=== PATIENT | male | born 1990 | race Hispanic/Latino ===

== ENCOUNTER 2016-09-27 11:15 | Emergency (ER) | payer OTHER ==
[~2016-09-27] VITALS: Ht 177.8 cm; Wt 88.6 kg
[~2016-09-27 11:15] MED LIST: HYDR-4003 PO; HYDR-656 PO; PENI500T PO; SULF1TAB7 PO
--- NOTE | 2016-09-27 11:23 | ED.REPORT ---
HPI-Overdose/Alcohol Toxicity Date of Service Sep 27, 2016 ED Provider: Cheo Alvarez Patient is a 26 year old male who presents to the ED requesting Suboxone to help with his opioid dependence. He uses about 1.5 grams a day. He sometimes uses meth. He denies fever, recent illness, or any other symptoms. Nursing Notes Stated Complaint: MEDICATION REQUEST Nursing Notes Reviewed: Yes Allergies: Coded Allergies: No Known Allergies (Verified Allergy, Unknown, 12/10/14) Scheduled Buprenorphine HCl/Naloxone HCl (Suboxone 8 mg-2 mg Sl Film) 1 Each Film 2 EACH SL DAILY Naloxone HCl (Naloxone HCl) 1 Mg/1 Ml Syringe 1 MG IJ ONCE Give 1 dose under the skin or into the muscle for narcotic overdose Naloxone HCl (Narcan) 4 Mg/Actuation [place] 4 MG NS ONCE Give 1 dose under the skin or into the muscle for narcotic overdose Penicillin V Potassium (Penicillin V Potassium) 500 Mg Tablet 500 MG PO TID Sulfamethoxazole/Trimeth 800-160 mg (Bactrim DS) 1 Each Tablet 1 TABLET PO BID Scheduled PRN Hydrocodone-Acetaminophen 5-325 mg (Hydrocodone-Acetaminophen 5-325 mg) 1 Each Tablet 1 TABLET PO QID PRN PRN For Pain hydrOXYzine Hcl (HydrOXYzine Hcl) 25 Mg Tablet 25-50 MG PO QID PRN PRN For Itching General Time Seen by Provider: 11:27 Chief Complaint Other (Medication request ) Hx Obtained From: Patient Arrived By: Walk-in Risk-Overdose/Alcohol Tox )( Suicide Risk Stratification : Substance abuseNo: Alcohol use, Prior psych admission RF Statements: Risk factors reviewed Past Medical History Past Medical History healthy Past Surgical History Reports: Cholecystectomy Smoking History Current Every Day Smoker Social History Alcohol Use: Denies alcohol use Drug Use: IV drugs, Meth, Other (Heroin) Other Social History: Good social support, Local resident Occupation Lives with Mom, no work Ambulatory Status Independent Review of Systems +Opioid dependence Constitutional: Denies: Chills, Fever Cardiovascular: Denies: Chest pain GI: Denies: Abdominal pain, Nausea, Vomiting Complete sys rev & neg: except as marked. Physical Exam Initial Vital Signs Vital Signs (First) Date Time Temp Pulse Resp B/P Pulse Ox O2 Delivery O2 Flow Rate FiO2 09/27/16 11:35 36.6 84 127/76 98 Room Air Initial VS: Reviewed Neck: Supple Skin: Warm, Dry General/Constitutional: Awake, Alert, Well developed Appearance / Presentation: Positive: Intoxicated Dozing mid-sentence Respiratory / Chest: Atraumatic, No respiratory distress Abdomen: Soft, Non-tender Neurologic: Oriented X3, Speech NL Psychiatric: Affect NL, Mood NL, Not suicidal Head / Eyes: Atraumatic, Normocephalic Pupils: Positive: Pinpoint Re-Eval/Medical Decision Re-Evaluation/Progress : Time of Eval: 11:40 )( Re-Eval Psychiatric: No danger to self, No danger to others, No suicidal ideation, No homicidal ideation Re-Evaluation/Progress Note: Discussed plan for discharge with Suboxone and dangers of taking Suboxone without being in withdrawal. Patient understands and agrees with plan. All questions addressed at this time. Counseled Regarding: Diagnosis, Need for follow-up, When/why to return to ED Discharge & Departure Impression: Primary Impression: Chronic narcotic dependence Disposition: Home Discharge Condition All VS Reviewed: Yes Condition: Stable Patient Instructions: Narcotic Abuse (ED) Additional Instructions: Call [facility] on Thursday to schedule an appointment later this week. Once you are in severe withdrawal, I recommend to Suboxone strips under the tongue once daily. Referrals: NOPCP (PCP) Scribe Attestation Portions of this note were transcribed by Katherin Strong. I, Dr. Alvarez personally performed the history, physical exam and medical decision-making; I reviewed and confirmed the accuracy of the information in the transcribed note. Signed by: Katherin Strong 09/27/16, 1146 Cheo Alvarez MD Sep 27, 2016 11:23 KATHERIN STRONG Sep 27, 2016 11:28 Cheo Alvarez MD Sep 27, 2016 11:23 KATHERIN STRONG Sep 27, 2016 11:28
[2016-09-27 11:35] VITALS: BP 127/76; PULSE 84; O2SAT 98
[2016-09-27] MEDS ORDERED: BUPR1FIL3 SL (11:38)
[2016-09-27] MEDS ORDERED: NALO1DIS IJ (11:38)
[2016-09-27] MEDS ORDERED: NALO4SPR NS (11:46)
[2016-09-27 11:49] VITALS: BP 127/76; PULSE 84; O2SAT 98
== END 2016-09-27 11:49 | disposition home or self-care (01) ==
LOC: SED 11:15
DX: F11.20 Opioid dependence, uncomplicated (principal); F17.210 Nicotine dependence, cigarettes, uncomplicated; F15.10 Other stimulant abuse, uncomplicated

== ENCOUNTER 2016-10-19 23:57 | Inpatient (IN) | payer OTHER ==
[~2016-10-19] VITALS: Ht 177.8 cm; Wt 79.2 kg
[~2016-10-19 23:57] MED LIST changes: +BUPR1FIL3 SL; +NALO1DIS IJ; +NALO4SPR NS
[2016-10-20] VITALS (15 sets, daily range): BP systolic 103–133; BP diastolic 45–83; PULSE 60–119; RESP 18–28; O2SAT 95–100
--- NOTE | 2016-10-20 00:47 | ED.REPORT ---
HPI-Abd Pain M Under 40 Date of Service Oct 20, 2016 ED Provider: Terry Fields MD A 26 year old male with a history of IV drug use presents to the ED with pleuritic abdominal pain onset two days ago. Associated symptoms include back pain, nausea, syncopal episodes (x3), urinary incontinence with the syncopal episodes, and fever (38.8 in ED). The patient denies melena, hematochezia, numbness, cough, or other symptoms. He admits to using heroin 7-8hrs prior to arrival. Nursing Notes Stated Complaint: ABDOMINAL AND BACK PAIN Chief Complaint: Male Abdominal Pain Nursing Notes Reviewed: Yes Allergies: Coded Allergies: No Known Allergies (Verified Allergy, Unknown, 12/10/14) General Time Seen by MD: 00:46 Chief Complaint Abdominal pain Hx Obtained From: Patient Arrived By: Walk-in Sudden in Onset?: No Onset Occurred: 2 days ago Symptom Duration: Since onset Location: : Back: Diffuse Quality: Painful Severity: Current: Moderate Severity: Maximum: Moderate Associated with: Reports: Fever, Nausea, Denies: Hematochezia, Melena Pertinent Negative: Relieved by nothing Recent Healthcare: No recent doctor visit Past Medical History Past Medical History None reported Past Surgical History Reports: Cholecystectomy Smoking History Current Every Day Smoker Social History Alcohol Use: Denies alcohol use Drug Use: IV drugs, Meth, Other (Heroin) Other Social History: Good social support, Local resident Occupation Lives with Mom, no work Ambulatory Status Independent Review of Systems Constitutional: Reports: Fever (38.8 in ED) Respiratory: Reports: Pleuritic pain, Denies: Non-productive cough, Shortness of breath GI: Reports: Abdominal pain, Nausea, Denies: Diarrhea, Hematochezia, Melena, Vomiting Male: Reports Incontinence Musculoskeletal: Reports: Back pain Complete sys rev & neg: except as marked. Neurologic: Reports: Syncope (x3), Denies: Numbness Physical Exam Physical Exam Notes: Initial Vital Signs Vital Signs (First) Date Time Temp Pulse Resp B/P Pulse Ox O2 Delivery O2 Flow Rate FiO2 10/20/16 00:16 38.8 119 24 133/83 98 Room Air Initial VS: Reviewed Head / Eyes: Atraumatic, Normocephalic ENT: Conjunctiva normal, No scleral icterus Neck: Supple, Full range of motion Extremities: Vascular intact, Neuro intact, No swelling Neurologic: Alert, Oriented, Nonfocal Psychiatric: Mood/affect normal, Behavior normal, Normal thought content Respiratory / Chest: Breath sounds NL, Breath sounds = bilat, No respiratory distress, No rales Splinting with respiration Cardiovascular: Regular rhythm, Heart sounds NL, No murmurs Heart Rate / Rhythm: Positive: Tachycardia Abdomen: Soft Tenderness/Guarding/Rebound: Positive: Tender diffuse, Tender epigastric (Worst ) Skin: Warm, Dry Multiple track li consistent with IVDA Interpretation & Diagnostics Lab Results Interpretation Result Diagram: 10/20/16 0030 10/20/16 0030 Test 10/20/16 00:30 10/20/16 03:10 White Blood Count 23.8th/mm3 (3.8-10.1) Red Blood Count 5.19mil/mm3 (4.40-5.80) Hemoglobin 14.6g/dL (13.8-17.2) Hematocrit 43.6% (41.0-50.0) Mean Corpuscular Volume 84.0fL (81-100) Mean Corpuscular Hemoglobin 28.1pg (27.0-35.0) Mean Corpuscular Hemoglobin Concent 33.5% (32.0-37.0) Red Cell Distribution Width 13.1% (12.3-15.4) Platelet Count 360bil/L (150-400) Neutrophils (%) (Auto) 75.2% (40-74) Lymphocytes (%) (Auto) 14.4% (14-46) Monocytes (%) (Auto) 10.0% (4-12) Eosinophils (%) (Auto) 0% (0-5) Basophils (%) (Auto) 0.1% (0-3) Erythrocyte Sedimentation Rate 15mm/hr (0-15) Hold Purple Top Tube Received (Received) Prothrombin Time 11.9sec (8.1-12.5) Prothromb Time International Ratio 1.11ratio Activated Partial Thromboplast Time 30.6sec (22.8-33.0) Hold Blue Top Tube Received (Received) Sodium Level 131mEq/L (134-144) Potassium Level 4.4mEq/L (3.5-5.2) Chloride Level 92mEq/L (97-108) Carbon Dioxide Level 23mmol/L (18-29) Blood Urea Nitrogen 11mg/dL (6-20) Creatinine 0.74mg/dL (0.76-1.27) Estimat Glomerular Filtration Rate 138mL/min (>59) Glucose Level 108mg/dL (60-99) Calcium Level 9.1mg/dL (8.5-10.1) Phosphorus Level 3.8mg/dL (2.5-4.9) Magnesium Level 2.2mg/dL (1.6-2.6) Total Bilirubin 0.9mg/dL (0.0-1.2) Aspartate Amino Transf (AST/SGOT) 23U/L (0-50) Alanine Aminotransferase (ALT/SGPT) 24U/L (0-44) Alkaline Phosphatase 83U/L (25-150) Troponin T 0.010ug/L (0.0-0.011) Pro-B-Type Natriuretic Peptide 48.37pg/mL (0-86) Total Protein 9.2g/dL (6.4-8.4) Albumin 3.9g/dL (3.4-5.0) Lipase 17U/L (13-60) Procalcitonin 0.49ng/mL (0.00-0.08) Hold [place] Top Tube Received (Received) Lactic Acid Level 0.6mmol/L (0.4-2.0) Hold [place] Top Tube Received (Received) ECG Interpretation ECG Interpretation: Sinus tachycardia rate 114 Time: 01:12 Interpreted by: ED physician X-Ray Chest Interpretation Chest Xray Interpretation: Poor inspiration Nothing acute View: Portable, 1 view Interpretation / Wet Read by: Wet read ED physician CT Chest Interpretation CONCLUSION: No CT evidence of pulmonary emboli. Bilateral pulmonary infiltrates which could be due to either infection and/or aspiration given the clinical history. Small pulmonary nodules. Transmitted to ED at 10/20/2016 - 2:48:09 AM PDT Study type: CT pulm angiogram Interpretation / Wet Read by: Interpret - Radiologist (Amor Villeda M.D.) CT Abd / Pelvis Interpretation CONCLUSION: Cholelithiasis without CT evidence of cholecystitis. Bilateral kidney lesions which would raise the possibility of pyelonephritis possibly due to septic emboli. This would also increase the concern about pulmonary infiltrates being related to septic emboli. Findings discussed with Dr. Fields at 10/20/2016 2:52:38 AM PDT He states patient is septic. Study type: Abdominal CT IV contrast Interpretation / Wet Read by: Interpret - Radiologist (Amor Villeda M.D.) CT Head Interpretation CONCLUSION: Normal. Transmitted to ED at 10/20/2016 - 3:41:23 AM PDT Study: Head CT w contrast Interpretation / Wet Read by: Interpret - ED physician (Amor Villeda M.D.) Re-Eval/Medical Decision Med Decision/Clinical Course 26-year-old heroin addict presents with fever, tachycardia, abdominal pain radiating to his back, syncope, urinary incontinence, and multiple embolic lesions apparent on CAT scan. CT of his cranium is negative for mass lesion. He has endocarditis presumptively. He has both lung lesions and kidney lesions and may have both right and left side involvement. Begun with vancomycin per standard protocol. Blood cultures [address] did not reveal any obvious evidence of epidural lesion, but dedicated CT was not obtained for the L-spine. Plan echo this morning and consider MRI to exclude epidural abscess. Source of Hx: Old records Re-Evaluation/Progress : Time of Eval: 02:59 Patient Status: Condition improved Re-Evaluation/Progress Note: Discussed with patient CT, x-ray, and lab results, diagnosis, and plan for admit. Patient agrees with plan for care and all questions were addressed. Consultation : Referral / Consult Name: Luna Ramirez DO Consulted With: Hospitalist Call Returned at: 03:53 Water Taxi Captain: Agrees with eval, Agrees with plan, Accepts admit Counseled Regarding: Diagnosis, Lab results, Need for admission Patient Discharge & Departure Primary Impression: SBE (subacute bacterial endocarditis) Additional Impressions: Sepsis Sepsis type: sepsis due to unspecified organism Qualified Code: A41.9 - Sepsis, unspecified organism Septic embolism Disposition: ADMITTED TO HOSPITAL Discharge Condition All VS Reviewed: Yes Referrals: NOPCP (PCP) [facility] Crit Care Except Billable Proc Time Spent: 30-74 minutes (thirty minutes) Services Performed: Patient management by me, Time spent at bedside, Reviewing test results, Reviewing imaging, Discussing patient care, Documentation in record, Time with fam/surrogate Scribe Attestation Portions of this note were transcribed by Catalina Ocampo. I, Dr. Fields, personally performed the history, physical exam, and medical decision-making; I reviewed and confirmed the accuracy of the information in the transcribed note. Signed by: Jb Moreira, 10/20/2016, 05:55 copies to: [facility] Terry Fields MD Oct 20, 2016 00:47 CATALINA OCAMPO Oct 20, 2016 00:56
[2016-10-20 00:52] LABS: BASOPHILS % (AUTO) 0.1 % (0-3); EOSINOPHILS % (AUTO) 0 % (0-5); Mean Corpuscular Hemoglobin 28.1 pg (27.0-35.0); NEUTROPHILS % (AUTO) 75.2 % (40-74); Platelet Count 360 bil/L (150-400)
[2016-10-20] MEDS ORDERED: 0.9% Sodium Chloride 1,000 ML IV PRN (00:53)
[2016-10-20] MEDS ORDERED: HYDROcodone-APAP 5-325 mg Tablet PO ONE (00:55)
[2016-10-20 01:36] LABS: INR 1.11 ratio
[2016-10-20 01:37] LABS: Magnesium 2.2 mg/dL (1.6-2.6); TROPONIN T 0.01 ug/L (0.0-0.011)
[2016-10-20 01:38] LABS: Phosphorus 3.6 mg/dL (2.5-4.9)
[2016-10-20] MEDS ORDERED: Vancomycin Dose per Pharmacist XX SCH (04:00)
[2016-10-20] MEDS ORDERED: Polyethylene Glycol (PEG) 17 Gm Powder PO PRN (04:05)
[2016-10-20] MEDS ORDERED: Alum-Mag Hydrox-Simeth 30 mL Suspension PO PRN (04:05)
[2016-10-20] MEDS ORDERED: Vancomycin Inj 1,500 MG in 0.9% Sodium Chloride 500 ML IV ONE (04:45)
--- NOTE | 2016-10-20 04:51 | PCM.HPMED ---
Subjective Date of Service Oct 20, 2016 Primary Provider: Admitting Physician: Luna Ramirez DO Primary Care Physician: Nopcp Attending Physician: Luna Ramirez DO Chief Complaint: abdominal and back pain History of Present Illness: Patient is a 26 y.o. M with past medical history of IVDU heroin and methamphetamine, needle sharing, three previous OD on heroin, last heroine use 7 -8 hours prior to ED admission, last meth use yesterday (patient stated that made the pain worse). Patient presented to ED with two day history of worsening chest pain, abdominal pain with radiation to back. Patient described chest pain as constant, severe, sharp and tight, with radiation to back, worse with inspiration and coughing, made better by PO percocet. Abdominal pain described as constant severe, diffuse, made worse with inspiration and coughing, radiation to back. Associated with shortness of breath, tachycardia, nausea, vomiting, fever, chills, sweating, urinary incontinence, itching. Patient denies blood in stool, numbness, tingling, change in vision, auditory hallucination, visual hallucination, thoughts of suicide, thoughts of homicide. In the ED CT scan of the brain negative for intracranial process, CT scan of abdomen and pelvis showed septic emboli to kidneys bilaterally, CT angio of chest showed multiple septic emboli to lungs bilaterally, no over vegetations of heart valves noted on CT chest. WCT 23, mild hyponatremia, lactic acid 1.6. Initially tachycardic on presentation improved with fluid resuscitation, Review of Systems: Comprehensive review of systems conducted and was negative except for the pertinent positives listed above. Allergies Coded Allergies: No Known Allergies (Verified Allergy, Unknown, 12/10/14) Home Medications Buprenorphine HCl/Naloxone HCl (Suboxone 8 mg-2 mg Sl Film) 1 Each Film 2 EACH SL DAILY Naloxone HCl (Naloxone HCl) 1 Mg/1 Ml Syringe 1 MG IJ ONCE Give 1 dose under the skin or into the muscle for narcotic overdose Naloxone HCl (Narcan) 4 Mg/Actuation [place] 4 MG NS ONCE Give 1 dose under the skin or into the muscle for narcotic overdose Penicillin V Potassium (Penicillin V Potassium) 500 Mg Tablet 500 MG PO TID Sulfamethoxazole/Trimeth 800-160 mg (Bactrim DS) 1 Each Tablet 1 TABLET PO BID PMH IVDU heroin and Methamphetamine Surgical History Cholecystectomy Family History Family history of CAD No history of cancer Social History Hx Alcohol Use: No Hx Substance Use: Yes (meth, heroin) Hx Tobacco Use: Yes Smoking Status: Current Every Day Smoker (3 cigaretts per day) Exam Vital Signs Vital Sign - Last Date Time Temp Pulse Resp B/P Pulse Ox O2 Delivery O2 Flow Rate FiO2 10/20/16 04:16 80 18 103/49 96 10/20/16 03:35 Room Air 10/20/16 02:38 37.2 Intake and Output 10/19/16 10/19/16 10/20/16 Cumulative From/Thru 15:00 23:00 07:00 10/20/16 00:16 - 10/20/16 03:38 Intake Total 3000 ml 3000 ml Balance 3000 ml 3000 ml Intake IV Total 3000 ml 3000 ml Exam General: Somnolent, Oriented X3, Cooperative, moderate Distress Head: Normocephalic, atraumatic. External ears normal. Eyes: PERRLA, EOMI. Anicteric sclerae. Mouth: Mouth Normal, Mucous Membranes Dry/[place] Neck: Neck supple with full range of motion. No JVD Chest & Lungs: Clear to auscultation bilaterally with no crackles, wheezes, or rhonchi, no respiratory distress, reduced inspiratory effort due to pain, chest pain reproducible with palpation of chest wall Cardiovascular: Regular Rate/Rhythm, Normal S1, Normal S2, No Murmurs/Rubs/ Gallops Abdomen: Non-tender, Non-distended, No masses, Normoactive bowel tones, Soft, CVA tenderness bilaterally Musculoskeletal: Normal Range of Motion Extremities: No cyanosis/clubbing/edema bilaterally, peripheral pulses intact, no splinter hemorrhages or dominguez spots noted on physical exam Neurological: Grossly Neurologically Intact, speech muffled, Strength Normal 4/ 4 ext, Sensation Intact, Cerebellar Function nl Finger-Nose but slowed, Reflexes slowed Lymphadenopathy: no cervical or axillary lymphadenopathy palpated Psychological: Flat affect, poor insight, poor judgment, patient voices desire to quit drug use. Lab and Diagnostics Result Diagram: 10/20/160 10/20/160 X-Rays, CTs and MRIs CT scan of the brain negative for intracranial process, CT scan of abdomen and pelvis showed septic emboli to kidneys bilaterally, CT angio of chest showed multiple septic emboli to lungs bilaterally, no over vegetations of heart valves noted on CT chest 12-lead ECG ECG Interpretation: Sinus tachycardia rate 114 Time: 01:12 Interpreted by: ED physician Assessment & Plan Patient is a 26 y.o. M with past medical history of IVDU heroin and methamphetamine, needle sharing, three previous OD on heroin, last heroine use 7 -8 hours prior to ED admission, last meth use yesterday, admitted to ED for worsening chest and abdominal pain. Admitted for treatment of sub acute bacterial endocartitis due to IVDU, sepsis with septic emboli to lungs and kidneys. 1. Subacute Bacterial endocartitis secondary to IVDU - Patient has history of IVDU heroin and methamphetamine, multiple septic emboli noted on CT of lungs and kidneys, indicative of right and left sided heart valve involvement - Roland criteria + 3 minor criteria: fever, septic emboli on CT, IVDU - IV Vancomycin ordered dosed per pharmacy - Continue IV fluid resuscitation NS @ 125 mls/hr - TTE - Percocet 5 mg Q6 hours for pain - Infectious disease consult placed - Rheumatoid factor ordered, pending - Blood cultures, procalcitonin, lactic acid ordered as below - Continue to monitor 2. Sepsis, acute - Likely source of infection SBE, r/o UTI, pyelonephritis, aspiration pneumonia , STI/STD - WCT 23, lactic acid 1.6 - CT scan chest, abdomen/pelvis show - Blood culture x2 ordered, pending - Procalcitonin ordered, 0.49 - Continue to monitor 3. Urinary retention - Likely due to septic emboli to kidneys vs UTI vs STD/STI - [place] cath - Bladder scan ordered - UA and culture ordered - G/C urine ordered 4. IVDU heroin and methamphetamine - Prior overdoses x 3, - Clonazepam 0.5 PRN for signs of withdrawal - Continue to monitor 5. High risk behavior - IVDU, needle sharing, never screened for HIV, Hepatitis, STD/STI - HIV 1/2 screen ordered - Hepatitis panel ordered - G/C screen urine ordered CODE STATUS: FULL CODE DVT prophylaxis: Sub Q heparin Patient is admitted under inpatient status with expected length of stay greater than 2 midnights due to severity of presenting symptoms, risk of adverse event, and complexity of treatment plan. Pain Evaluation: Adequate Pain Control VTE Prophylaxis: Sub-Q Heparin (Unfractionated) Resuscitation Status: CPR: Attempt Resuscitation Attending Statement The patient was seen and examined together with house staff on 10/20/2016 and I agree with the history, exam and plan as outlined in the note above. GEOVANI BUNCH DO Oct 20, 2016 04:51 Luna Ramirez DO Oct 20, 2016 06:22
[2016-10-20] MEDS ORDERED: Vancomycin Dose per Pharmacist XX ONE (05:09)
--- NOTE | 2016-10-20 05:15 | NUR ---
Admit Note: Report received from Michael Verdin RN. Pt. arrived to room 2005 at 0450 via stretcher. Pt. ambulated from stretcher to bed independently, gait strong and steady. Alert and oriented X3. Pleasant and cooperative with care at this time. Accompanied by mother. Denies chest pain. Denies SOB at rest, however complains of SOB with activity. VSS. Telemetry sinus rhythm. Pt. complaining of 8/10 back pain, awaiting orders in eMAR. No overt signs of distress at this time.
[2016-10-20 05:16] LABS: APPEARANCE,URINE CLEAR (CLEAR,HAZY); COLOR,URINE DARK YELLOW (YELLOW); OCCULT BLOOD,URINE NEGATIVE (NEGATIVE); PH,URINE 6.5 (5.0-8.0)
[2016-10-20] MEDS: 0.9% Sodium Chloride 1,000 ML IV SCH ×3 (05:30→19:42)
[2016-10-20] MEDS: oxyCODONE-Acetamin 5-325 mg Tablet PO PRN (06:20)
--- NOTE | 2016-10-20 08:24 | DRSVH ---
PROCEDURE: CT BRAIN WITHOUT CONTRAST ([id number]) INDICATIONS: Syncope, possible septic emboli TECHNIQUE: Noncontrast 4.5 mm thick angled axial sections acquired from the foramen magnum to the vertex, with c oronal reformats. COMPARISON: None. FINDINGS: Image quality: Excellent. CSF spaces: Basal cisterns are patent. No extra-axial fluid collections. Ventricles are normal in size and shape. Brain: No midline shift. No intracranial masses or hemorrhage. Wagg[place]-white matter interface is norm al. Skull and face: Calvarium and visualized facial bones are intact, without suspicious lesions. Sinuses: Visualized sinuses and mastoids are clear. IMPRESSION: 1. Normal head CT No significant discrepancy with the police shift commander radiology preliminary report. Dictated by: Mer Mandujano M.D. on 10/20/2016 at 8:21 Approved by: Mer Mandujano M.D. on 10/20/2016 at 8:23
[2016-10-20] MEDS: Heparin 5,000 Unit/mL Inj SUBQ SCH ×3 (08:35→23:59)
[2016-10-20] MEDS: Sodium Chloride LOK Flush 10 mL Syringe IVFLUSH SCH ×3 (08:35→23:59)
--- NOTE | 2016-10-20 09:37 | DRSVH ---
PROCEDURE: CT ANGIO CHEST PULMONARY EMBOLISM ([id number]) INDICATIONS: syncope, incontinence, chest pain TECHNIQUE: After the administration of intravenous contrast, 2 mm thick sections acquired from the pulmonary api car to the posterior costophrenic angles. 3-dimensional maximum intensity projection (MIP) coronal a nd sagittal reformats were then acquired through the thorax. For radiation dose reduction, the follo wing was used: automated exposure control, adjustment of mA and/or kV according to patient size. COMPARISON: [facility], CR, XR CHEST 1VW (PORTABLE), 10/20/2016, 1:10. FINDINGS: Image quality: Excellent. Pulmonary arteries: Pulmonary arteries are normal in size, and demonstrate no intraluminal filling d efects to suggest central pulmonary embolism. Lungs and pleura: Bilateral infiltrates and pulmonary nodules are present involving the lower lobes and lingula consistent with pneumonia. There is small right effusion and trace left effusion. Centra l and peripheral airways are patent. Mediastinum: Heart size is normal, without pericardial effusion. No mediastinal or hilar adenopathy . Thoracic aorta is normal in caliber and enhancement. Esophagus is normal in caliber, without hiat al hernia. Bones and chest wall: No suspicious bony lesions. Ribs and thoracic spine appear intact throughout. Thyroid gland is normal. No axillary or supraclavicular adenopathy. Abdomen: Visualized upper abdominal solid organs appear normal in the early arterial phase of enhanc ement. IMPRESSION: 1. No evidence for central pulmonary embolism. 2. Bilateral pulmonary infiltrates and nodules consistent with pneumonia, including atypical infectio ns. 3. Small right effusion trace left effusion. No significant discrepancy with the boiler fitter radiology preliminary report. Dictated by: Mer Mandujano M.D. on 10/20/2016 at 9:30 Approved by: Mer Mandujano M.D. on 10/20/2016 at 9:36
--- NOTE | 2016-10-20 09:41 | DRSVH ---
PROCEDURE: CT ABDOMEN AND PELVIS WITH CONTRAST ([id number]) INDICATIONS: syncope, incontinence, chest pain TECHNIQUE: After the administration of intravenous contrast, 5 mm thick sections acquired from the diaphragm to the symphysis. 5 mm coronal and sagittal reformats were acquired. For radiation dose reduction, the following was used: automated exposure control, adjustment of mA and/or kV according to patient hilton e. COMPARISON: [facility], CT, ABD/PELVIS W/CON (PNL), 10/28/2009, 4:31. FINDINGS: Image quality: Excellent. ABDOMEN: Lung bases: Patchy airspace opacity is noted in the lung bases bilaterally suspicious for pneumonia. Trace bilateral pleural fluid collections noted. Heart size is normal. Solid organs: Liver and spleen are normal in size and enhancement. Gallbladder multiple large alicia sterol gallstones.. Biliary system is non dilated. Pancreas enhances normally. No adrenal nodules. Kidneys demonstrate normal size without hydronephrosis. Multiple, bilateral, hypoattenuating, heter ogeneously enhancing lesions are noted in the kidneys. Lesions are suspicious for pyelonephritis poss ibly secondary to septic emboli. Peritoneum and bowel: Bowel loops demonstrate normal wall thickness and caliber. No free fluid or a ir. The appendix is normal. Nodes and vessels: No retroperitoneal or mesenteric adenopathy by size criteria. Aorta and inferior vena cava are normal in size. Miscellaneous: No ventral hernias. PELVIS: Genitourinary: Bladder wall thickness is normal. Miscellaneous: No inguinal hernias or adenopathy. Bones: No suspicious bony lesions. No vertebral body compression fractures. IMPRESSION: 1. Patchy airspace opacities in the lung bases bilaterally suspicious for pneumonia. 2. Probable bilateral pyelonephritis. 3. Bilateral pyelonephritis and by basilar pneumonia concerning for septic emboli. Please correlate w ith clinical data. 4. Cholelithiasis. Dictated by: Dana Caicedo MD, PhD on 10/20/2016 at 9:33 Approved by: Dana Caicedo MD, PhD on 10/20/2016 at 9:40
--- NOTE | 2016-10-20 09:50 | CONS ---
[address] [address] CONSULTATION REPORT PATIENT: LORI BALDWIN : 1990 MR#: [id number] ADMIT: 10/20/2016 JOB ID: [id number] DATE OF SERVICE: 10/20/[address] Powell for this timely consult. REASON FOR CONSULTATION: Sepsis in an IV drug user. HISTORY OF PRESENT ILLNESS: The patient is a 26-year-old gentleman, who has been injecting meth and heroin by the intravenous route for three years. He reports extremely poor hygienic practices when it comes to injecting, as he frequently shares nonsterile needles with other addicts and injects on a very frequent basis. He reports he has not had life-threatening complications of infection in the past. The patient reports he was in his usual state of health until two or three days ago when he developed chills, bilateral pleuritic chest pain, a dry cough and very severe back pain. These symptoms came on suddenly and eventually led him to come to the ED last night. Foremost among these symptoms was bilateral and unrelenting pleuritic chest pain associated with a minimal dry cough, with the severe back pain as a secondary symptom. The back pain is primarily between the scapula, but also in the low back. He reports injecting right up until hours before the time of admission. As stated, he denies any life-threatening complications or serious infections arising from IV drug use in the past despite poor injection technique. PAST MEDICAL HISTORY: 1. IV heroin and methamphetamine use. 2. Status post cholecystectomy. 3. Contrary to notes in the chart, the patient reports he absolutely was not taking any antibiotics in the days and weeks prior to admission. SOCIAL HISTORY: The patient is an ongoing IV heroin and meth user. He is also a daily cigarette smoker. He does not drink alcohol. He was born in [place] and grew up in [place], and attended [employer]. Meanwhile, lives with his grandmother. FAMILY HISTORY: Negative for tuberculosis in any first-degree relatives. REVIEW OF SYSTEMS: Was done in its entirety. The patient says he has rather severe headaches which started within the last few days. He reports no change in mentation. No weakness. No stumbling or other neurologic symptom. No change in vision. He reports no sore throat or trouble swallowing. No odynophagia. No dysphagia. No stiff neck. He has quite severe back pain between the scapula and to a lesser extent on the lumbar spine. He notes no nausea, anorexia, and malaise. No vomiting per se. No diarrhea. He denies urgency, frequency or dysuria. No pain or swelling in any of his joints, though he does have diffuse myalgias and arthralgias, and specifically, no neurologic problems. Remainder of the review of systems was negative. PHYSICAL EXAMINATION: Reveals an afebrile, well-developed, well-nourished, gentleman. Temperature is 36.7. It was 38.8 at midnight when he was being admitted. Pulse is in the 80s, respiratory rate 20, blood pressure 106/59, saturates well on room air. The patient appears to be in some discomfort, especially when he takes a deep breath. His mental status is clear. His head is without trauma. Eyes without conjunctival or scleral abnormalities, and specifically no conjunctival petechia or hemorrhage. The oral cavity is without thrush, hairy leukoplakia or pharyngitis. The neck is without adenopathy and is completely supple. Careful examination of the spine shows the patient is quite tender between about C7 and T3 to palpation. This is very severe tenderness and reproducible. To a lesser degree, there is tenderness around the lower thoracic and lumbar spine, but this is more ill defined to palpation. The patient's lungs are notable for scattered rhonchi. Cardiac tones are surprisingly clear, with no murmurs, rubs or gallops appreciated, and regular rate and rhythm. Peripheral pulses are excellent. The patient's abdomen is quite interesting that he has a palpable spleen, which extends 1-2 cm below the left costal margin. It is difficult to examine his right upper quadrant as he seems to have some pain, but I do think his liver extends a couple of cm below the right costal margin. The abdomen is, in general, fairly benign aside from the hepatosplenomegaly. Suprapubic area is without abnormality. No Ford catheter. No cervical and inguinal adenopathy. He has no effusions of any joint. He has full range of motion of all his joints. There is no petechia on the lower extremities. He has good strength in the lower and upper extremities, and is neurologically completely intact. No skin rashes noted. LABORATORIES: Include white count of 23,000, almost 24,000, with left shift. Sed rate is only 15, interestingly lactic acid 0.6. Procalcitonin is abnormal at 0.49. Liver function tests normal. Albumin 3.9, creatinine 0.74. Urinalysis without white cells. Four sets of blood cultures are pending from the last 12 hours. IMAGING: Most of the imaging has not been formally read, CT of the brain has been read and is negative. I reviewed the CT of the chest, which appears to show numerous nodules. There is a report of a wet read by Radiology suggesting the abdominal CT may show renal infarcts, but I cannot see these images on this computer. IMPRESSION: It seems likely this patient has left, right or bilateral endocarditis. The patient is an IV drug user who, by his own admission, uses extremely poor technique and now presents with chills, a documented fever, severe bilateral pleuritic chest pain, numerous pulmonary nodules, which have the appearance of septic emboli as one would expect from right-sided endocarditis, and possibly infarcts in the spleen, though as of yet, I have not had the opportunity to confirm this with Radiology. It seems highly likely the patient has at least right-sided endocarditis and possibly left-sided involvement as well, if indeed there is abnormalities of the kidneys. Also of great concern here is his quite severe intrascapular back pain which raises the possibility of spinal epidural abscess. RECOMMENDATIONS: 1. I agree with the multiple blood cultures and getting the patient started on vancomycin. 2. I agree with the echo which has been ordered. 3. The HIV and hepatitis C have been inexplicably canceled, and I will reorder those. 4. We await the multiple studies which are pending. 5. I am going to order an immediate MRI scan of the entire spine to include cervical, thoracic and lumbar. I recognize this is extensive, and also unpleasant for the patient as he will have to lay on a hard metal table for an hour or more, but I think it is essential in this patient with a very high likelihood of bacteremia that we make certain that there is not spinal epidural abscess or vertebral osteomyelitis. 6. I informed the patient this is a life-threatening condition which will likely require him to be hospitalized for several weeks. I told him that leaving early during our workup and before our therapy is complete would likely result in his if, in fact, he has either endocarditis or spinal epidural abscess, both of which I think are quite possible. Thank you very much for this consult.
--- NOTE | 2016-10-20 10:43 | DRSVH ---
PROCEDURE: X-RAY CHEST ONE VIEW, PORTABLE ([id number]) INDICATIONS: CHEST PAIN. TECHNIQUE: One view of the chest was acquired. COMPARISON: None. FINDINGS: Surgical changes and devices: None. Lungs and pleura: No pleural effusions or pneumothorax. Lungs are clear, aside from minimal left ba silar airspace opacity. Mediastinum: Mediastinal contours appear normal. Heart size is normal. Bones and chest wall: No suspicious bony lesions. Overlying soft tissues appear unremarkable. IMPRESSION: 1. Left atelectasis versus aspiration or pneumonia. Correlate clinically. Dictated by: Mehdi Garces [facility] Interpreted: Dana Caicedo MD on 10/20/2016 at 8:48 Transcribed by: KHADRA on 10/20/2016 at 13:43 Approved by: Dana Caicedo MD, PhD on 10/20/2016 at 16:30
--- NOTE | 2016-10-20 12:44 | PCM.PNMED ---
Subjective Date of Service Oct 20, 2016 Subjective He feels ill. He is having a lot of pleuritic chest pain in both sides. He has a dry cough. No fevers or chills. No midline back pain. No big joint pain in his shoulders or elbows. No nausea or vomiting or diarrhea. His last heroin use was yesterday. He injects in his arms and neck. Exam Vital Signs Vital Sign - Last Date Time Temp Pulse Resp B/P Pulse Ox O2 Delivery O2 Flow Rate FiO2 10/20/16 09:26 70 10/20/16 08:26 35.9 20 108/55 100 Room Air Intake and Output 10/19/16 10/19/16 10/20/16 Cumulative From/Thru 15:00 23:00 07:00 10/20/16 00:16 - 10/20/16 06:28 Intake Total 3722 ml 3722 ml Output Total 500 ml 500 ml Balance 3222 ml 3222 ml Intake Oral 0 ml 0 ml IV Total 3722 ml 3722 ml Output Urine Total 500 ml 500 ml # Voids 1 1 Exam Alert oriented 3, in no distress Anicteric sclerae Lungs are clear with normal effort. Heart is regular without murmur gallop or rub. Abdomen is flat and nontender. Extremities are free of edema good pedal pulses. Skin is otherwise free of rash or lesions other than stigmata of IVDU over both arms and neck. He also has multiple tattoos. IVs and Medications Medications Reviewed: Medications were reviewed in detail Lab and Diagnostics Result Diagram: 10/20/16 0030 10/20/16 0030 X-Rays, CTs and MRIs CT scan of the brain negative for intracranial process, CT scan of abdomen and pelvis showed septic emboli to kidneys bilaterally, CT angio of chest showed multiple septic emboli to lungs bilaterally, no over vegetations of heart valves noted on CT chest 12-lead ECG ECG Interpretation: Sinus tachycardia rate 114 Time: 01:12 Interpreted by: ED physician Assessment & Plan Patient is a 26 y.o. M with past medical history of IVDU heroin and methamphetamine, needle sharing, three previous OD on heroin, last heroine use 7 -8 hours prior to ED admission, last meth use yesterday, admitted to ED for worsening chest and abdominal pain. Admitted for treatment of sub acute bacterial endocartitis due to IVDU, sepsis with septic emboli to lungs and kidneys. 1. Subacute Bacterial endocartitis secondary to IVDU - Patient has history of IVDU heroin and methamphetamine, multiple septic emboli noted on CT of lungs and kidneys, indicative of right and left sided heart valve involvement - Roland criteria + 3 minor criteria: fever, septic emboli on CT, IVDU - IV Vancomycin ordered dosed per pharmacy - Continue IV fluid resuscitation NS @ 125 mls/hr - TTE - Percocet 5 mg Q6 hours for pain - Infectious disease consult placed - Rheumatoid factor ordered, pending - Blood cultures, procalcitonin, lactic acid ordered as below - Continue to monitor We will place him in isolation in contact isolation awaiting cultures and continue vancomycin. We will also pursue infectious disease consultation. 2. Sepsis, acute - Likely source of infection SBE, r/o UTI, pyelonephritis, aspiration pneumonia , STI/STD - WCT 23, lactic acid 1.6 - CT scan chest, abdomen/pelvis show - Blood culture x2 ordered, pending - Procalcitonin ordered, 0.49 - Continue to monitor We will continue fluid resuscitation. 3. Urinary retention - Likely due to septic emboli to kidneys vs UTI vs STD/STI - Place Ford cath - Bladder scan ordered - UA and culture ordered - G/C urine ordered UA is dip negative. Will follow clinically. 4. IVDU heroin and methamphetamine - Prior overdoses x 3, - Clonazepam 0.5 PRN for signs of withdrawal - Continue to monitor He is currently being given morphine for pain control. 5. High risk behavior - IVDU, needle sharing, never screened for HIV, Hepatitis, STD/STI - HIV 1/2 screen ordered - Hepatitis panel ordered - G/C screen urine ordered CODE STATUS: FULL CODE DVT prophylaxis: Sub Q heparin Patient is admitted under inpatient status with expected length of stay greater than 2 midnights due to severity of presenting symptoms, risk of adverse event, and complexity of treatment plan. Pain Evaluation: Pain not Controlled VTE Prophylaxis: Sub-Q Heparin (Unfractionated) Resuscitation Status: CPR: Attempt Resuscitation Time spent 30 minutes Froy Piña MD Oct 20, 2016 12:44
[2016-10-20] MEDS: Acetaminophen IV 1,000 MG in IV Premix 1 EACH IV PRN ×2 (13:33→20:58)
--- NOTE | 2016-10-20 14:56 | DRSVH ---
[facility] [address] [place] [address] Echocardiogram Report Name: LORI BALDWIN Study Date: 10/20/2016 Height: 70 in Hospital Exam Location: [facility] Weight: 177 lb Gender: Male BSA: 2.0 m2 : 1990 Age: 26 yrs BP: 106/59 mmHg Reason For Study: Endocarditis History: IVDA, SMOKER Ordering Physician: Performed By: Sar[facility]vallesR[facility] Interpretation Summary The left ventricle is normal in size, wall thickness, and systolic function without any focal wall motion abnormalities. The ejection fraction is estimated to be 60-65%. The right ventricle is normal in size and function. The left atrium is mildly dilated. Right atrial size is normal. There is no obvious valvular vegetation identified on this exam. Consider EFREN if there is a high degree of clinical suspicion for endocarditis and clinically appropriate. There is no significant valvular heart disease. The aortic root is normal size. Procedure: A two-dimensional transthoracic echocardiogram with color flow and Doppler was performed. The study quality was technically adequate. There is no prior echocardiogram noted for this patient. The patient was in normal sinus rhythm during the exam. Left Ventricle: The left ventricle is normal in size, wall thickness, and systolic function without any focal wall motion abnormalities. A false chord is noted (normal variant). The ejection fraction is estimated to be 60-65%. The transmitral spectral Doppler flow pattern is normal for age. Right Ventricle: The right ventricle is normal in size and function. Atria: The left atrium is mildly dilated. Right atrial size is normal. There is no Doppler evidence for an interatrial shunt. Mitral Valve: The mitral valve is normal in structure and function. There is trace mitral regurgitation. Aortic Valve: The aortic valve is normal in structure and function. No aortic regurgitation is present. Tricuspid Valve: The tricuspid valve is normal in structure and function. Pulmonary artery pressures cannot be estimated because of the lack of a measurable TR jet velocity. Pulmonic Valve: The pulmonic valve is normal in structure and function. There is no pulmonic valvular regurgitation. There is no obvious valvular vegetation identified on this exam. Consider EFREN if there is a high degree of clinical suspicion for endocarditis and clinically appropriate. There is no significant valvular heart disease. Great Vessels: The aortic root is normal size. The ascending aorta is normal in size. The IVC has a measurement of 20 mm. The patient could not perform sniff test. Pericardium/ Pleura There is no pericardial effusion. MMode/2D Measurements & Calculations LVIDd: 5.4 cm RA long axis LVOT diam LVIDs: 3.2 cm LA A2 area: 21.8 cm FS: 39.5 % LA A4 area: 23.1 cm RA area AoV Opening EPSS: 0.47 cm LA length (vol): 6.2 cm IVSd: 0.66 cm LA vol: 68.8 ml : 18.3 cm Ao root diam LVPWd: 0.71 cm LA vol index RA vol : 59.5 ml asc Aorta RA Diam: 3.2 cm IVC diam: 2.0 cm : 30.0 mm2 LV rodrigues. diameter/BSA LV sys. diameter/BSA RVD1 (basal) (cm/m^2): 2.7 (cm/m^2): 1.6 Doppler Measurements & Calculations Ao V2 max MV E max jorge MV E/A: 2.3 PA V2 max : 171.7 cm/sec : 117.0 cm/sec Med Peak E' Jorge : 99.6 cm/sec Ao max PG MV A max jorge PA mean PG : 11.8 mmHg : 50.8 cm/sec E/E' med: 8.9 Ao mean PG MV P1/2t: 66.3 msec Lat Peak E' Jorge PA Accel Time : 0.12 sec LVOT Max Jorge E/E' lat: 6.0 : 123.3 cm/sec E/e' average: 7.4 KAILYN(I,D): 3.2 cm Pulm A Revs Dur sev ratio MV A dur: 0.09 sec MV dec time MV P1/2t max jorge Ao V2 mean LV V1 max PG : 0.23 sec : 113.9 cm/sec Ao V2 VTI: 25.9 cm LV V1 VTI MVA(P1/2t): 3.3 cm2 : 20.9 cm KAILYN(V,D): 2.8 cm2 PA V2 mean KAILYN indexed to BSA Pulm Chani Revs Dur - MV A : 68.9 cm/sec (cm^2/m^2): 1.6 Dur: -0.01 msec Reading Physician:RAUL
--- NOTE | 2016-10-20 16:25 | NUR ---
Temperature, MRI Cancelled Temperature - At 0826 his temperature was 35.9 C, at 1255 it was 39.[address] Piña and received an order for IV Tylenol which was given. Rechecked at 1409 which showed 37.6 C. Continuing to monitor. MRI Cancelled - He left [facility] 2005 at 1425 to get an MRI. He was given 1 mg of Morphine IV and 0.5 mg of Clonazepam PO before leaving as he was complaining of back pain and said he felt like he was beginning to withdraw. Once down there an copier field service technician called to say he was feeling claustrophobic and needed an anti-anxiety medication. Received a one time order for 1 mg of Ativan IV and it was given. Unfortunately, he was unable to lay flat due to breathing difficulty. The MRI was aborted. Notified Dr. Piña. Care continues.
--- NOTE | 2016-10-20 23:00 | NUR ---
IV Drug use conversation with pt.: Very difficult to differentiate possible withdrawal symptoms with sepsis symptoms during assessment. Pt. originally states that he had quit heroin use for "a while" prior to hospitalization, however had a one time heroin use due to pain, just hours prior to being hospitalized. Pt. diaphoretic, tremulous, tachycardic, moaning, and becoming agitated towards mother at bedside. Family left pt. bedside. Discussed difficulties in treating pt. without knowing whether pt. is withdrawing from sustained heroin use or if symptoms are related to sepsis. Encouraged pt. to be honest with staff, for appropriate medical course of care. Pt. admitted to being dishonest thus far with physicians about current drug use. Pt. admits to using heroin every day, and to using methamphetamine most days. Physician notified of findings, orders received for scheduled clonidine. Will continue to monitor.
[2016-10-20] MEDS ORDERED: Vancomycin Inj 1,750 MG in 0.9% Sodium Chloride 500 ML IV ONE (23:50)
[2016-10-20] MEDS: cloNIDine 0.1 mg Tablet PO SCH (23:59)
[2016-10-21] VITALS (7 sets, daily range): BP systolic 100–127; BP diastolic 47–80; PULSE 77–115; RESP 28–50; O2SAT 92–99
[2016-10-21] MEDS: Vancomycin Dose per Pharmacist XX SCH ×2 (00:45→08:30)
[2016-10-21] MEDS: 0.9% Sodium Chloride 1,000 ML IV SCH ×2 (02:06→13:42)
[2016-10-21] MEDS: Acetaminophen IV 1,000 MG in IV Premix 1 EACH IV PRN (04:00)
[2016-10-21 05:52] LABS: Hepatitis A Antibody IgM Negative (Negative); Hepatitis B Core Antibody IgM Negative (Negative)
--- NOTE | 2016-10-21 07:01 | PCM.CONPHA ---
Subjective Date of Service: Oct 21, 2016 Requesting Provider: GEOVANI BUNCH DO abdominal and back pain History of Present Illness sepsis/expected endocarditis and/or spinal epidural abscess Reason for Pharmacy Consult: Vancomycin Dosing Objective Vital Signs Date Time Temp Pulse Resp B/P Pulse Ox O2 Delivery O2 Flow Rate FiO2 10/21/16 05:04 37.8 10/21/16 03:58 39.5 115 28 124/75 97 Room Air 10/20/16 23:22 38.2 94 20 115/75 98 Room Air 10/20/16 20:00 105 10/20/16 19:36 37.4 108 28 113/69 96 Room Air 10/20/16 17:00 37.5 90 18 120/69 95 Room Air 10/20/16 14:09 37.6 10/20/16 12:55 39.4 96 22 116/70 98 Room Air 10/20/16 09:26 70 10/20/16 08:26 35.9 71 20 108/55 100 Room Air 10/20/16 07:40 60 Intake and Output 10/19/16 10/20/16 10/21/16 00:00 00:00 00:00 Intake Total 5512 ml Output Total 1000 ml Balance 4512 ml Weight (Kilograms): 81.000 Height (Feet): 5 Height (Inches): 10.00 Test 10/20/16 00:30 10/20/16 03:10 10/20/16 05:00 10/20/16 08:41 White Blood Count 23.8th/mm3 (3.8-10.1) Red Blood Count 5.19mil/mm3 (4.40-5.80) Hemoglobin 14.6g/dL (13.8-17.2) Hematocrit 43.6% (41.0-50.0) Mean Corpuscular Volume 84.0fL (81-100) Mean Corpuscular Hemoglobin 28.1pg (27.0-35.0) Mean Corpuscular Hemoglobin Concent 33.5% (32.0-37.0) Red Cell Distribution Width 13.1% (12.3-15.4) Platelet Count 360bil/L (150-400) Neutrophils (%) (Auto) 75.2% (40-74) Lymphocytes (%) (Auto) 14.4% (14-46) Monocytes (%) (Auto) 10.0% (4-12) Eosinophils (%) (Auto) 0% (0-5) Basophils (%) (Auto) 0.1% (0-3) Erythrocyte Sedimentation Rate 15mm/hr (0-15) Hold Purple Top Tube Received (Received) Prothrombin Time 11.9sec (8.1-12.5) Prothromb Time International Ratio 1.11ratio Activated Partial Thromboplast Time 30.6sec (22.8-33.0) Hold Blue Top Tube Received (Received) Sodium Level 131mEq/L (134-144) Potassium Level 4.4mEq/L (3.5-5.2) Chloride Level 92mEq/L (97-108) Carbon Dioxide Level 23mmol/L (18-29) Blood Urea Nitrogen 11mg/dL (6-20) Creatinine 0.74mg/dL (0.76-1.27) Estimat Glomerular Filtration Rate 138mL/min (>59) Glucose Level 108mg/dL (60-99) Calcium Level 9.1mg/dL (8.5-10.1) Phosphorus Level 3.8mg/dL (2.5-4.9) Magnesium Level 2.2mg/dL (1.6-2.6) Total Bilirubin 0.9mg/dL (0.0-1.2) Aspartate Amino Transf (AST/SGOT) 23U/L (0-50) Alanine Aminotransferase (ALT/SGPT) 24U/L (0-44) Alkaline Phosphatase 83U/L (25-150) Troponin T 0.010ug/L (0.0-0.011) Pro-B-Type Natriuretic Peptide 48.37pg/mL (0-86) Total Protein 9.2g/dL (6.4-8.4) Albumin 3.9g/dL (3.4-5.0) Lipase 17U/L (13-60) Procalcitonin 0.49ng/mL (0.00-0.08) Hold [place] Top Tube Received (Received) Hold [place] Top Tube Received (Received) Urine Color Dark yellow (YELLOW) Urine Appearance Clear (CLEAR,HAZY) Urine pH 6.5 (5.0-8.0) Urine Specific [place] 1.010 (1.003-1.035) Urine Protein Negativemg/dL (NEG,TRACE) Urine Glucose (UA) Negativemg/dL (NEGATIVE) Urine Ketones Negativemg/dL (NEGATIVE) Urine Occult Blood Negative (NEGATIVE) Urine Nitrite Negative (NEGATIVE) Urine Bilirubin Negative (NEGATIVE) Urine Urobilinogen 1.0mg/dL (NORMAL) Urine Leukocyte Esterase Negative (NEGATIVE) Urine RBC 0-2/hpf (0-2) Urine WBC 0-5/hpf (0-5) Urine Epithelial Cells Occasional/hpf (NONE-MOD) Urine Crystals None seen (NONE SEEN) Urine Bacteria Few/hpf (NONE-FEW) Urine Hyaline Casts None/lpf (NONE) Urine Granular Casts None seen (NONE SEEN) Urine Waxy Casts None seen (NONE SEEN) Urine Red Blood Cell Casts None seen (NONE SEEN) Urine White Blood Cell Casts None seen (NONE SEEN) Urine Mucus None seen (None Seen) Urine Trichomonas None seen (NONE SEEN) Urine Yeast None (NONE SEEN) Urinalysis Comment None Urine Culture Reflexed Not indicated Rapid Plasma Reagin Non reactive (Non Reactive) Hepatitis A IgM Antibody Negative (Negative) Hepatitis B Surface Antigen Negative (Negative) Hepatitis B Core IgM Antibody Negative (Negative) Hepatitis C Antibody >11.0s/co ratio Hepatitis C Antibody Comment Comment (.) Hepatitis C Comment . HIV (1&2) Ag and Ab, 4th Generation Non reactive (Non Reactive) Test 10/20/16 12:00 Lactic Acid Level 2.4mmol/L (0.4-2.0) Assessment/Plan Assessment/Plan A/ - 26 y/o male checked himself in ED early 10/20 for worsening chest and abdominal pain which suspected bacterial endocarditis and septic embolic of kidneys. 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 Last used was 7-8 hrs prior to admission. See H&P for completeness - At time of admission, WBC: 23.8, positive blood cultures - Received loading dose Vancomycin (at that time wt stated @62kg) 1.5g iv @ 0530 10/20, and no following up doses throughout the day - Reloaded Vancomycin 1.75G iv @0044 10/21 - Wt: 80.4 kg, ht: 178 cm, SCr: 0.74 mg/dL, est. clearance >150 ml/min P/ - Give Vancomycin 1.25G iv q8, starts 6 hrs from previous dose, instead of higher dose 1.5g iv q8. Trough level ordered @2200 today. Pharmacy will continue to monitor and made necessary adjustment. Thank you for consulting clinical pharmacy in the care of this patient Dane Delacruz PharmD, [facility] Clemente Delacruz Oct 21, 2016 07:01
[2016-10-21] MEDS: Vancomycin Inj 1,250 MG in 0.9% Sodium Chloride 250 ML IV SCH ×3 (08:23→23:20)
[2016-10-21] MEDS: cloNIDine 0.1 mg Tablet PO SCH ×3 (08:23→21:27)
[2016-10-21] MEDS: Ondansetron 2 mg/mL 2 mL Inj IVPUSH PRN ×2 (08:29→14:35)
[2016-10-21] MEDS: Heparin 5,000 Unit/mL Inj SUBQ SCH ×2 (08:39→17:42)
[2016-10-21] MEDS: Sodium Chloride LOK Flush 10 mL Syringe IVFLUSH SCH ×2 (08:40→17:42)
--- NOTE | 2016-10-21 09:10 | PROG NOTE ---
[address] [address] PROGRESS NOTE PATIENT: LORI BLADWIN : 1990 MR#: [id number] ADMIT: 10/20/2016 JOB ID: [id number] DATE: 10/21/2016 REASON FOR FOLLOWUP: Probable endocarditis with high-grade Staph aureus bacteremia. INTERVAL HISTORY: This morning, the patient is awake but not terribly interactive. He states that his back pain has resolved and he refuses to have the MRI scan which was a problem yesterday evening after I ordered the testing. He states he has no weakness or numbness in his arms or legs, and no bowel or bladder problems, and that his intrascapular severe pain of yesterday has completely resolved. He is continuing to have fevers, chills, bilateral pleuritic chest pain and generalized weakness. No skin rash noted. PHYSICAL EXAMINATION: Reveals a gentleman still febrile, 39.5 this morning. Pulse 115, respiratory rate 28, blood pressure 124/75, saturating well on room air. He is sleeping but easily aroused, though not terribly conversant. He is oriented. Eyes without conjunctivitis. Lungs: Decreased breath sounds due to pleuritic chest pain. No overt rales or rhonchi are heard today. Cardiac tones with a subtle right upper sternal border murmur about 1/6 that was not heard last night. Abdomen is nontender. Spine is nontender. Good strength in the lower extremities. No skin rash. LABORATORIES: Yesterday, white count 24,000. Today's creatinine 0.5. LFTs basically normal. Albumin 2.8. Rheumatoid factor is 18, and that is probably on the basis of endocarditis. RPR negative. Hepatitis C is positive. HIV is negative. All blood cultures are growing basically at this point, mostly Staph aureus, though one has gram-positive rods in it, and we await identification on those. Recall that the brain CT was negative. The abdominal CT final reading is available. It shows patchy airspace infiltrates consistent with septic emboli as well as probable bilateral pyelonephritis. The CT of the chest recall showed bilateral pulmonary nodules consistent with septic emboli and small right pleural effusion. 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 The presence of septic pulmonary emboli would suggest that he has a right-sided endocarditis, whereas the bilateral pyelonephritis might be more consistent with left. His initial echo did not show any obvious valvular abnormalities, and we are going to need a EFREN to sort this out. I had been extremely concerned last night when I saw the patient about spinal epidural abscess or vertebral osteo, but the patient was unable to comply with the MRI scan even after being given benzodiazepines and, this morning, tells me he just will not do it. He also states that this morning his back pain is gone and he denies neurologic symptoms. I failed to note in my physical but he has excellent strength in his extremities this morning. RECOMMENDATIONS: 1. Will continue with vancomycin. 2. The patient will need a EFREN, which will need to be arranged with Cardiology. 3. Will need hep C viral load and genotype. 4. A MRSA screen of the nares will be done for completeness. 5. Should his back pain get worse, will need to get a CT scan with contrast of the back, which is not as good as an MRI for spinal epidural abscess, but apparently will be the best we can do. At this point, we can just hold off on any more spinous imaging. MTDD
--- NOTE | 2016-10-21 09:11 | NUR ---
Social Work note - Initial Assessment Graeme Petersen is a 26 yr old who was admitted for sepsis - Septic Emboli. EMR reviewed: Pt has [employer] insurance, he does not have a PCP. Readmit score is 2. Pt does not have Advanced Directives - MULTIPLE COIL WINDER provided paperowork. MULTIPLE COIL WINDER met with pt - introduced d/c planning and explained SW role. Pt live with his family in [place]. He is independent at baseline, can return to home at d/c. Pt has hx of IV drug use - Meth and heroin. Pt has presented in ED in September in active withdrawal - He was given RX for Suboxone but states he did not follow up with [facility] or with [facility]. He is willing to have Substance Use Assessment with [place] today - MULTIPLE COIL WINDER witnessed signature of MAME and placed signed paperwork on the chart. MULTIPLE COIL WINDER left message with Laine - [facility] [place]. Pt denies any other needs. MULTIPLE COIL WINDER will follow if needs arise. TAR HEATER will follow up with PCP appointment. Plan: Home with family in [place] - Pt will be seen by Laine from [facility] [place] for bedside CD assessment. ESHA Gimenez
[2016-10-21 11:09] LABS: Mean Corpuscular Hemoglobin 27.7 pg (27.0-35.0); Mean Corpuscular Volume 83.7 fL (81-100)
--- NOTE | 2016-10-21 11:22 | NUR ---
Scheduled establishment appointment for 12/03/16 check in at 1415 for 1430 appointment with . Will also schedule hospital follow up when discharge date is more concrete. Updated PRODUCTION ARTIST
--- NOTE | 2016-10-21 13:38 | PCM.PNMED ---
Subjective Date of Service Oct 21, 2016 Subjective History anxious thinking exhibiting some opiate withdrawal symptoms this morning. No hallucinations. The patient was then given Klonopin and Percocet as well as morphine and now is quite sedated. R lessen subjective not obtainable. Exam Vital Signs Vital Sign - Last Date Time Temp Pulse Resp B/P Pulse Ox O2 Delivery O2 Flow Rate FiO2 10/21/16 11:02 96 10/21/16 08:31 37.2 30 127/80 99 Room Air Intake and Output 10/20/16 10/20/16 10/21/16 Cumulative From/Thru 15:00 23:00 07:00 10/20/16 00:16 - 10/21/16 06:14 Intake Total 1790 ml 2075 ml 7587 ml Output Total 500 ml 1500 ml 2500 ml Balance 1290 ml 575 ml 5087 ml Intake Oral 236 ml 200 ml 436 ml IV Total 1554 ml 1875 ml 7151 ml Output Urine Total 500 ml 1500 ml 2500 ml # Voids 4 5 Exam Patient is calm and resting comfortably. Lungs are clear with normal effort and rate. Heart is regular without murmur gallop or rub. Abdomen is soft nontender. Extremities are free of significant pedal pulses Arms and neck both the stigmata of IVDU. Skin is otherwise free of rash or lesions. IVs and Medications Medications Reviewed: Medications were reviewed in detail Lab and Diagnostics Result Diagram: 10/21/16 1100 10/21/16 0655 X-Rays, CTs and MRIs CT scan of the brain negative for intracranial process, CT scan of abdomen and pelvis showed septic emboli to kidneys bilaterally, CT angio of chest showed multiple septic emboli to lungs bilaterally, no over vegetations of heart valves noted on CT chest 12-lead ECG ECG Interpretation: Sinus tachycardia rate 114 Time: 01:12 Interpreted by: ED physician Assessment & Plan Patient is a 26 y.o. M with past medical history of IVDU heroin and methamphetamine, needle sharing, three previous OD on heroin, last heroine use 7 -8 hours prior to ED admission, last meth use yesterday, admitted to ED for worsening chest and abdominal pain. Admitted for treatment of sub acute bacterial endocartitis due to IVDU, sepsis with septic emboli to lungs and kidneys. 1. Subacute Bacterial endocartitis secondary to IVDU - Patient has history of IVDU heroin and methamphetamine, multiple septic emboli noted on CT of lungs and kidneys, indicative of right and left sided heart valve involvement - Roland criteria + 3 minor criteria: fever, septic emboli on CT, IVDU - IV Vancomycin ordered dosed per pharmacy - Continue IV fluid resuscitation NS @ 125 mls/hr - TTE - Percocet 5 mg Q6 hours for pain - Infectious disease consult placed - Rheumatoid factor ordered, pending - Blood cultures, procalcitonin, lactic acid ordered as below - Continue to monitor We will place him in isolation in contact isolation awaiting cultures and continue vancomycin. Patient's disease is following. No change to medical management for now. His cultures are growing out gram-positive cocci consistent with staph. Sensitivities to follow. 2. Sepsis, acute. POA. Sources endocarditis. Patient also has septic pulmonary emboli and possibly pyelonephritis. - Likely source of infection SBE, r/o UTI, pyelonephritis, aspiration pneumonia , STI/STD - WCT 23, lactic acid 1.6 - CT scan chest, abdomen/pelvis show - Blood culture x2 ordered, pending - Procalcitonin ordered, 0.49 - Continue to monitor We will continue the current antibiotic plan. 3. Urinary retention - Likely due to septic emboli to kidneys vs UTI vs STD/STI - Place Ford cath - Bladder scan ordered - UA and culture ordered - G/C urine ordered UA is dip negative. Will follow clinically. Attempt to discontinue Ford in the next 1 or 2 days. 4. IVDU heroin and methamphetamine - Prior overdoses x 3, - Clonazepam 0.5 PRN for signs of withdrawal - Continue to monitor He is currently being given morphine for pain control. He appears to be having mild to moderate opiate withdrawal syndrome. This point we will place him on methadone 10 mg by mouth 3 times a day and then orchestrate a slow taper over the next week. 5. High risk behavior - IVDU, needle sharing, never screened for HIV, Hepatitis, STD/STI - HIV 1/2 screen ordered (negative) - Hepatitis panel ordered (hep C antibody positive with PCR pending) - G/C screen urine ordered CODE STATUS: FULL CODE DVT prophylaxis: Sub Q heparin Patient is admitted under inpatient status with expected length of stay greater than 2 midnights due to severity of presenting symptoms, risk of adverse event, and complexity of treatment plan. Pain Evaluation: Adequate Pain Control VTE Prophylaxis: Sub-Q Heparin (Unfractionated) Resuscitation Status: CPR: Attempt Resuscitation Time spent 30 minute Froy Piña MD Oct 21, 2016 13:38
[2016-10-21] MEDS: oxyCODONE-Acetamin 5-325 mg Tablet PO PRN (18:43)
--- NOTE | 2016-10-21 19:23 | NUR ---
Withdrawal Pt A&O. Able to make needs known. Does not always understand medically what is going on, extra education is helpful. No c/o chest pain. C/O painful breathing, worse when trying to speak. Tachypneic between 30-50 throughout day. Diaphoretic at times. C/O bilateral flank pain. Sometimes 10/10 pain today. Received IV morphine, methadone, and percocet for pain. Received IV zofran for nausea. No BM since before admit. Appetite good. No issues with swallowing. Voiding normally into urinal. Yellow color. Pt ambulates independently to the bathroom and back with no issues. Pt currently resting and states he is feeling "better" but not sure about a pain scale. Family at the bedside.
[2016-10-21] MEDS ORDERED: Vancomycin Serum Trough XX ONE (22:00)
[2016-10-21] MEDS ORDERED: Vancomycin Inj 750 MG in 0.9% Sodium Chloride 250 ML IV ONE (23:20)
--- NOTE | 2016-10-21 23:27 | PCM.PHAPRO ---
Progress Date of Service: Oct 21, 2016 abdominal and back pain Vanco per Rx Trough is subtherapeutic, at 4.5 Reload with 2000mg then increase dosage to 1500mg q8h Next trough @ 2029 on 10/22 Alexis Morales PharmD Oct 21, 2016 23:27
[2016-10-22] VITALS (8 sets, daily range): BP systolic 103–149; BP diastolic 54–78; PULSE 56–95; RESP 24–32; O2SAT 92–96
[2016-10-22] MEDS: Sodium Chloride LOK Flush 10 mL Syringe IVFLUSH SCH ×3 (01:32→16:30)
[2016-10-22] MEDS: Heparin 5,000 Unit/mL Inj SUBQ SCH ×3 (01:39→16:35)
[2016-10-22 03:00] LABS: Mean Corpuscular Hemoglobin 28.1 pg (27.0-35.0); Mean Corpuscular Volume 84.9 fL (81-100)
[2016-10-22] MEDS: 0.9% Sodium Chloride 1,000 ML IV SCH ×4 (03:03→18:11)
[2016-10-22] MEDS ORDERED: Vancomycin Inj 1,500 MG in 0.9% Sodium Chloride 500 ML IV SCH (05:00)
[2016-10-22] MEDS: oxyCODONE-Acetamin 5-325 mg Tablet PO PRN ×3 (05:22→19:44)
--- NOTE | 2016-10-22 05:32 | NUR ---
Febrile: P: Last night, pt was febrile with a TMAX of 39.6. I: Dr. Bhatt was made aware of pt's temperature at 39.0 and Tylenol order was received at that time. Pt temperature continued to rise to 39.6 after Tylenol and pt's groin and B axillaries were packed with ice packs. E: Pt's temperature broke this am. Pt afebrile at 36.9. Will cont. to monitor and update oncoming staff. Pharmacy adjusting Vancomycin dosing.
[2016-10-22] MEDS: cloNIDine 0.1 mg Tablet PO SCH ×3 (07:48→19:44)
[2016-10-22] MEDS: Vancomycin Dose per Pharmacist XX SCH (08:30)
[2016-10-22] MEDS ORDERED: Vancomycin Serum Trough XX ONE ×3 (09:00→20:30)
[2016-10-22] MEDS ORDERED: Ceftaroline Inj 600 MG in Dextrose 5% 250 ML IV SCH (09:55)
--- NOTE | 2016-10-22 10:33 | PROG NOTE ---
[address] [address] PROGRESS NOTE PATIENT: LORI BALDWIN : 1990 MR#: [id number] ADMIT: 10/20/2016 JOB ID: [id number] DATE: 10/22/2016 INFECTIOUS DISEASE FOLLOW UP NOTE: REASON FOR FOLLOWUP: High-grade MRSA bacteremia in an IV drug user. INTERVAL HISTORY: The patient reports that he is continuing to have fevers, chills and severe pain basically throughout his body. He notes especially severe pain on the right chest when he inspires deeply as well as diffusely through his back. He also reports myalgias, arthralgias, fevers, chills, some shortness of breath and nausea. PHYSICAL EXAMINATION: Reveals a very ill young gentleman lying supine in his hospital bed. His temperature is 39.6 at 2 a.m. It is now 37. Respiratory rate in the low 20s, blood pressure 104/58. He is saturating 93% on room air. The patient grunts and moans a great deal and it is difficult to extract a history from him because of his discomfort. His eyes are without conjunctival hemorrhages. His oral cavity is negative. Neck: Supple. There is diffuse tenderness along the spine which remains a concern. He has decreased breath sounds at the right base largely due to splinting it would seem. A few crackles are also heard. Cardiac tones with soft systolic murmur at the right upper sternal border. The abdomen is relatively benign though he guards when his abdomen is examined. He has excellent strength and sensation in his lower extremities. LABORATORIES: Include a white count which is slightly decreased to 19,000 today. Creatinine 0.68. LFTs are normal. Albumin 2.5. His vanco level is shockingly low at 4.5. That was done late last night and his dose has been increased. Rheumatoid factor positive. Hep C positive with genotype and viral load pending. HIV negative. Multiple blood cultures on the are growing MRSA. A single blood culture has grown a bacillus species, non anthrax, which I suspect is a contaminant as we have only isolated it once. I have asked the lab to check dapto and ceftaroline susceptibility to the MRSA as we are having great difficulty managing his vanco levels. Recall that the patient's CT scans of the chest showed pulmonary nodules which we carefully reviewed previously. His abdominal CT shows what appears to be bilateral pyelonephritis. The transthoracic echo did not show vegetations and we are waiting on a transesophageal echo. IMPRESSION: This is a very worrisome case of a young man who is an IV drug user who presents with a high-grade MRSA bacteremia. The CT scan of the chest looks like septic pulmonary emboli and he has a lot of pleuritic chest pain that would go along with that diagnosis. Additionally he appears to have bilateral pyelonephritis and I suspect this is related to embolization as well. Despite what seemed to be a reasonable vanco dose with some very low levels, I have discussed this this morning in person with the pharmacist. I remain very concerned about the patient's back pain and ordinarily I would have already obtained an MRI scan of the back but the patient has told me and others that he will not accept a MRI scan of his back. At this point, he has excellent strength, sensation and normal bowel and bladder function so hopefully he does not have a spinal epidural abscess but our main imaging modality is not an option at this point. RECOMMENDATIONS: 1. Will continue with vanco but I have impressed upon the pharmacist the urgent need to raise him to more reasonable levels. 2. I am going to go ahead and add ceftaroline in maximal doses while we await optimization of the vanco doses. 3. We await his hepatitis C studies. 4. I have talked to the nurses in detail as well as the physicians caring for the patient. If he develops any heaviness in his legs, leg weakness, leg numbness, saddle anesthesia or bowel or bladder problems, we will need to proceed with a CT scan at least with contrast of the back and consider then urgent neurosurgical consultation. 5. We await the transesophageal echo.
[2016-10-22] MEDS: Vancomycin Inj 2,000 MG in 0.9% Sodium Chloride 500 ML IV SCH ×3 (12:04→22:24)
--- NOTE | 2016-10-22 12:06 | PCM.PNMED ---
Subjective Date of Service Oct 22, 2016 Subjective Patient still complaining of pleuritic chest pain. Exam Vital Signs Vital Sign - Last Date Time Temp Pulse Resp B/P Pulse Ox O2 Delivery O2 Flow Rate FiO2 10/22/16 08:31 37.0 84 26 104/58 93 Room Air Intake and Output 10/21/16 10/21/16 10/22/16 Cumulative From/Thru 15:00 23:00 07:00 10/20/16 00:16 - 10/22/16 06:25 Intake Total 2282 ml 2642 ml 05269 ml Output Total 1775 ml 725 ml 5000 ml Balance 507 ml 1917 ml 7511 ml Intake Oral 800 ml 1114 ml 2350 ml IV Total 1482 ml 1528 ml 70321 ml Output Urine Total 1775 ml 725 ml 5000 ml # Voids 5 # Bowel Movements 0 0 0 Exam Constitutional: Young male who appears to be in some pain distress Head: Normocephalic atraumatic Chest: Difficult to auscultate given the patient's moaning but appears to be clear Cor: Regular rate and rhythm S1-S2 Abdomen: Soft mild diffuse tenderness no rebound no guarding bowel sounds are present Extremities: No pedal edema Neuro alert and oriented 3, motor strength is intact bilaterally Lab and Diagnostics Laboratory Tests 72 Hours Test 10/20/16 00:30 10/20/16 03:10 10/20/16 05:00 10/20/16 08:41 White Blood Count 23.8th/mm3 (3.8-10.1) Red Blood Count 5.19mil/mm3 (4.40-5.80) Hemoglobin 14.6g/dL (13.8-17.2) Hematocrit 43.6% (41.0-50.0) Mean Corpuscular Volume 84.0fL (81-100) Mean Corpuscular Hemoglobin 28.1pg (27.0-35.0) Mean Corpuscular Hemoglobin Concent 33.5% (32.0-37.0) Red Cell Distribution Width 13.1% (12.3-15.4) Platelet Count 360bil/L (150-400) Neutrophils (%) (Auto) 75.2% (40-74) Lymphocytes (%) (Auto) 14.4% (14-46) Monocytes (%) (Auto) 10.0% (4-12) Eosinophils (%) (Auto) 0% (0-5) Basophils (%) (Auto) 0.1% (0-3) Erythrocyte Sedimentation Rate 15mm/hr (0-15) Hold Purple Top Tube Received (Received) Prothrombin Time 11.9sec (8.1-12.5) Prothromb Time International Ratio 1.11ratio Activated Partial Thromboplast Time 30.6sec (22.8-33.0) Hold Blue Top Tube Received (Received) Sodium Level 131mEq/L (134-144) Potassium Level 4.4mEq/L (3.5-5.2) Chloride Level 92mEq/L (97-108) Carbon Dioxide Level 23mmol/L (18-29) Blood Urea Nitrogen 11mg/dL (6-20) Creatinine 0.74mg/dL (0.76-1.27) Estimat Glomerular Filtration Rate 138mL/min (>59) Glucose Level 108mg/dL (60-99) Lactic Acid Level 1.6mmol/L (0.4-2.0) 0.6mmol/L (0.4-2.0) 0.9mmol/L (0.4-2.0) Calcium Level 9.1mg/dL (8.5-10.1) Phosphorus Level 3.8mg/dL (2.5-4.9) Magnesium Level 2.2mg/dL (1.6-2.6) Total Bilirubin 0.9mg/dL (0.0-1.2) Aspartate Amino Transf (AST/SGOT) 23U/L (0-50) Alanine Aminotransferase (ALT/SGPT) 24U/L (0-44) Alkaline Phosphatase 83U/L (25-150) Troponin T 0.010ug/L (0.0-0.011) Pro-B-Type Natriuretic Peptide 48.37pg/mL (0-86) Total Protein 9.2g/dL (6.4-8.4) Albumin 3.9g/dL (3.4-5.0) Lipase 17U/L (13-60) Procalcitonin 0.49ng/mL (0.00-0.08) Hold [place] Top Tube Received (Received) Hold [place]ínez Top Tube Received (Received) Received (Received) Urine Color Dark yellow (YELLOW) Urine Appearance Clear (CLEAR,HAZY) Urine pH 6.5 (5.0-8.0) Urine Specific [place] 1.010 (1.003-1.035) Urine Protein Negativemg/dL (NEG,TRACE) Urine Glucose (UA) Negativemg/dL (NEGATIVE) Urine Ketones Negativemg/dL (NEGATIVE) Urine Occult Blood Negative (NEGATIVE) Urine Nitrite Negative (NEGATIVE) Urine Bilirubin Negative (NEGATIVE) Urine Urobilinogen 1.0mg/dL (NORMAL) Urine Leukocyte Esterase Negative (NEGATIVE) Urine RBC 0-2/hpf (0-2) Urine WBC 0-5/hpf (0-5) Urine Epithelial Cells Occasional/hpf (NONE-MOD) Urine Crystals None seen (NONE SEEN) Urine Bacteria Few/hpf (NONE-FEW) Urine Hyaline Casts None/lpf (NONE) Urine Granular Casts None seen (NONE SEEN) Urine Waxy Casts None seen (NONE SEEN) Urine Red Blood Cell Casts None seen (NONE SEEN) Urine White Blood Cell Casts None seen (NONE SEEN) Urine Mucus None seen (None Seen) Urine Trichomonas None seen (NONE SEEN) Urine Yeast None (NONE SEEN) Urinalysis Comment None Urine Culture Reflexed Not indicated Chlamydia trachomatis DNA (LELO) Negative (Negative) Neisseria gonorrhoeae DNA (LELO) Negative (Negative) Rheumatoid Factor 18.0IU/mL (0.0-13.9) Rapid Plasma Reagin Non reactive (Non Reactive) Hepatitis A IgM Antibody Negative (Negative) Hepatitis B Surface Antigen Negative (Negative) Hepatitis B Core IgM Antibody Negative (Negative) Hepatitis C Antibody >11.0s/co ratio Hepatitis C Antibody Comment Comment (.) Hepatitis C Comment . HIV (1&2) Ag and Ab, 4th Generation Non reactive (Non Reactive) Test 10/20/16 12:00 10/21/16 06:55 10/21/16 11:00 10/21/16 22:09 Lactic Acid Level 2.4mmol/L (0.4-2.0) 0.7mmol/L (0.4-2.0) Sodium Level 136mEq/L (134-144) Potassium Level 4.3mEq/L (3.5-5.2) Chloride Level 101mEq/L (97-108) Carbon Dioxide Level 20mmol/L (18-29) Blood Urea Nitrogen 7mg/dL (6-20) Creatinine 0.52mg/dL (0.76-1.27) Estimat Glomerular Filtration Rate 208mL/min (>59) Glucose Level 121mg/dL (60-99) Calcium Level 7.5mg/dL (8.5-10.1) Total Bilirubin 0.3mg/dL (0.0-1.2) Aspartate Amino Transf (AST/SGOT) 9U/L (0-50) Alanine Aminotransferase (ALT/SGPT) 10U/L (0-44) Alkaline Phosphatase 73U/L (25-150) Total Protein 6.2g/dL (6.4-8.4) Albumin 2.8g/dL (3.4-5.0) White Blood Count 23.3th/mm3 (3.8-10.1) Red Blood Count 4.05mil/mm3 (4.40-5.80) Hemoglobin 11.2g/dL (13.8-17.2) Hematocrit 33.9% (41.0-50.0) Mean Corpuscular Volume 83.7fL (81-100) Mean Corpuscular Hemoglobin 27.7pg (27.0-35.0) Mean Corpuscular Hemoglobin Concent 33.0% (32.0-37.0) Red Cell Distribution Width 12.6% (12.3-15.4) Platelet Count 313bil/L (150-400) Vancomycin Level Trough 4.5mcg/mL Test 10/22/16 00:07 10/22/16 02:45 White Blood Count 19.1th/mm3 (3.8-10.1) Red Blood Count 3.70mil/mm3 (4.40-5.80) Hemoglobin 10.4g/dL (13.8-17.2) Hematocrit 31.4% (41.0-50.0) Mean Corpuscular Volume 84.9fL (81-100) Mean Corpuscular Hemoglobin 28.1pg (27.0-35.0) Mean Corpuscular Hemoglobin Concent 33.1% (32.0-37.0) Red Cell Distribution Width 12.9% (12.3-15.4) Platelet Count 313bil/L (150-400) Sodium Level 135mEq/L (134-144) Potassium Level 3.9mEq/L (3.5-5.2) Chloride Level 103mEq/L (97-108) Carbon Dioxide Level 20mmol/L (18-29) Blood Urea Nitrogen 8mg/dL (6-20) Creatinine 0.68mg/dL (0.76-1.27) Estimat Glomerular Filtration Rate 152mL/min (>59) Glucose Level 132mg/dL (60-99) Calcium Level 7.4mg/dL (8.5-10.1) Total Bilirubin 0.3mg/dL (0.0-1.2) Aspartate Amino Transf (AST/SGOT) 10U/L (0-50) Alanine Aminotransferase (ALT/SGPT) 10U/L (0-44) Alkaline Phosphatase 56U/L (25-150) Total Protein 5.6g/dL (6.4-8.4) Albumin 2.5g/dL (3.4-5.0) Result Diagram: 10/22/165 10/22/165 X-Rays, CTs and MRIs CT scan of the brain negative for intracranial process, CT scan of abdomen and pelvis showed septic emboli to kidneys bilaterally, CT angio of chest showed multiple septic emboli to lungs bilaterally, no over vegetations of heart valves noted on CT chest 12-lead ECG ECG Interpretation: Sinus tachycardia rate 114 Time: 01:12 Interpreted by: ED physician Cardiac Echo Impressions Echocardiogram Report Name: LORI BALDWIN Study Date: 10/20/2016 Height: 70 in Hospital Exam Location: [facility] Weight: 177 lb Gender: Male BSA: 2.0 m2 : 1990 Age: 26 yrs BP: 106/59 mmHg Reason For Study: Endocarditis History: IVDA, SMOKER Ordering Physician: [facility] Interpretation Summary The left ventricle is normal in size, wall thickness, and systolic function without any focal wall motion abnormalities. The ejection fraction is estimated to be 60-65%. The right ventricle is normal in size and function. The left atrium is mildly dilated. Right atrial size is normal. There is no obvious valvular vegetation identified on this exam. Consider EFREN if there is a high degree of clinical suspicion for endocarditis and clinically appropriate. There is no significant valvular heart disease. The aortic root is normal size. Procedure: A two-dimensional transthoracic echocardiogram with color flow and Doppler was performed. The study quality was technically adequate. There is no prior echocardiogram noted for this patient. The patient was in normal sinus rhythm during the exam. Left Ventricle: The left ventricle is normal in size, wall thickness, and systolic function without any focal wall motion abnormalities. A false chord is noted (normal variant). The ejection fraction is estimated to be 60-65%. The transmitral spectral Doppler flow pattern is normal for age. Right Ventricle: The right ventricle is normal in size and function. Atria: The left atrium is mildly dilated. Right atrial size is normal. There is no Doppler evidence for an interatrial shunt. Mitral Valve: The mitral valve is normal in structure and function. There is trace mitral regurgitation. Aortic Valve: The aortic valve is normal in structure and function. No aortic regurgitation is present. Tricuspid Valve: The tricuspid valve is normal in structure and function. Pulmonary artery pressures cannot be estimated because of the lack of a measurable TR jet velocity. Pulmonic Valve: The pulmonic valve is normal in structure and function. There is no pulmonic valvular regurgitation. There is no obvious valvular vegetation identified on this exam. Consider EFREN if there is a high degree of clinical suspicion for endocarditis and clinically appropriate. There is no significant valvular heart disease. Great Vessels: The aortic root is normal size. The ascending aorta is normal in size. The IVC has a measurement of 20 mm. The patient could not perform sniff test. Pericardium/ Pleura There is no pericardial effusion. MMode/2D Measurements & Calculations LVIDd: 5.4 cm RA long axis LVOT diam LVIDs: 3.2 cm LA A2 area: 21.8 cm FS: 39.5 % LA A4 area: 23.1 cm RA area AoV Opening EPSS: 0.47 cm LA length (vol): 6.2 cm IVSd: 0.66 cm LA vol: 68.8 ml : 18.3 cm Ao root diam LVPWd: 0.71 cm LA vol index RA vol : 59.5 ml asc Aorta RA Diam: 3.2 cm IVC diam: 2.0 cm : 30.0 mm2 LV rodrigues. diameter/BSA LV sys. diameter/BSA RVD1 (basal) (cm/m^2): 2.7 (cm/m^2): 1.6 Doppler Measurements & Calculations Ao V2 max MV E max jorge MV E/A: 2.3 PA V2 max : 171.7 cm/sec : 117.0 cm/sec Med Peak E' Jorge : 99.6 cm/sec Ao max PG MV A max jorge PA mean PG : 11.8 mmHg : 50.8 cm/sec E/E' med: 8.9 Ao mean PG MV P1/2t: 66.3 msec Lat Peak E' Jorge PA Accel Time : 0.12 sec LVOT Max Jorge E/E' lat: 6.0 : 123.3 cm/sec E/e' average: 7.4 KAILYN(I,D): 3.2 cm Pulm A Revs Dur sev ratio MV A dur: 0.09 sec MV dec time MV P1/2t max jorge Ao V2 mean LV V1 max PG : 0.23 sec : 113.9 cm/sec Ao V2 VTI: 25.9 cm LV V1 VTI MVA(P1/2t): 3.3 cm2 : 20.9 cm KAILYN(V,D): 2.8 cm2 PA V2 mean KAILYN indexed to BSA Pulm A Revs Dur - MV A : 68.9 cm/sec (cm^2/m^2): 1.6 Dur: -0.01 msec Reading Physician:PM Assessment & Plan Patient is a 26 y.o. M with past medical history of IVDU heroin and methamphetamine, needle sharing, three previous OD on heroin, last heroine use 7 -8 hours prior to ED admission, last meth use yesterday, admitted to ED for worsening chest and abdominal pain. Admitted for treatment of sub acute bacterial endocartitis due to IVDU, sepsis with septic emboli to lungs and kidneys. 1. Subacute Bacterial endocartitis secondary to IVDU - Patient has history of IVDU heroin and methamphetamine, multiple septic emboli noted on CT of lungs and kidneys, indicative of right and left sided heart valve involvement - Roland criteria + 3 minor criteria: fever, septic emboli on CT, IVDU - IV Vancomycin ordered dosed per pharmacy - Continue IV fluid resuscitation NS @ 125 mls/hr - TTE done as noted above. Have put a phone call in to cardiology to arrange for EFREN to further investigate - Percocet 5 mg Q6 hours for pain - Infectious disease consult appreciated -Blood cultures are growing MRSA and will continue with contact and droplet precautions 2. Sepsis, acute. POA. Sources endocarditis. Patient also has septic pulmonary emboli and possibly pyelonephritis. - Likely source of infection SBE, r/o UTI, pyelonephritis, aspiration pneumonia , STI/STD - WCT 23, lactic acid 1.6 - CT scan chest, abdomen/pelvis show multiple areas of emboli - Procalcitonin ordered, 0.49 - Continue with IV vancomycin with pharmacy to monitor 3. Urinary retention - Likely due to septic emboli to kidneys vs UTI vs STD/STI - Place Ford cath - Bladder scan ordered - UA and culture ordered - G/C urine ordered UA is dip negative. Will follow clinically. Attempt to discontinue Ford in the next 1 or 2 days. 4. IVDU heroin and methamphetamine - Prior overdoses x 3, - Clonazepam 0.5 PRN for signs of withdrawal -Patient currently on scheduled methadone and clonidine with IV Ativan and IV morphine when necessary pain This point we will place him on methadone 10 mg by mouth 3 times a day and then orchestrate a slow taper over the next week. 5. High risk behavior - IVDU, needle sharing, never screened for HIV, Hepatitis, STD/STI - HIV 1/2 screen ordered (negative) - Hepatitis panel ordered (hep C antibody positive with PCR pending) - G/C screen urine ordered CODE STATUS: FULL CODE DVT prophylaxis: Sub Q heparin Patient is admitted under inpatient status with expected length of stay greater than 2 midnights due to severity of presenting symptoms, risk of adverse event, and complexity of treatment plan. VTE Prophylaxis: Sub-Q Heparin (Unfractionated) Resuscitation Status: CPR: Attempt Resuscitation Time spent 30 minutes Kait Lake MD Oct 22, 2016 12:06
--- NOTE | 2016-10-22 13:00 | NUR ---
Transfer Pt transferred up to [facility] around 1300. Gave report to receiving RN.
--- NOTE | 2016-10-22 13:03 | NUR ---
transfer pt transfer up from [facility]. pt has NS and Vanco running. pt states that it is painful to breathe, this RN will medicate for pain. pt's friend is at bedside helping pt eat his lunch. pt requests more jello/pudding because it makes some of the breathing pain go away.
--- NOTE | 2016-10-22 14:49 | NUR ---
visitor concerns pt has his brother and Aunt in the room. Security walked up with pt's friend who appeared to be what they thought was under the influence. [facility] charge nurse let the pt and visitors know the concerns and made them aware that if drug use is suspected they will not be allowed to visit. Housekeeping called and asked to remove the sharps, security will lock closet.
--- NOTE | 2016-10-22 14:50 | NUR ---
Behaviors Patient's brother found on 2nd floor lobby where coffee is located. Per security office behaviors are erratic and he appears to be confused. Brother is now in room. Eyes are blood shot and unable maintain eye contact. This RN informed all persons in room as well as patient (with patient's consent) hospital policies which included behavior contracts. Patient himself continues to keep eyes closed and mumbles answers. Patient does agree to having all belongings locked in closet. Sharps container removed for safety. Frequent rounding.
--- NOTE | 2016-10-22 18:16 | NUR ---
pain pt is yelling/moaning in pain. States that the pain is everywhere and is a 10/10. 2mg morphine given IV.
[2016-10-22] MEDS: Ceftaroline Inj 600 MG in Dextrose 5% 250 ML IV SCH (18:55)
[2016-10-23] VITALS (15 sets, daily range): BP systolic 101–114; BP diastolic 52–70; PULSE 68–102; RESP 20–24; O2SAT 91–96
[2016-10-23] MEDS: Heparin 5,000 Unit/mL Inj SUBQ SCH ×3 (00:24→16:31)
[2016-10-23] MEDS: Sodium Chloride LOK Flush 10 mL Syringe IVFLUSH SCH ×3 (00:27→16:30)
[2016-10-23] MEDS: Ceftaroline Inj 600 MG in Dextrose 5% 250 ML IV SCH ×3 (02:38→17:56)
[2016-10-23] MEDS: Vancomycin Inj 2,000 MG in 0.9% Sodium Chloride 500 ML IV SCH ×2 (04:01→10:00)
--- NOTE | 2016-10-23 04:09 | NUR ---
Febrile 38.7 at shift start administered 650mg Tylenol = 36.2 deg. Celsius @00:38
[2016-10-23] MEDS: cloNIDine 0.1 mg Tablet PO SCH ×3 (08:15→20:30)
[2016-10-23] MEDS: 0.9% Sodium Chloride 1,000 ML IV SCH ×2 (08:16→16:39)
[2016-10-23] MEDS ORDERED: Propofol 10,000 mCg/mL 20 mL Inj ONE (09:25)
[2016-10-23] MEDS ORDERED: Ketamine 10 mg/mL 20 mL Inj ONE (09:25)
[2016-10-23] MEDS: Vancomycin Dose per Pharmacist XX SCH (09:52)
--- NOTE | 2016-10-23 10:57 | NUR ---
Vince withheld Vancomycin withheld trough critical 26.7, pharmacy/MD notified
[2016-10-23] MEDS: Vancomycin Inj 1,750 MG in 0.9% Sodium Chloride 500 ML IV SCH ×2 (12:27→20:26)
[2016-10-23] MEDS: oxyCODONE-Acetamin 5-325 mg Tablet PO PRN ×2 (12:38→20:30)
[2016-10-23 13:51] LABS: Mean Corpuscular Hemoglobin 27.3 pg (27.0-35.0); Mean Corpuscular Volume 85.2 fL (81-100)
[2016-10-23] MEDS ORDERED: Ondansetron 2 mg/mL 2 mL Inj IVPUSH PRN (13:55)
[2016-10-23] MEDS ORDERED: HYDROmorphone 1 mg/mL Inj IVPUSH PRN (13:55)
[2016-10-23] MEDS ORDERED: MetoCLOpramide 5 mg/mL 2 mL Inj IVPUSH PRN (13:55)
[2016-10-23] MEDS ORDERED: EPHEDrine Sulfate 50 mg/mL Inj IVPUSH PRN (13:55)
[2016-10-23] MEDS ORDERED: Phenylephrine 10,000 mCg/mL Inj IVPUSH PRN (13:55)
[2016-10-23] MEDS ORDERED: Dexamethasone 4 mg/mL Inj IVPUSH PRN (13:55)
[2016-10-23] MEDS ORDERED: Lactated Ringer's 500 ML IV PRN (13:55)
[2016-10-23] MEDS ORDERED: Lactated Ringer's 1,000 ML IV SCH (13:55)
[2016-10-23] MEDS ORDERED: fentaNYL-PF 50 mCg/mL 2 mL Inj IVPUSH PRN (13:55)
--- NOTE | 2016-10-23 13:55 | PCM.HPANE ---
Patient Data Surgeon Admitting Provider:Luna Ramirez DO Attending Provider:Luna Ramirez DO Primary Care Physician:Nopcp Other Provider: Reason for Visit Sepsis,Sbe, Septic Emboli Ht/WT & BMI Height (Feet): 5 Height (Inches): 10.00 Weight (Kilograms): 81.000 Body Mass Index 25.56 Allergies Coded Allergies: No Known Allergies (Verified Allergy, Unknown, 12/10/14) Past Anesthesia History Anesthesia History: Denies:: Abnormal Airway, Anesthesia Reactions, Difficult Intubation Diabetes History Hx Diabetes?: No MRSA MRSA: No Medications Hypertension Medication: No Home Meds Incl Beta Aminah: No Discontinued Scripts Naloxone HCl (Narcan)4 Mg/Actuation Spray4 Mg NS ONCE #1 SPRAY Give 1 dose under the skin or into the muscle for narcotic overdose Prov:Cheo Alvarez MD 09/27/16 Naloxone HCl 1 Mg/1 Ml Syringe1 Mg IJ ONCE #1 SYR Give 1 dose under the skin or into the muscle for narcotic overdose Prov:Cheo Alvarez MD 09/27/16 Buprenorphine HCl/Naloxone HCl (Suboxone 8 mg-2 mg Sl Film)1 Each Film2 Each SL DAILY #10 FILM Ref 0 Prov:Cheo Alvarez MD 09/27/16 hydrOXYzine Hcl (HydrOXYzine Hcl)25 Mg [id number] Mg PO QID PRN For Itching # 20 TABLET Ref 0 Prov:Cheo Alvarez MD 05/09/16 Sulfamethoxazole/Trimeth 800-160 mg (Bactrim DS)1 Each Tablet1 Tablet PO BID # 20 TABLET Prov:Cheo Alvarez MD 05/09/16 Hydrocodone-Acetaminophen 5-325 mg 1 Each Tablet1 Tablet PO QID PRN For Pain # 12 TABLET Ref 0 Prov:Terry Garsia PAC 04/19/16 Penicillin V Potassium 500 Mg [id number] Mg PO TID #21 TABLET Ref 0 Prov:Terry Garsia PAC 04/19/16 History History of ENT Problems?: No HEENT History: Denies:: Abnormal Airway Difficult Intubation Hx of Heart Problems?: Yes Cardiovascular History: Positive for:: Chest Pain Edema Denies:: Cardiac Surgery Congestive Heart Failure Heart Murmur Hypertension Irregular Heartbeat Pacemaker Thrombophlebitis Hx of Respiratory Problem?: No Respiratory History: Denies:: Tuberculosis Hx Neurologic Problems?: Yes Neurological History: Positive for:: Dizziness Headaches Denies:: Alzheimer's Disease CVA Dementia Parkinson's Disease Seizures Hx of GI Problems?: No Gastrointestinal History: Denies:: Diverticulitis Gastroesphageal Reflux Gastrointestinal Bleeding Heartburn Hepatitis Hiatal Hernia Rectal Bleeding Hx of Problems?: No Male Hx: Denies:: Prostate Problems Scrotal Mass Testicular Surgery Hx Musculoskeletal Problems?: Yes Musculoskeletal History: Positive for:: Back Injury (this visit) Denies:: Joint Replacement Musculoskeletal Trauma Hx of Psycho/Social Problems?: Yes Psycho Social History: Positive for:: Anxiety Hx Depression Denies:: Bipolar Disorder Suicide Attempt Hx Surgeries?: No Hx Any Other Health Problems?: No Other History: Positive for:: Hospitalization (cholelithiasis) Denies:: Cancer Thyroid Disease History Blood Transfusions: Positive for:: Accept Blood Products? Denies:: Blood Transfuse Reaction Blood Transfusions Hx Diabetes: No Hx Alcohol Use: NoHx Substance Use: Yes (meth, heroin) Smoking Status: Current Every Day Smoker (3 cigaretts per day) Have You Smoked inLast 12 mo: YesApprox How Many Cigarettes/day: 3-4 CIGS/DAY Stop/Bang Treated for Sleep Apnea?: No Do You Have a CPAP Machine?: No S-Snoring: Do You Snore Loudly: Yes T-Tired: feel tired, fatigued: Yes O-Obsered: Observed not breath: No P-Blood Pressure: treated: No B- Body Mass Index > 35 kg/m2: No A- Age over 50: No N- Neck Large Circumference: No G- Gender Male: Yes SAL Total Score: 3 SAL Risk Assessment: High Risk, =/>3 Yes SAL Category 4 OutPt Procedure: Yes Risk Assessment Category Category 1A: Patient has history of documented sleep apnea, and HAS NOT received any narcotic, sedative or anesthesia administration during this stay. Category 1B: Patient has history of documented sleep apnea, and HAS received any narcotic , sedative or anesthesia administration during this stay Category 2: Patient has SUSPECTED Obstructive Sleep Apnea, and HAS received any narcotic , sedative or anesthesia administration during this stay. Category 3: Patient has SUSPECTED Obstructive Sleep Apnea and HAS NOT received narcotic, sedative or anesthesia administration during this stay. Category 4: Outpatient in Procedural Areas with known sleep apnea or who screen positive for High Risk via the STOP/BANG questionnaire. Exam Exam Vital Signs Vital Signs Date Time Temp Pulse Resp B/P Pulse Ox O2 Delivery O2 Flow Rate FiO2 10/23/16 13:19 37.0 73 22 109/68 95 Room Air 10/23/16 09:01 37.5 90 23 114/66 93 Room Air 10/23/16 08:00 86 General Appearance: Alert, Oriented X3, Cooperative, No Acute Distress HEENT/AIRWAY: MP 2 Lungs: Clear to Auscultation, Normal Air Movement Heart: Exam Unremarkable, Regular Rate/Rhythm, No Murmurs/Rubs/Gallops Meds/Labs/Diagnostics Admission Meds Current Medications Ceftaroline Fosamil 600 mg/ Dextrose/Water 250 ml @ 250 mls/hr Q8H IV Last administered on 10/23/16 10:39; Start 10/22/16 at 18:30 Vancomycin HCl/ Sodium Chloride (Vancocin Inj/ Normal Saline) 500 ml @ 333.333 mls/hr Q6H IV Last administered on 10/23/16 12:27; Start 10/23/16 at 12:00 Labs Test 10/20/16 00:30 10/20/16 03:10 10/20/16 05:00 10/20/16 08:41 Neutrophils (%) (Auto) 75.2% (40-74) Lymphocytes (%) (Auto) 14.4% (14-46) Monocytes (%) (Auto) 10.0% (4-12) Eosinophils (%) (Auto) 0% (0-5) Basophils (%) (Auto) 0.1% (0-3) Erythrocyte Sedimentation Rate 15mm/hr (0-15) Hold Purple Top Tube Received (Received) Prothrombin Time 11.9sec (8.1-12.5) Prothromb Time International Ratio 1.11ratio Activated Partial Thromboplast Time 30.6sec (22.8-33.0) Hold Blue Top Tube Received (Received) Phosphorus Level 3.8mg/dL (2.5-4.9) Magnesium Level 2.2mg/dL (1.6-2.6) Troponin T 0.010ug/L (0.0-0.011) Pro-B-Type Natriuretic Peptide 48.37pg/mL (0-86) Lipase 17U/L (13-60) Procalcitonin 0.49ng/mL (0.00-0.08) Hold [place] Top Tube Received (Received) Hold [place] Top Tube Received (Received) Urine Color Dark yellow (YELLOW) Urine Appearance Clear (CLEAR,HAZY) Urine pH 6.5 (5.0-8.0) Urine Specific [place] 1.010 (1.003-1.035) Urine Protein Negativemg/dL (NEG,TRACE) Urine Glucose (UA) Negativemg/dL (NEGATIVE) Urine Ketones Negativemg/dL (NEGATIVE) Urine Occult Blood Negative (NEGATIVE) Urine Nitrite Negative (NEGATIVE) Urine Bilirubin Negative (NEGATIVE) Urine Urobilinogen 1.0mg/dL (NORMAL) Urine Leukocyte Esterase Negative (NEGATIVE) Urine RBC 0-2/hpf (0-2) Urine WBC 0-5/hpf (0-5) Urine Epithelial Cells Occasional/hpf (NONE-MOD) Urine Crystals None seen (NONE SEEN) Urine Bacteria Few/hpf (NONE-FEW) Urine Hyaline Casts None/lpf (NONE) Urine Granular Casts None seen (NONE SEEN) Urine Waxy Casts None seen (NONE SEEN) Urine Red Blood Cell Casts None seen (NONE SEEN) Urine White Blood Cell Casts None seen (NONE SEEN) Urine Mucus None seen (None Seen) Urine Trichomonas None seen (NONE SEEN) Urine Yeast None (NONE SEEN) Urinalysis Comment None Urine Culture Reflexed Not indicated Chlamydia trachomatis DNA (LELO) Negative (Negative) Neisseria gonorrhoeae DNA (LELO) Negative (Negative) Rheumatoid Factor 18.0IU/mL (0.0-13.9) Rapid Plasma Reagin Non reactive (Non Reactive) Hepatitis A IgM Antibody Negative (Negative) Hepatitis B Surface Antigen Negative (Negative) Hepatitis B Core IgM Antibody Negative (Negative) Hepatitis C Antibody >11.0s/co ratio Hepatitis C Antibody Comment Comment (.) HIV (1&2) Ag and Ab, 4th Generation Non reactive (Non Reactive) Test 10/21/16 11:00 10/22/16 02:45 10/23/16 08:15 10/23/16 13:25 Lactic Acid Level 0.7mmol/L (0.4-2.0) Total Bilirubin 0.3mg/dL (0.0-1.2) Aspartate Amino Transf (AST/SGOT) 10U/L (0-50) Alanine Aminotransferase (ALT/SGPT) 10U/L (0-44) Alkaline Phosphatase 56U/L (25-150) Total Protein 5.6g/dL (6.4-8.4) Albumin 2.5g/dL (3.4-5.0) Vancomycin Level Trough 26.7mcg/mL White Blood Count 17.1th/mm3 (3.8-10.1) Red Blood Count 3.92mil/mm3 (4.40-5.80) Hemoglobin 10.7g/dL (13.8-17.2) Hematocrit 33.4% (41.0-50.0) Mean Corpuscular Volume 85.2fL (81-100) Mean Corpuscular Hemoglobin 27.3pg (27.0-35.0) Mean Corpuscular Hemoglobin Concent 32.0% (32.0-37.0) Red Cell Distribution Width 12.9% (12.3-15.4) Platelet Count 335bil/L (150-400) Plan Impression Patient chart reviewed, patient interviewed and anesthestic plan with risks, benefits, and alternatives discussed, and informed consent obtained. ASA Physical Status: ASA3 Severe Disease Anesthetic Plan: MAC Bene/Risks/Altern/Consents: Yes HP Complete Prior to Induction: Yes Jovany Adames MD Oct 23, 2016 13:55
--- NOTE | 2016-10-23 14:55 | PCM.PHAPRO ---
Progress Date of Service: Oct 23, 2016 Vancomycin dosing Trough was drawn 2 hours early and was 26.7. It is likely not truly this high, but still supratherapeutic. Reduced dose to 1750mg q6h and will recheck trough @ 0530 on 10/24. Pharmacy will continue to follow daily. Robb Hernández Oct 23, 2016 14:55
--- NOTE | 2016-10-23 15:44 | PROG NOTE ---
[address] [address] PROGRESS NOTE PATIENT: LORI BALDWIN : 1990 MR#: [id number] ADMIT: 10/20/2016 JOB ID: [id number] DATE: 10/23/2016 INFECTIOUS DISEASE FOLLOW UP NOTE: REASON FOR FOLLOWUP: High-grade MRSA bacteremia and possible endocarditis. INTERVAL HISTORY: Overnight, the patient reports he has been free of fevers or chills. He has no chest pain or shortness of breath. No palpitations or chest pain. No nausea, vomiting or diarrhea. He is tolerating his antibiotics reasonably well. PHYSICAL EXAMINATION: Reveals a somewhat somnolent gentleman who can be roused and he follows commands. His temperature is 38.5 at 5 a.m. this morning. He is 37 degrees now. Pulse 73, respiratory rate 22, blood pressure 109/68. The patient can be roused and he is appropriate when he is. Conjunctivae and sclerae are normal. Oral cavity: No thrush or pharyngitis. The lungs are notable for a few crackles, more on the left than the right base. Cardiac tones without noticeable murmur but that is using a poor-quality stethoscope in the room. The abdomen is soft and nontender. He does not have peripheral stigmata of endocarditis on his hands. LABORATORIES: Include a white count slowly falling now 17,000. His creatinine is 0.55. His LFTs are normal. His albumin is 2.5. Vanco trough has been consistently low and now we have one of 27 so we backing off on the vanco dose. Hep C is positive. We are waiting for the viral load. HIV is negative. He continues to have multiple positive blood cultures including cultures positive from the on multiple bottles and now on the . IMAGING: No new imaging has been done. IMPRESSION: This is a worrisome case of a young man with a high-grade MRSA bacteremia in the setting of IV drug use. His CT scans looked like multiple pulmonary septic emboli as well as bilateral pyelonephritis which could indicate left-sided endocarditis as well. He has had some back pain which worried us early on but that seems to be diminishing and I failed to mention on today's examination that he has excellent motor strength everywhere and his intrascapular back tenderness is resolving. The patient is still refusing MRI scan of the back but I think in view of the diminishing pain and has good neuro examination, we can probably wait on that. RECOMMENDATIONS: 1. Will continue with the vancomycin which is being given at high doses as well as the ceftaroline which I added yesterday out of concern that we were not getting good antimicrobial activity out of our vanco because of low levels. 2. The patient is scheduled for EFREN later today. 3. We await his hepatitis C studies. 4. If the patient does develop any significant worsening of his back pain or any neurologic symptoms whatsoever, will need a CT with contrast of his back and perhaps to try and persuade once again to get the MRI with contrast. 5. This case discussed at the bedside with Dr. Streeter of the hospitalist team.
--- NOTE | 2016-10-23 16:49 | NUR ---
[facility] Transferred to [facility] by at 1500 for EFREN with anesthesia. Patient under respiratory contact precautions. Procedure complete with Home Stager, anesthesiologist, RN and tech at bedside. When patient fully awake returned by to room 3029 at 1615. Report to receiving RN.
--- NOTE | 2016-10-23 17:45 | PCM.ANEP1 ---
Post Anesthesia Phase 1 PACU Phase 1 Assessment Date of Service: Oct 23, 2016 Vital Signs Vital Signs Date Time Temp Pulse Resp B/P Pulse Ox O2 Delivery O2 Flow Rate FiO2 10/23/16 16:48 37.4 97 22 114/70 95 Room Air 10/23/16 16:10 80 24 111/57 95 Room Air 10/23/16 16:00 82 24 112/59 93 Room Air 10/23/16 15:50 68 24 102/53 96 Nasal Cannula 2.00 10/23/16 15:45 68 20 106/52 96 Nasal Cannula 4.00 10/23/16 15:40 68 22 101/53 95 Nasal Cannula 4.00 10/23/16 13:19 37.0 73 22 109/68 95 Room Air Anesthetic Administered: MAC Level of Alertness: Awake, talking Pain: No Nausea or Vomiting: No Oxygen Delivery: Nasal Cannula Lungs: Clear to Auscultation, Normal Air Movement Dermatome Level: Full Sensation Jovany Adames MD Oct 23, 2016 17:45
--- NOTE | 2016-10-23 17:45 | PCM.ANEP2 ---
Post Anesthesia Evaluation ASA/CMS Post Anesthesia VS in Patient's Normal Range?: Yes Resp Stable; Airway Patent?: Yes CV Function & Hydration Stable: Yes Mental Status Recovered?: Yes Pain control Satisfactory?: Yes N/V Control Satisfactory?: Yes Jovany Adames MD Oct 23, 2016 17:45
--- NOTE | 2016-10-23 18:14 | DRSVH ---
[facility] [address] [place] [address] Echocardiogram Report Name: OLRI BALDWIN Study Date: 10/23/2016 Height: 70 in Hospital Exam Location: [facility] Weight: 179 lb Gender: Male BSA: 2.0 m2 : 1990 Age: 26 yrs BP: 107/66 mmHg Reason For Study: ENDOCARDITIS Ordering Physician: HOSPITALIST SVerformed By: Perla Murphy Referring Physician: MD Yolie Fagan Interpretation Summary 1. Grossly normal left ventricular size with normal systolic function. 2. Grossly normal right ventricular size with normal systolic function. 3. In the views obtained, no valvular vegetations were appreciated. There is no significant regurgitation to suggest valvular destruction secondary to infection. Procedure: Informed consent for Transesophageal Echocardiogram, and use of a contrast agent as needed, was obtained prior to the procedure. The patient was brought to the [facility] in a fasting state. Sedation was managed by anesthesiologist; see anesthesiology notes for details. The transesophageal probe was passed without difficulty. An intravenous line was placed. A topical anesthetic agent was used for oropharangeal anesthesia. A bite block was inserted. The patient's vital signs, including blood pressure, heart rate, pulse oximetry and cardiac rhythm were monitored throughout the procedure and remained stable. A 2D transesophageal echocardiogram with spectral and color flow Doppler was performed. The usual views were obtained; basal, mid-esophageal, transgastric and aortic views. The patient was in normal sinus rhythm during the exam. There were no complications. Left Ventricle: The left ventricle is grossly normal size. Left ventricular systolic function is normal. Right Ventricle: The right ventricle is grossly normal size. The right ventricular systolic function is normal. Mitral Valve: The mitral valve leaflets appear normal. There is no evidence of stenosis, fluttering, or prolapse. No vegetations appreciated. There is trace mitral regurgitation. Aortic Valve: The aortic valve is trileaflet. The aortic valve opens well. No vegetations appreciated. Tricuspid Valve: The tricuspid valve leaflets are thin and pliable. No vegetations appreciated. Pulmonic Valve: The pulmonic valve leaflets are thin and pliable; valve motion is normal. In the views obtained,no vegetations were seen. Reading Physician:06:13 PM
[2016-10-24] VITALS (7 sets, daily range): BP systolic 95–133; BP diastolic 57–80; PULSE 72–93; RESP 21–24; O2SAT 91–94
--- NOTE | 2016-10-24 | NUR ---
Febrile 39.4 @ 21:14, notified administered 650mg Tylenol. Temperature now 37.9.
--- NOTE | 2016-10-24 00:19 | PCM.PNMED ---
Subjective Date of Service Oct 24, 2016 Subjective The patient is feeling a little better. He has no new complaints. His back pain is feeling better he has full strength of his lower extremities. Exam Vital Signs Vital Sign - Last Date Time Temp Pulse Resp B/P Pulse Ox O2 Delivery O2 Flow Rate FiO2 10/23/16 23:59 37.9 10/23/16 21:31 102 10/23/16 21:14 22 104/62 91 Room Air 10/23/16 15:50 2.00 Intake and Output 10/23/16 10/23/16 10/24/16 Cumulative From/Thru 15:00 23:00 07:00 10/20/16 00:16 - 10/23/16 20:13 Intake Total 2250 ml 57896 ml Output Total 1100 ml 9375 ml Balance 1150 ml 33564 ml Intake Oral 750 ml 3800 ml IV Total 1500 ml 29745 ml Output Urine Total 1100 ml 9375 ml # Voids 4 10 # Bowel Movements 0 0 Exam General: Patient is in no apparent distress. HEENT: Head is atraumatic and normocephalic. Eyes: Pupils are equally round, narrowed and reactive to light and accommodation. Extraocular muscles are intact. Sclera are white, anicteric. Subconjunctival mucosa is pink. Ears and nose are unremarkable. Oropharynx: There is no mucosal lesions, there is no thrush, there is no pharyngitis. Neck: Is supple, there are no nodes, or masses or tenderness. Chest: Is negative for few basilar rales. There are no rhonchi wheezes or rubs. Heart: Rate, rhythm is regular. There is no new murmur, rub or gallop. Ever, heart tones are distant. Abdomen: Good bowel sounds are present. Abdomen is soft, nontender, no organomegaly or masses were appreciated. Extremities: Are symmetrical and well perfused. There is no edema, there is no cellulitis, no rash. Neurologic: There are no focal neurological deficits. Cranial nerves II through XII are intact. There are no sensory or motor deficits. Psychiatric: Patients mood is calm and he shows no sign of agitation. Genital: Deferred Rectal: Deferred Lab and Diagnostics Result Diagram: 10/23/16 1325 10/23/16 1325 X-Rays, CTs and MRIs CT scan of the brain negative for intracranial process, CT scan of abdomen and pelvis showed septic emboli to kidneys bilaterally, CT angio of chest showed multiple septic emboli to lungs bilaterally, no over vegetations of heart valves noted on CT chest 12-lead ECG ECG Interpretation: Sinus tachycardia rate 114 Time: 01:12 Interpreted by: ED physician Cardiac Echo Impressions Echocardiogram Report Name: LORI BALDWIN Study Date: 10/20/2016 Height: 70 in Hospital Exam Location: [facility] Weight: 177 lb Gender: Male BSA: 2.0 m2 : 1990 Age: 26 yrs BP: 106/59 mmHg Reason For Study: Endocarditis History: IVDA, SMOKER Ordering Physician: Performed By: Sarika OvallesM[facility] AllianceIST [facility] Interpretation Summary The left ventricle is normal in size, wall thickness, and systolic function without any focal wall motion abnormalities. The ejection fraction is estimated to be 60-65%. The right ventricle is normal in size and function. The left atrium is mildly dilated. Right atrial size is normal. There is no obvious valvular vegetation identified on this exam. Consider EFREN if there is a high degree of clinical suspicion for endocarditis and clinically appropriate. There is no significant valvular heart disease. The aortic root is normal size. Procedure: A two-dimensional transthoracic echocardiogram with color flow and Doppler was performed. The study quality was technically adequate. There is no prior echocardiogram noted for this patient. The patient was in normal sinus rhythm during the exam. Left Ventricle: The left ventricle is normal in size, wall thickness, and systolic function without any focal wall motion abnormalities. A false chord is noted (normal variant). The ejection fraction is estimated to be 60-65%. The transmitral spectral Doppler flow pattern is normal for age. Right Ventricle: The right ventricle is normal in size and function. Atria: The left atrium is mildly dilated. Right atrial size is normal. There is no Doppler evidence for an interatrial shunt. Mitral Valve: The mitral valve is normal in structure and function. There is trace mitral regurgitation. Aortic Valve: The aortic valve is normal in structure and function. No aortic regurgitation is present. Tricuspid Valve: The tricuspid valve is normal in structure and function. Pulmonary artery pressures cannot be estimated because of the lack of a measurable TR jet velocity. Pulmonic Valve: The pulmonic valve is normal in structure and function. There is no pulmonic valvular regurgitation. There is no obvious valvular vegetation identified on this exam. Consider EFREN if there is a high degree of clinical suspicion for endocarditis and clinically appropriate. There is no significant valvular heart disease. Great Vessels: The aortic root is normal size. The ascending aorta is normal in size. The IVC has a measurement of 20 mm. The patient could not perform sniff test. Pericardium/ Pleura There is no pericardial effusion. MMode/2D Measurements & Calculations LVIDd: 5.4 cm RA long axis LVOT diam LVIDs: 3.2 cm LA A2 area: 21.8 cm FS: 39.5 % LA A4 area: 23.1 cm RA area AoV Opening EPSS: 0.47 cm LA length (vol): 6.2 cm IVSd: 0.66 cm LA vol: 68.8 ml : 18.3 cm Ao root diam LVPWd: 0.71 cm LA vol index RA vol : 59.5 ml asc Aorta RA Diam: 3.2 cm IVC diam: 2.0 cm : 30.0 mm2 LV rodrigues. diameter/BSA LV sys. diameter/BSA RVD1 (basal) (cm/m^2): 2.7 (cm/m^2): 1.6 Doppler Measurements & Calculations Ao V2 max MV E max jorge MV E/A: 2.3 PA V2 max : 171.7 cm/sec : 117.0 cm/sec Med Peak E' Jorge : 99.6 cm/sec Ao max PG MV A max jorge PA mean PG : 11.8 mmHg : 50.8 cm/sec E/E' med: 8.9 Ao mean PG MV P1/2t: 66.3 msec Lat Peak E' Jorge PA Accel Time : 0.12 sec LVOT Max Jorge E/E' lat: 6.0 : 123.3 cm/sec E/e' average: 7.4 KAILYN(I,D): 3.2 cm Pulm A Revs Dur sev ratio MV A dur: 0.09 sec MV dec time MV P1/2t max jorge Ao V2 mean LV V1 max PG : 0.23 sec : 113.9 cm/sec Ao V2 VTI: 25.9 cm LV V1 VTI MVA(P1/2t): 3.3 cm2 : 20.9 cm KAILYN(V,D): 2.8 cm2 PA V2 mean KAILYN indexed to BSA Pulm A Revs Dur - MV A : 68.9 cm/sec (cm^2/m^2): 1.6 Dur: -0.01 msec Reading Physician:PM Assessment & Plan Patient is a 26 y.o. M with past medical history of IVDU heroin and methamphetamine, needle sharing, three previous OD on heroin, last heroine use 7 -8 hours prior to ED admission, last meth use yesterday, admitted to ED for worsening chest and abdominal pain. Admitted for treatment of sub acute bacterial endocartitis due to IVDU, sepsis with septic emboli to lungs and kidneys. 1. MRSA bacteremia, patient seen with Dr. Pagan and his team. - Patient has history of IVDU heroin and methamphetamine, multiple septic emboli noted on CT of lungs and kidneys, indicative of right and left sided heart valve involvement - Roland criteria + 3 minor criteria: fever, septic emboli on CT, IVDU - IV Vancomycin ordered dosed per pharmacy. Ceftaroline 600 mg IV every 8 hours added today by Dr. Pagan. - Continue IV fluid resuscitation with NS @ 80 mls/hr - TTE done as noted above. EFREN was performed today and was reportedly negative for vegetations according to Dr. Mena. - Percocet 5 mg Q6 hours for pain - Infectious disease consult appreciated -Blood cultures are growing MRSA and will continue with contact and droplet precautions 2. Sepsis, acute. Present at the time of admission Patient also has septic pulmonary emboli and possibly pyelonephritis. - Likely source of infection is intravenous drug use - WCT 23, lactic acid 1.6 - CT scan chest, abdomen/pelvis show multiple areas of emboli - Procalcitonin ordered, 0.49 - Continue with IV vancomycin with pharmacy to monitor 3. Urinary retention - Possibly due to septic emboli to kidneys vs UTI vs STD/STI - Place Ford cath - Bladder scan ordered - UA and culture ordered - G/C urine ordered UA is dip negative. Will follow clinically. Attempt to discontinue Ford in the next 1 or 2 days. 4. IVDU heroin and methamphetamine - Prior overdoses x 3, - Clonazepam 0.5 PRN for signs of withdrawal -Patient currently on scheduled methadone and clonidine with IV Ativan and IV morphine when necessary pain This point we will place him on methadone 10 mg by mouth 3 times a day and then orchestrate a slow taper over the next week. 5. High risk behavior - IVDU, needle sharing, never screened for HIV, Hepatitis, STD/STI - HIV 1/2 screen ordered (negative) - Hepatitis panel ordered (hep C antibody positive with PCR pending) - G/C screen urine ordered Disposition: As patient's second set of blood cultures are now coming back positive patient is likely to be her for several days if not weeks for IV antibiotics. Dr. Gibson to follow in a.m. Pain Evaluation: Adequate Pain Control VTE Prophylaxis: Sub-Q Heparin (Unfractionated) VTE Mechanical Devices: Venous Foot Pump Resuscitation Status: CPR: Attempt Resuscitation SylTerry MD Oct 24, 2016 00:19
[2016-10-24] MEDS: Sodium Chloride LOK Flush 10 mL Syringe IVFLUSH SCH ×3 (00:30→16:30)
[2016-10-24] MEDS: Heparin 5,000 Unit/mL Inj SUBQ SCH ×3 (00:49→16:30)
[2016-10-24] MEDS: 0.9% Sodium Chloride 1,000 ML IV SCH ×3 (00:49→21:15)
[2016-10-24] MEDS: Vancomycin Inj 1,750 MG in 0.9% Sodium Chloride 500 ML IV SCH (02:20)
[2016-10-24] MEDS: Ceftaroline Inj 600 MG in Dextrose 5% 250 ML IV SCH ×2 (04:25→10:38)
[2016-10-24] MEDS ORDERED: Vancomycin Serum Trough XX ONE (08:00)
[2016-10-24] MEDS: Vancomycin Dose per Pharmacist XX SCH (08:30)
[2016-10-24] MEDS ORDERED: Vancomycin Inj 1,750 MG in 0.9% Sodium Chloride 500 ML IV SCH (08:30)
--- NOTE | 2016-10-24 10:16 | PCM.PNMED ---
Subjective Date of Service Oct 24, 2016 Subjective - Pt seen and examined this morning. He is AAO x 3 - c/o mild generalized body aches. States that he is feeling better than yesterday. His back pain is significantly less than yesterday. Exam Vital Signs Vital Sign - Last Date Time Temp Pulse Resp B/P Pulse Ox O2 Delivery O2 Flow Rate FiO2 10/24/16 08:39 37.6 74 24 108/63 94 Room Air 10/23/16 15:50 2.00 Intake and Output 10/23/16 10/23/16 10/24/16 Cumulative From/Thru 15:00 23:00 07:00 10/20/16 00:16 - 10/24/16 06:37 Intake Total 2250 ml 2241 ml 39190 ml Output Total 1100 ml 9375 ml Balance 1150 ml 2241 ml 67668 ml Intake Oral 750 ml 3800 ml IV Total 1500 ml 2241 ml 46249 ml Output Urine Total 1100 ml 9375 ml # Voids 4 10 # Bowel Movements 0 0 Exam General: Patient is in no apparent distress. HEENT: Head is atraumatic and normocephalic. Eyes: Pupils are equally round, narrowed and reactive to light and accommodation. Extraocular muscles are intact. Sclera are white, anicteric. Subconjunctival mucosa is pink. Ears and nose are unremarkable. Oropharynx: There is no mucosal lesions, there is no thrush, there is no pharyngitis. Neck: Is supple, there are no nodes, or masses or tenderness. Chest: Is negative for few basilar rales. There are no rhonchi wheezes or rubs. Heart: Rate, rhythm is regular. There is no new murmur, rub or gallop. Ever, heart tones are distant. Abdomen: Good bowel sounds are present. Abdomen is soft, nontender, no organomegaly or masses were appreciated. Extremities: Are symmetrical and well perfused. There is no edema, there is no cellulitis, no rash. Neurologic: There are no focal neurological deficits. Cranial nerves II through XII are intact. There are no sensory or motor deficits. Psychiatric: Patients mood is calm and he shows no sign of agitation. IVs and Medications Medications Reviewed: Medications were reviewed in detail Lab and Diagnostics Result Diagram: 10/23/16 1325 10/24/16 0550 X-Rays, CTs and MRIs CT scan of the brain negative for intracranial process, CT scan of abdomen and pelvis showed septic emboli to kidneys bilaterally, CT angio of chest showed multiple septic emboli to lungs bilaterally, no over vegetations of heart valves noted on CT chest 12-lead ECG ECG Interpretation: Sinus tachycardia rate 114 Time: 01:12 Interpreted by: ED physician Cardiac Echo Impressions Echocardiogram Report Name: LORI BALDWIN Study Date: 10/20/2016 Height: 70 in Hospital Exam Location: [facility] Weight: 177 lb Gender: Male BSA: 2.0 m2 : 1990 Age: 26 yrs BP: 106/59 mmHg Reason For Study: Endocarditis History: IVDA, SMOKER Ordering Physician: Performed By: [facility] Interpretation Summary The left ventricle is normal in size, wall thickness, and systolic function without any focal wall motion abnormalities. The ejection fraction is estimated to be 60-65%. The right ventricle is normal in size and function. The left atrium is mildly dilated. Right atrial size is normal. There is no obvious valvular vegetation identified on this exam. Consider EFREN if there is a high degree of clinical suspicion for endocarditis and clinically appropriate. There is no significant valvular heart disease. The aortic root is normal size. Procedure: A two-dimensional transthoracic echocardiogram with color flow and Doppler was performed. The study quality was technically adequate. There is no prior echocardiogram noted for this patient. The patient was in normal sinus rhythm during the exam. Left Ventricle: The left ventricle is normal in size, wall thickness, and systolic function without any focal wall motion abnormalities. A false chord is noted (normal variant). The ejection fraction is estimated to be 60-65%. The transmitral spectral Doppler flow pattern is normal for age. Right Ventricle: The right ventricle is normal in size and function. Atria: The left atrium is mildly dilated. Right atrial size is normal. There is no Doppler evidence for an interatrial shunt. Mitral Valve: The mitral valve is normal in structure and function. There is trace mitral regurgitation. Aortic Valve: The aortic valve is normal in structure and function. No aortic regurgitation is present. Tricuspid Valve: The tricuspid valve is normal in structure and function. Pulmonary artery pressures cannot be estimated because of the lack of a measurable TR jet velocity. Pulmonic Valve: The pulmonic valve is normal in structure and function. There is no pulmonic valvular regurgitation. There is no obvious valvular vegetation identified on this exam. Consider EFREN if there is a high degree of clinical suspicion for endocarditis and clinically appropriate. There is no significant valvular heart disease. Great Vessels: The aortic root is normal size. The ascending aorta is normal in size. The IVC has a measurement of 20 mm. The patient could not perform sniff test. Pericardium/ Pleura There is no pericardial effusion. MMode/2D Measurements & Calculations LVIDd: 5.4 cm RA long axis LVOT diam LVIDs: 3.2 cm LA A2 area: 21.8 cm FS: 39.5 % LA A4 area: 23.1 cm RA area AoV Opening EPSS: 0.47 cm LA length (vol): 6.2 cm IVSd: 0.66 cm LA vol: 68.8 ml : 18.3 cm Ao root diam LVPWd: 0.71 cm LA vol index RA vol : 59.5 ml asc Aorta RA Diam: 3.2 cm IVC diam: 2.0 cm : 30.0 mm2 LV rodrigues. diameter/BSA LV sys. diameter/BSA RVD1 (basal) (cm/m^2): 2.7 (cm/m^2): 1.6 Doppler Measurements & Calculations Ao V2 max MV E max jorge MV E/A: 2.3 PA V2 max : 171.7 cm/sec : 117.0 cm/sec Med Peak E' Jorge : 99.6 cm/sec Ao max PG MV A max jorge PA mean PG : 11.8 mmHg : 50.8 cm/sec E/E' med: 8.9 Ao mean PG MV P1/2t: 66.3 msec Lat Peak E' Jorge PA Accel Time : 0.12 sec LVOT Max Jorge E/E' lat: 6.0 : 123.3 cm/sec E/e' average: 7.4 KAILYN(I,D): 3.2 cm Pulm A Revs Dur sev ratio MV A dur: 0.09 sec MV dec time MV P1/2t max jorge Ao V2 mean LV V1 max PG : 0.23 sec : 113.9 cm/sec Ao V2 VTI: 25.9 cm LV V1 VTI MVA(P1/2t): 3.3 cm2 : 20.9 cm KAILYN(V,D): 2.8 cm2 PA V2 mean KAILYN indexed to BSA Pulm A Revs Dur - MV A : 68.9 cm/sec (cm^2/m^2): 1.6 Dur: -0.01 msec Reading Physician:PM Assessment & Plan 26 y.o. M with past medical history of IVDU heroin and methamphetamine, needle sharing, three previous OD on heroin, last heroine use 7-8 hours prior to ED admission, last meth use yesterday, admitted to ED for worsening chest and abdominal pain. Admitted for treatment of sub acute bacterial endocartitis due to IVDU, sepsis with septic emboli to lungs and kidneys. 1. MRSA bacteremia, patient seen with Dr. Pagan and his team. - Patient has history of IVDU heroin and methamphetamine, multiple septic emboli noted on CT of lungs and kidneys, indicative of right and left sided heart valve involvement - Roland criteria + 3 minor criteria: fever, septic emboli on CT, IVDU - IV Vancomycin ordered dosed per pharmacy. Ceftaroline 600 mg IV every 8 hours added today by Dr. Pagan. - Continue IV fluid resuscitation with NS @ 80 mls/hr - TTE done as noted above. EFREN was performed today and was reportedly negative for vegetations according to Dr. Mena. - Percocet 5 mg Q6 hours for pain - Infectious disease consult appreciated - Blood cultures are growing MRSA and will continue with contact and droplet precautions 2. Sepsis, acute. Present at the time of admission Patient also has septic pulmonary emboli and possibly pyelonephritis. - Likely source of infection is intravenous drug use - WCT 23, lactic acid 1.6 - CT scan chest, abdomen/pelvis show multiple areas of emboli - Procalcitonin, 0.49 - Continue with IV vancomycin with pharmacy to monitor 3. Urinary retention - Possibly due to septic emboli to kidneys vs UTI vs STD/STI - Urine culture: mixed urogenital liliana - UA is dip negative. Will follow clinically. Attempt to discontinue Ford in the next 1 or 2 days. 4. IVDU heroin and methamphetamine - Prior overdoses x 3, - Clonazepam 0.5 PRN for signs of withdrawal - Patient currently on scheduled methadone and clonidine with IV Ativan and IV morphine when necessary pain - This point we will place him on methadone 10 mg by mouth 3 times a day and then orchestrate a slow taper over the next week. 5. High risk behavior - IVDU, needle sharing, never screened for HIV, Hepatitis, STD/STI - HIV 1/2 screen ordered (negative) - Hepatitis panel ordered (hep C antibody positive with PCR pending) - G/C screen urine ordered Disposition: As patient's second set of blood cultures are now coming back positive patient is likely to be her for several days for IV antibiotics. VTE Prophylaxis: Sub-Q Heparin (Unfractionated) VTE Mechanical Devices: Venous Foot Pump Resuscitation Status: CPR: Attempt Resuscitation Mathew Gibson MD Oct 24, 2016 10:16
--- NOTE | 2016-10-24 10:29 | NUR ---
Social Work: Continued d/c planning Data: Pt is on day 4 of hospitalization. EMR reviewed, pt discussed in rounds. states pt will be on group home IVABX for 4-6 weeks at the hospital due to IV drug use. CDP from [place] to meet with pt regarding CD use. ASSET ANALYST will continue to follow. Assessment: Pt who is independent at baseline, IV drug user. Plan: Pt will d/c home when medically stable, CDP from [place] to meet with pt regarding CD use. ASSET ANALYST will continue to follow. KINGA Murphy
[2016-10-24] MEDS: oxyCODONE-Acetamin 5-325 mg Tablet PO PRN ×2 (10:32→21:33)
[2016-10-24] MEDS: cloNIDine 0.1 mg Tablet PO SCH ×3 (10:43→21:16)
--- NOTE | 2016-10-24 11:22 | PCM.PHAPRO ---
Progress Date of Service: Oct 24, 2016 Vancomycin dosing Scr 0.74, Tmax = 39.4, vanco trough = 19.5 Pt continues on IV vancomycin 1750mg IV q6h and ceftaroline for sepsis and suspected endocarditis. Trough today was technically therapeutic at 19.5 although dosing schedule has been off and is probably closer to q8h. Will adjust dose to vancomycin IV 2000mg q8h and recheck a trough tomorrow. Of note , vanco is infusing over 3hrs for patient comfort. Pharmacy will continue to follow this pt with you. Anabel Crenshaw PharmD Oct 24, 2016 11:22
--- NOTE | 2016-10-24 16:58 | PROG NOTE ---
[address] [address] PROGRESS NOTE PATIENT: LORI BALDWIN : 1990 MR#: [id number] ADMIT: 10/20/2016 JOB ID: [id number] DATE: 10/24/2016 REASON FOR FOLLOWUP: High-grade MRSA bacteremia with probable endocarditis. INTERVAL HISTORY: The patient reports he still has some rather severe right pleuritic chest pain which is made worse by deep inspiration. He reports his back pain is gradually subsiding and he denies any weakness in his lower extremities or bowel or bladder problems. The patient continues to have fevers and chills, but overall, he notes he is feeling somewhat better. No nausea, vomiting, diarrhea. No dysuria. The patient is up, walking around without difficulty. PHYSICAL EXAMINATION: Reveals a gentleman who has been febrile now consistently for five days with no real change in his fever curve. His current temp in fact is 38.3. Blood pressure is stable, at least 121/76, pulse 75, respiratory rate 20. Examination of the head reveals no abnormalities. Eyes without conjunctival hemorrhage. Oral cavity benign. Lungs reasonably clear. Cardiac tones without murmur. Regular rate and rhythm. Abdomen benign. He does not have peripheral stigmata of endocarditis. LABORATORIES: Include white count 17,000, so very slowly declining, with relatively normal diff. Creatinine up a bit, 0.74. His vancomycin trough is 19.5 this morning, which is excellent. HIV negative. Gonorrhea negative. Hepatitis C positive. We have positive blood cultures for MRSA from the October 20 and followup blood cultures from the October 22 are positive, growing Staph aureus. We now have blood cultures pending from the October 24, but of course, they are not done yet. No new imaging has been done. Recall that our initial CT scan showed multiple pulmonary nodules, likely representing embolic lesions, and his initial CT of the abdomen showed changes in his kidneys, consistent with perhaps septic emboli. The odd part about this case is that the EFREN done yesterday did not show evidence of valvular abnormalities. 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 He has septic pulmonary emboli and what appears to be septic emboli to his kidneys in conjunction with persistently positive blood cultures and persistent fevers, despite hyperaggressive dosing of vancomycin. Though the patient appears improved, I am still very concerned about the possibility of distant metastatic foci of infection such as vertebral osteomyelitis, spinal epidural abscess, evolving lung abscess, evolving renal abscess and similar concerns. We, in no way, can back off on his antibiotic therapy and the patient is not anywhere near being ready for possible consideration for outpatient treatment. RECOMMENDATIONS: 1. Will continue with high-dose vancomycin. 2. Will aim for levels 15-20 on the vancomycin. 3. We are continuing with ceftaroline in an attempt to sterilize his blood cultures. 4. Blood cultures should continue to be done every day. 5. Will continue with ceftaroline for the time being. 6. If his fevers and positive blood cultures persist through the weekend, we will switch to the combination of daptomycin and ceftaroline. Daptomycin and ceftaroline often show a rather mysterious but well studied synergy, which may be our best opportunity to sterilize his blood cultures, but at this point, will continue with vancomycin and ceftaroline. 7. Should the patient develop more back pain, it will be essential to image his back to look for spinal epidural abscess and vertebral osteo and we would use either CT with contrast, or better yet, MRI, if he can tolerate going into the scanner.
--- NOTE | 2016-10-24 17:31 | NUR ---
Pain/Comfort: Patient has received PRN pain med x1 today and anxiety med x1 today. he has been dozing off and on all day. But easily arousable when he is sleeping. His Neuro checks have been WNL.
--- NOTE | 2016-10-24 17:46 | NUR ---
IV: Patients IV in his right arm is no longer patent. Recieved order for patient to have IV PICC line placed. IV Therapy not able to place the Picc line tonight but will place one tomorrow. In the mean time IV therapy will place a temporary peripheral line for patient to recieve his IV antibiotics this evening.
[2016-10-24] MEDS: Vancomycin Inj 2,000 MG in 0.9% Sodium Chloride 500 ML IV SCH (21:16)
--- NOTE | 2016-10-24 23:14 | NUR ---
IV IV therapy unable to put in new peripheral IV line and unable to do PICC line until tomorrow. Paged cristel hospitalistDr from ER came and put in EJ line at 2200. New EJ line is patent and running fluids and IV abx. Will monitor.
[2016-10-25] VITALS (8 sets, daily range): BP systolic 110–136; BP diastolic 61–74; PULSE 67–84; RESP 20–22; O2SAT 92–94
[2016-10-25] MEDS: Sodium Chloride LOK Flush 10 mL Syringe IVFLUSH SCH ×3 (00:16→16:38)
[2016-10-25] MEDS: Heparin 5,000 Unit/mL Inj SUBQ SCH ×3 (00:20→16:34)
[2016-10-25] MEDS: Ceftaroline Inj 600 MG in Dextrose 5% 250 ML IV SCH ×4 (00:58→16:56)
[2016-10-25] MEDS: oxyCODONE-Acetamin 5-325 mg Tablet PO PRN ×2 (02:31→21:18)
[2016-10-25] MEDS: Vancomycin Inj 2,000 MG in 0.9% Sodium Chloride 500 ML IV SCH ×3 (02:49→16:38)
[2016-10-25 08:14] LABS: BASOPHILS % (AUTO) 0.2 % (0-3); EOSINOPHILS % (AUTO) 1.9 % (0-5); Mean Corpuscular Hemoglobin 27.7 pg (27.0-35.0); Mean Corpuscular Volume 85.9 fL (81-100); NEUTROPHILS % (AUTO) 59.1 % (40-74); Platelet Count 369 bil/L (150-400)
[2016-10-25] MEDS: Vancomycin Dose per Pharmacist XX SCH (08:30)
[2016-10-25] MEDS: cloNIDine 0.1 mg Tablet PO SCH ×3 (09:42→21:18)
--- NOTE | 2016-10-25 10:34 | PCM.PNMED ---
Subjective Date of Service Oct 25, 2016 Subjective Pt seen and examined this morning. He is AAO x 3 - He is lying comfortably in bed. c/o mild head ache. Exam Vital Signs Vital Sign - Last Date Time Temp Pulse Resp B/P Pulse Ox O2 Delivery O2 Flow Rate FiO2 10/25/16 10:06 78 10/25/16 08:55 39.3 21 125/74 93 Room Air 10/23/16 15:50 2.00 Intake and Output 10/24/16 10/24/16 10/25/16 Cumulative From/Thru 15:00 23:00 07:00 10/20/16 00:16 - 10/25/16 05:26 Intake Total 660 ml 1592 ml 1683 ml 02798 ml Output Total 1950 ml 1575 ml 96416 ml Balance -1290 ml 17 ml 1683 ml 40843 ml Intake Oral 660 ml 676 ml 5136 ml IV Total 916 ml 1683 ml 44547 ml Output Urine Total 1950 ml 1575 ml 64105 ml # Voids 10 # Bowel Movements 0 0 0 Exam General: Patient is in no apparent distress. HEENT: Head is atraumatic and normocephalic. Eyes: Pupils are equally round, narrowed and reactive to light and accommodation. Extraocular muscles are intact. Sclera are white, anicteric. Subconjunctival mucosa is pink. Ears and nose are unremarkable. Oropharynx: There is no mucosal lesions, there is no thrush, there is no pharyngitis. Neck: Is supple, there are no nodes, or masses or tenderness. Chest: Is negative for few basilar rales. There are no rhonchi wheezes or rubs. Heart: Rate, rhythm is regular. There is no new murmur, rub or gallop. Ever, heart tones are distant. Abdomen: Good bowel sounds are present. Abdomen is soft, nontender, no organomegaly or masses were appreciated. Extremities: Are symmetrical and well perfused. There is no edema, there is no cellulitis, no rash. Neurologic: There are no focal neurological deficits. Cranial nerves II through XII are intact. There are no sensory or motor deficits. Psychiatric: Patients mood is calm and he shows no sign of agitation. IVs and Medications Medications Reviewed: Medications were reviewed in detail Lab and Diagnostics Result Diagram: 10/25/16 0500 3/25/17 0500 X-Rays, CTs and MRIs CT scan of the brain negative for intracranial process, CT scan of abdomen and pelvis showed septic emboli to kidneys bilaterally, CT angio of chest showed multiple septic emboli to lungs bilaterally, no over vegetations of heart valves noted on CT chest 12-lead ECG ECG Interpretation: Sinus tachycardia rate 114 Time: 01:12 Interpreted by: ED physician Cardiac Echo Impressions Echocardiogram Report Name: LORI BALDWIN Study Date: 10/20/2016 Height: 70 in Hospital Exam Location: [facility] Weight: 177 lb Gender: Male BSA: 2.0 m2 : 1990 Age: 26 yrs BP: 106/59 mmHg Reason For Study: Endocarditis History: IVDA, SMOKER Ordering Physician: Performed By: Sarika Fuller [facility] Interpretation Summary The left ventricle is normal in size, wall thickness, and systolic function without any focal wall motion abnormalities. The ejection fraction is estimated to be 60-65%. The right ventricle is normal in size and function. The left atrium is mildly dilated. Right atrial size is normal. There is no obvious valvular vegetation identified on this exam. Consider EFREN if there is a high degree of clinical suspicion for endocarditis and clinically appropriate. There is no significant valvular heart disease. The aortic root is normal size. Procedure: A two-dimensional transthoracic echocardiogram with color flow and Doppler was performed. The study quality was technically adequate. There is no prior echocardiogram noted for this patient. The patient was in normal sinus rhythm during the exam. Left Ventricle: The left ventricle is normal in size, wall thickness, and systolic function without any focal wall motion abnormalities. A false chord is noted (normal variant). The ejection fraction is estimated to be 60-65%. The transmitral spectral Doppler flow pattern is normal for age. Right Ventricle: The right ventricle is normal in size and function. Atria: The left atrium is mildly dilated. Right atrial size is normal. There is no Doppler evidence for an interatrial shunt. Mitral Valve: The mitral valve is normal in structure and function. There is trace mitral regurgitation. Aortic Valve: The aortic valve is normal in structure and function. No aortic regurgitation is present. Tricuspid Valve: The tricuspid valve is normal in structure and function. Pulmonary artery pressures cannot be estimated because of the lack of a measurable TR jet velocity. Pulmonic Valve: The pulmonic valve is normal in structure and function. There is no pulmonic valvular regurgitation. There is no obvious valvular vegetation identified on this exam. Consider EFREN if there is a high degree of clinical suspicion for endocarditis and clinically appropriate. There is no significant valvular heart disease. Great Vessels: The aortic root is normal size. The ascending aorta is normal in size. The IVC has a measurement of 20 mm. The patient could not perform sniff test. Pericardium/ Pleura There is no pericardial effusion. MMode/2D Measurements & Calculations LVIDd: 5.4 cm RA long axis LVOT diam LVIDs: 3.2 cm LA A2 area: 21.8 cm FS: 39.5 % LA A4 area: 23.1 cm RA area AoV Opening EPSS: 0.47 cm LA length (vol): 6.2 cm IVSd: 0.66 cm LA vol: 68.8 ml : 18.3 cm Ao root diam LVPWd: 0.71 cm LA vol index RA vol : 59.5 ml asc Aorta RA Diam: 3.2 cm IVC diam: 2.0 cm : 30.0 mm2 LV rodrigues. diameter/BSA LV sys. diameter/BSA RVD1 (basal) (cm/m^2): 2.7 (cm/m^2): 1.6 Doppler Measurements & Calculations Ao V2 max MV E max jorge MV E/A: 2.3 PA V2 max : 171.7 cm/sec : 117.0 cm/sec Med Peak E' Jorge : 99.6 cm/sec Ao max PG MV A max jorge PA mean PG : 11.8 mmHg : 50.8 cm/sec E/E' med: 8.9 Ao mean PG MV P1/2t: 66.3 msec Lat Peak E' Jorge PA Accel Time : 0.12 sec LVOT Max Jorge E/E' lat: 6.0 : 123.3 cm/sec E/e' average: 7.4 KAILYN(I,D): 3.2 cm Pulm A Revs Dur sev ratio MV A dur: 0.09 sec MV dec time MV P1/2t max jorge Ao V2 mean LV V1 max PG : 0.23 sec : 113.9 cm/sec Ao V2 VTI: 25.9 cm LV V1 VTI MVA(P1/2t): 3.3 cm2 : 20.9 cm KAILYN(V,D): 2.8 cm2 PA V2 mean KAILYN indexed to BSA Pulm A Revs Dur - MV A : 68.9 cm/sec (cm^2/m^2): 1.6 Dur: -0.01 msec Reading Physician:PM Assessment & Plan 26 y.o. M with past medical history of IVDU heroin and methamphetamine, needle sharing, three previous OD on heroin, last heroine use 7-8 hours prior to ED admission, last meth use yesterday, admitted to ED for worsening chest and abdominal pain. Admitted for treatment of sub acute bacterial endocartitis due to IVDU, sepsis with septic emboli to lungs and kidneys. 1. MRSA bacteremia, patient seen with Dr. Pagan and his team. - Patient has history of IVDU heroin and methamphetamine, multiple septic emboli noted on CT of lungs and kidneys, indicative of right and left sided heart valve involvement - Roland criteria + 3 minor criteria: fever, septic emboli on CT, IVDU - IV Vancomycin ordered dosed per pharmacy. Ceftaroline 600 mg IV every 8 hours added today by Dr. Pagan. - Continue IV fluid resuscitation with NS @ 80 mls/hr - EFREN was performed and was reportedly negative for vegetations according to Dr. Mena. - Percocet 5 mg Q6 hours for pain - Infectious disease consult appreciated. Continue high dose of Vancomycin along with ceftaroline - Blood cultures are growing MRSA and will continue with contact and droplet precautions 2. Sepsis, acute. Present at the time of admission Patient also has septic pulmonary emboli and possibly pyelonephritis. - Likely source of infection is intravenous drug use - WBC 23, lactic acid 1.6 on admission - WBC today in 9.4 <--- 17.1 - CT scan chest, abdomen/pelvis show multiple areas of emboli - Procalcitonin, 0.49 - Continue with IV vancomycin with pharmacy to monitor 3. Urinary retention - Possibly due to septic emboli to kidneys vs UTI vs STD/STI - Urine culture: mixed urogenital liliana - UA is dip negative. Will follow clinically. Attempt to discontinue Ford in the next 1 or 2 days. 4. IVDU heroin and methamphetamine - Prior overdoses x 3, - Clonazepam 0.5 PRN for signs of withdrawal - Patient currently on scheduled methadone and clonidine with IV Ativan and IV morphine when necessary pain - This point we will place him on methadone 10 mg by mouth 3 times a day and then orchestrate a slow taper over the next week. 5. High risk behavior - IVDU, needle sharing, never screened for HIV, Hepatitis, STD/STI - HIV 1/2 screen ordered (negative) - Hepatitis panel ordered (hep C antibody positive with PCR pending) - G/C screen urine ordered Disposition: As patient's second set of blood cultures are now coming back positive patient is likely to be her for several days for IV antibiotics. VTE Prophylaxis: Sub-Q Heparin (Unfractionated) VTE Mechanical Devices: Venous Foot Pump Resuscitation Status: CPR: Attempt Resuscitation Mathew Gibson MD Oct 25, 2016 10:34
--- NOTE | 2016-10-25 15:47 | NUR ---
PICC Line: Patient went to the Picc suite to have PICC line placed at 1515. Patient has been receiving his IV fluids and antibiotics through his IJ access in his left neck. A Mask was placed on patient for his transport.
[2016-10-25] MEDS: 0.9% Sodium Chloride 1,000 ML IV SCH ×2 (16:35→21:34)
[2016-10-25] MEDS ORDERED: Vancomycin Serum Trough XX ONE (17:30)
--- NOTE | 2016-10-25 17:53 | DRSVH ---
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 FINDINGS: PICC was placed by the intravenous therapy team from the right side. Fluoroscopic spot fi lm demonstrates tip of PICC extending to the cavoatrial junction. IMPRESSION: Tip of PICC extends to the cavoatrial junction. Dictated by: Geovanny Ruiz M.D. on 10/25/2016 at 17:51 Approved by: Geovanny Ruiz M.D. on 10/25/2016 at 17:51
--- NOTE | 2016-10-25 19:21 | NUR ---
Temp: Patients Temp increased to 103.0 Tylenol was given and his temp decreased to 100.1. Patient stated that he started to sweat when his fever broke.
--- NOTE | 2016-10-25 19:37 | PCM.CONPHA ---
Subjective Vancomycin dosing Reason for Pharmacy Consult: Vancomycin Dosing Assessment/Plan Assessment/Plan Vancomycin trough is 46 drawn on schedule at 1800 today. However, the 1800 dose is documented as having been hung at 1638, which would mean the trough was drawn while the dose was infusing. To be on the safe side, I have stopped the vancomycin for now. A random trough will be drawn at 0500 10/26/16. The pharmacist on duty will evaluate the level and either resume the vancomycin or order another trough. Salma Jeter [facility] Oct 25, 2016 19:37
[2016-10-26] VITALS (10 sets, daily range): BP systolic 103–125; BP diastolic 55–70; PULSE 65–81; RESP 18–28; O2SAT 93–95
[2016-10-26] MEDS: Sodium Chloride LOK Flush 10 mL Syringe IVFLUSH SCH ×4 (00:04→23:54)
[2016-10-26] MEDS: Heparin 5,000 Unit/mL Inj SUBQ SCH ×3 (00:36→17:58)
[2016-10-26] MEDS: Ceftaroline Inj 600 MG in Dextrose 5% 250 ML IV SCH ×3 (02:33→20:45)
[2016-10-26] MEDS ORDERED: Vancomycin Serum Trough XX ONE (05:00)
[2016-10-26 05:37] LABS: BASOPHILS % (AUTO) 0.3 % (0-3); EOSINOPHILS % (AUTO) 2.1 % (0-5); Mean Corpuscular Volume 85.1 fL (81-100); NEUTROPHILS % (AUTO) 53.2 % (40-74); Platelet Count 348 bil/L (150-400)
--- NOTE | 2016-10-26 06:25 | NUR ---
Febrile Pt has been having intermittent fever, that could go up to 38.9. PRN tylenol administered. Complains of pain on his lower back and generalized body ache. PRN Vicodine administered. Will continue to monitor febrile episodes.
[2016-10-26] MEDS ORDERED: Sodium Chloride LOK Flush 10 mL Syringe IVFLUSH PRN ×2 (08:25)
[2016-10-26] MEDS: Vancomycin Dose per Pharmacist XX SCH (08:30)
[2016-10-26] MEDS: Vancomycin Inj 2,000 MG in 0.9% Sodium Chloride 500 ML IV SCH ×2 (10:00→16:00)
[2016-10-26] MEDS: 0.9% Sodium Chloride 1,000 ML IV SCH ×2 (10:03→22:34)
[2016-10-26] MEDS: cloNIDine 0.1 mg Tablet PO SCH ×3 (10:10→20:44)
--- NOTE | 2016-10-26 11:19 | PCM.PNMED ---
Subjective Date of Service Oct 26, 2016 Subjective Pt seen and examined this morning. He is AAO x 3 - He is lying comfortably in bed. - States that he is doing better than yesterday. Exam Vital Signs Vital Sign - Last Date Time Temp Pulse Resp B/P Pulse Ox O2 Delivery O2 Flow Rate FiO2 10/26/16 09:43 37.8 72 18 103/57 94 Room Air 10/23/16 15:50 2.00 Intake and Output 10/25/16 10/25/16 10/26/16 Cumulative From/Thru 15:00 23:00 07:00 10/20/16 00:16 - 10/26/16 06:58 Intake Total 1518 ml 1150 ml 2699 ml 92539 ml Output Total 1950 ml 5 ml 2250 ml 55275 ml Balance -432 ml 1145 ml 449 ml 13383 ml Intake Oral 1518 ml 1150 ml 1376 ml 9180 ml IV Total 1323 ml 51417 ml Output Urine Total 1950 ml 5 ml 2250 ml 06841 ml # Voids 1 11 # Bowel Movements 0 0 0 Exam General: Patient is in no apparent distress. HEENT: Head is atraumatic and normocephalic. Eyes: Pupils are equally round, narrowed and reactive to light and accommodation. Extraocular muscles are intact. Sclera are white, anicteric. Subconjunctival mucosa is pink. Ears and nose are unremarkable. Oropharynx: There is no mucosal lesions, there is no thrush, there is no pharyngitis. Neck: Is supple, there are no nodes, or masses or tenderness. Chest: Is negative for few basilar rales. There are no rhonchi wheezes or rubs. Heart: Rate, rhythm is regular. There is no new murmur, rub or gallop. Ever, heart tones are distant. Abdomen: Good bowel sounds are present. Abdomen is soft, nontender, no organomegaly or masses were appreciated. Extremities: Are symmetrical and well perfused. There is no edema, there is no cellulitis, no rash. Neurologic: There are no focal neurological deficits. Cranial nerves II through XII are intact. There are no sensory or motor deficits. Psychiatric: Patients mood is calm and he shows no sign of agitation. IVs and Medications Medications Reviewed: Medications were reviewed in detail Lab and Diagnostics Result Diagram: 10/26/16 0500 10/26/16 0500 X-Rays, CTs and MRIs CT scan of the brain negative for intracranial process, CT scan of abdomen and pelvis showed septic emboli to kidneys bilaterally, CT angio of chest showed multiple septic emboli to lungs bilaterally, no over vegetations of heart valves noted on CT chest 12-lead ECG ECG Interpretation: Sinus tachycardia rate 114 Time: 01:12 Interpreted by: ED physician Cardiac Echo Impressions Echocardiogram Report Name: LORI BALDWIN Study Date: 10/20/2016 Height: 70 in Hospital Exam Location: [facility] Weight: 177 lb Gender: Male BSA: 2.0 m2 : 1990 Age: 26 yrs BP: 106/59 mmHg Reason For Study: Endocarditis History: IVDA, SMOKER Ordering Physician: Performed By: Sarika Fuller [facility] Interpretation Summary The left ventricle is normal in size, wall thickness, and systolic function without any focal wall motion abnormalities. The ejection fraction is estimated to be 60-65%. The right ventricle is normal in size and function. The left atrium is mildly dilated. Right atrial size is normal. There is no obvious valvular vegetation identified on this exam. Consider EFREN if there is a high degree of clinical suspicion for endocarditis and clinically appropriate. There is no significant valvular heart disease. The aortic root is normal size. Procedure: A two-dimensional transthoracic echocardiogram with color flow and Doppler was performed. The study quality was technically adequate. There is no prior echocardiogram noted for this patient. The patient was in normal sinus rhythm during the exam. Left Ventricle: The left ventricle is normal in size, wall thickness, and systolic function without any focal wall motion abnormalities. A false chord is noted (normal variant). The ejection fraction is estimated to be 60-65%. The transmitral spectral Doppler flow pattern is normal for age. Right Ventricle: The right ventricle is normal in size and function. Atria: The left atrium is mildly dilated. Right atrial size is normal. There is no Doppler evidence for an interatrial shunt. Mitral Valve: The mitral valve is normal in structure and function. There is trace mitral regurgitation. Aortic Valve: The aortic valve is normal in structure and function. No aortic regurgitation is present. Tricuspid Valve: The tricuspid valve is normal in structure and function. Pulmonary artery pressures cannot be estimated because of the lack of a measurable TR jet velocity. Pulmonic Valve: The pulmonic valve is normal in structure and function. There is no pulmonic valvular regurgitation. There is no obvious valvular vegetation identified on this exam. Consider EFREN if there is a high degree of clinical suspicion for endocarditis and clinically appropriate. There is no significant valvular heart disease. Great Vessels: The aortic root is normal size. The ascending aorta is normal in size. The IVC has a measurement of 20 mm. The patient could not perform sniff test. Pericardium/ Pleura There is no pericardial effusion. MMode/2D Measurements & Calculations LVIDd: 5.4 cm RA long axis LVOT diam LVIDs: 3.2 cm LA A2 area: 21.8 cm FS: 39.5 % LA A4 area: 23.1 cm RA area AoV Opening EPSS: 0.47 cm LA length (vol): 6.2 cm IVSd: 0.66 cm LA vol: 68.8 ml : 18.3 cm Ao root diam LVPWd: 0.71 cm LA vol index RA vol : 59.5 ml asc Aorta RA Diam: 3.2 cm IVC diam: 2.0 cm : 30.0 mm2 LV rodrigues. diameter/BSA LV sys. diameter/BSA RVD1 (basal) (cm/m^2): 2.7 (cm/m^2): 1.6 Doppler Measurements & Calculations Ao V2 max MV E max jorge MV E/A: 2.3 PA V2 max : 171.7 cm/sec : 117.0 cm/sec Med Peak E' Jorge : 99.6 cm/sec Ao max PG MV A max jorge PA mean PG : 11.8 mmHg : 50.8 cm/sec E/E' med: 8.9 Ao mean PG MV P1/2t: 66.3 msec Lat Peak E' Jorge PA Accel Time : 0.12 sec LVOT Max Jorge E/E' lat: 6.0 : 123.3 cm/sec E/e' average: 7.4 KAILYN(I,D): 3.2 cm Pulm A Revs Dur sev ratio MV A dur: 0.09 sec MV dec time MV P1/2t max jorge Ao V2 mean LV V1 max PG : 0.23 sec : 113.9 cm/sec Ao V2 VTI: 25.9 cm LV V1 VTI MVA(P1/2t): 3.3 cm2 : 20.9 cm KAILYN(V,D): 2.8 cm2 PA V2 mean KAILYN indexed to BSA Pulm A Revs Dur - MV A : 68.9 cm/sec (cm^2/m^2): 1.6 Dur: -0.01 msec Reading Physician:PM Assessment & Plan 26 y.o. M with past medical history of IVDU heroin and methamphetamine, needle sharing, three previous OD on heroin, last heroine use 7-8 hours prior to ED admission, last meth use yesterday, admitted to ED for worsening chest and abdominal pain. Admitted for treatment of sub acute bacterial endocartitis due to IVDU, sepsis with septic emboli to lungs and kidneys. 1. MRSA bacteremia, patient seen with Dr. Pagan and his team. - Patient has history of IVDU heroin and methamphetamine, multiple septic emboli noted on CT of lungs and kidneys, indicative of right and left sided heart valve involvement - Roland criteria + 3 minor criteria: fever, septic emboli on CT, IVDU - Continue with IV vancomycin with pharmacy to monitor. Ceftaroline 600 mg IV every 8 hours added today by Dr. Pagan. - Continue IV fluid resuscitation with NS @ 80 mls/hr - EFREN was performed and was reportedly negative for vegetations according to Dr. Mena. - Percocet 5 mg Q6 hours for pain - Infectious disease consult appreciated. Continue high dose of Vancomycin along with ceftaroline - Blood cultures are growing MRSA and will continue with contact and droplet precautions - Blood cultures from 10/24 onwards: prelim results shows no growth 2. Sepsis, acute. Present at the time of admission Patient also has septic pulmonary emboli and possibly pyelonephritis. - Likely source of infection is intravenous drug use - WBC 23, lactic acid 1.6 on admission - WBC trend: 6.6 <-- 9.4 <--- 17.1 - CT scan chest, abdomen/pelvis show multiple areas of emboli - Procalcitonin, 0.49 - Continue with IV vancomycin with pharmacy to monitor 3. Urinary retention - Possibly due to septic emboli to kidneys vs UTI vs STD/STI - Urine culture: mixed urogenital liliana - UA is dip negative. Will follow clinically. Attempt to discontinue Ford in the next 1 or 2 days. 4. IVDU heroin and methamphetamine - Prior overdoses x 3, - Clonazepam 0.5 PRN for signs of withdrawal - Patient currently on scheduled methadone and clonidine with IV Ativan and IV morphine when necessary pain - This point we will place him on methadone 10 mg by mouth 3 times a day and then orchestrate a slow taper over the next week. 5. High risk behavior - IVDU, needle sharing, never screened for HIV, Hepatitis, STD/STI - HIV 1/2 screen ordered (negative) - Hepatitis panel ordered (hep C antibody positive with PCR pending) - G/C screen urine ordered Disposition: As patient's second set of blood cultures are now coming back positive patient is likely to be her for several days for IV antibiotics. VTE Prophylaxis: Sub-Q Heparin (Unfractionated) VTE Mechanical Devices: Venous Foot Pump Resuscitation Status: CPR: Attempt Resuscitation Mathew Gibson MD Oct 26, 2016 11:19
--- NOTE | 2016-10-26 19:33 | NUR ---
BM: Patient had a small green BM last night (Per patients report). Offered stool softeners and laxatives. Patient did not want stool softeners at this time. he stated that this is what his body does and then he has a good BM but if he takes laxatives he will have bad diarrhea. Patient would like to continue to drink Prune Juice and drink fluids
[2016-10-26] MEDS: oxyCODONE-Acetamin 5-325 mg Tablet PO PRN (20:44)
[2016-10-27] VITALS (8 sets, daily range): BP systolic 106–133; BP diastolic 58–70; PULSE 77–91; RESP 20–25; O2SAT 92–97
[2016-10-27] MEDS: Vancomycin Inj 2,000 MG in 0.9% Sodium Chloride 500 ML IV SCH ×3 (00:22→17:00)
[2016-10-27] MEDS: oxyCODONE-Acetamin 5-325 mg Tablet PO PRN ×2 (02:40→20:23)
[2016-10-27] MEDS: Ceftaroline Inj 600 MG in Dextrose 5% 250 ML IV SCH ×3 (02:47→20:23)
[2016-10-27 05:14] LABS: BASOPHILS % (AUTO) 0.1 % (0-3); EOSINOPHILS % (AUTO) 2.8 % (0-5); MONOCYTES % (AUTO) 12.8 % (4-12); Mean Corpuscular Hemoglobin 27.7 pg (27.0-35.0); Mean Corpuscular Volume 85.3 fL (81-100); NEUTROPHILS % (AUTO) 63.8 % (40-74); Platelet Count 387 bil/L (150-400)
[2016-10-27] MEDS: 0.9% Sodium Chloride 1,000 ML IV SCH (06:12)
--- NOTE | 2016-10-27 06:21 | NUR ---
Febrile Pt has been febrile overnight. Q4 Acetaminophen administered regularly and Percocet q6. Ice packs provided for temperature control. Pt denies chest pain, sob, n/v or abd discomfort. ABx administered as ordered, IVF running on 80mL/hr. Will continue to monitor.
[2016-10-27] MEDS ORDERED: Vancomycin Serum Trough XX ONE (07:30)
[2016-10-27] MEDS: Vancomycin Dose per Pharmacist XX SCH (08:30)
[2016-10-27] MEDS: Sodium Chloride LOK Flush 10 mL Syringe IVFLUSH SCH ×2 (08:55→17:00)
[2016-10-27] MEDS: cloNIDine 0.1 mg Tablet PO SCH ×3 (08:56→20:23)
--- NOTE | 2016-10-27 14:08 | PCM.PHAPRO ---
Progress Vancomycin dosing VANCOMYCIN DOSING PER PHARMACY Dose: 2000mg every 8 hrs Trough 17 @0730 this AM (10/27/16) Plan: Renal fx stable. Will continue current dose and update dose scheduling based on recent administration schedule. Pharmacy will continue to monitor. Thanks Gerson Dawson, PharmD Gerson Dawson Oct 27, 2016 14:07
--- NOTE | 2016-10-27 14:26 | NUR ---
Social Work: Continued d/c planning Data: EMR reviewed. Pt is on day 7 of hospitalization for spsis per H&P. Pt to remain in hospital for fdc IVABX for 4-6 weeks at the hospital due to IV drug use. CDP from [place] to meet with pt regarding CD use. SW will continue to follow. Assessment: Pt who is independent at baseline, IV drug user. Plan: Pt will discharge home when medically stable, CDP from [place] to meet with pt regarding CD use. SW will continue to follow. KINGA Naranjo
--- NOTE | 2016-10-27 17:28 | NUR ---
Pt off floor for XRAY via WC at 1728
--- NOTE | 2016-10-27 17:53 | PCM.PNMED ---
Subjective Date of Service Oct 27, 2016 Subjective denies any new issues/complaints. no n/v/diarrhea Exam Vital Signs Vital Sign - Last Date Time Temp Pulse Resp B/P Pulse Ox O2 Delivery O2 Flow Rate FiO2 10/27/16 17:47 39.5 86 20 106/61 92 Room Air 10/23/16 15:50 2.00 Intake and Output 10/26/16 10/26/16 10/27/16 Cumulative From/Thru 15:00 23:00 07:00 10/20/16 00:16 - 10/27/16 06:14 Intake Total 3125 ml 1973 ml 36250 ml Output Total 3275 ml 89074 ml Balance -150 ml 1973 ml 77214 ml Intake Oral 1700 ml 71585 ml IV Total 1425 ml 1973 ml 03014 ml Output Urine Total 3275 ml 03568 ml # Voids 11 # Bowel Movements 1 1 General: Alert, Cooperative, No Acute Distress Eyes: Scleral Anicteric Mouth: Mucous Membr Moist/[place] Neck: Supple Chest & Lungs: Chest Wall Normal, Clear to auscultation & percussion Cardiovascular: Regular Rate/Rhythm Abdomen: Non-tender, Non-distended, Normoactive bowel tones, Soft Extremities: No cyanosis/clubbing/edma bilat Neurological: Grossly Neurologically Intact, Normal Speech IVs and Medications Medications Reviewed: Medications were reviewed in detail Lab and Diagnostics Result Diagram: 10/27/16 0500 10/27/16 0500 X-Rays, CTs and MRIs CT scan of the brain negative for intracranial process, CT scan of abdomen and pelvis showed septic emboli to kidneys bilaterally, CT angio of chest showed multiple septic emboli to lungs bilaterally, no over vegetations of heart valves noted on CT chest 12-lead ECG ECG Interpretation: Sinus tachycardia rate 114 Time: 01:12 Interpreted by: ED physician Cardiac Echo Impressions Echocardiogram Report Name: LORI BALDWIN Study Date: 10/20/2016 Height: 70 in Hospital Exam Location: [facility] Weight: 177 lb Gender: Male BSA: 2.0 m2 : 1990 Age: 26 yrs BP: 106/59 mmHg Reason For Study: Endocarditis History: IVDA, SMOKER Ordering Physician: Performed By: Sarika ROEIST [facility] Interpretation Summary The left ventricle is normal in size, wall thickness, and systolic function without any focal wall motion abnormalities. The ejection fraction is estimated to be 60-65%. The right ventricle is normal in size and function. The left atrium is mildly dilated. Right atrial size is normal. There is no obvious valvular vegetation identified on this exam. Consider EFREN if there is a high degree of clinical suspicion for endocarditis and clinically appropriate. There is no significant valvular heart disease. The aortic root is normal size. Procedure: A two-dimensional transthoracic echocardiogram with color flow and Doppler was performed. The study quality was technically adequate. There is no prior echocardiogram noted for this patient. The patient was in normal sinus rhythm during the exam. Left Ventricle: The left ventricle is normal in size, wall thickness, and systolic function without any focal wall motion abnormalities. A false chord is noted (normal variant). The ejection fraction is estimated to be 60-65%. The transmitral spectral Doppler flow pattern is normal for age. Right Ventricle: The right ventricle is normal in size and function. Atria: The left atrium is mildly dilated. Right atrial size is normal. There is no Doppler evidence for an interatrial shunt. Mitral Valve: The mitral valve is normal in structure and function. There is trace mitral regurgitation. Aortic Valve: The aortic valve is normal in structure and function. No aortic regurgitation is present. Tricuspid Valve: The tricuspid valve is normal in structure and function. Pulmonary artery pressures cannot be estimated because of the lack of a measurable TR jet velocity. Pulmonic Valve: The pulmonic valve is normal in structure and function. There is no pulmonic valvular regurgitation. There is no obvious valvular vegetation identified on this exam. Consider EFREN if there is a high degree of clinical suspicion for endocarditis and clinically appropriate. There is no significant valvular heart disease. Great Vessels: The aortic root is normal size. The ascending aorta is normal in size. The IVC has a measurement of 20 mm. The patient could not perform sniff test. Pericardium/ Pleura There is no pericardial effusion. MMode/2D Measurements & Calculations LVIDd: 5.4 cm RA long axis LVOT diam LVIDs: 3.2 cm LA A2 area: 21.8 cm FS: 39.5 % LA A4 area: 23.1 cm RA area AoV Opening EPSS: 0.47 cm LA length (vol): 6.2 cm IVSd: 0.66 cm LA vol: 68.8 ml : 18.3 cm Ao root diam LVPWd: 0.71 cm LA vol index RA vol : 59.5 ml asc Aorta RA Diam: 3.2 cm IVC diam: 2.0 cm : 30.0 mm2 LV rodrigues. diameter/BSA LV sys. diameter/BSA RVD1 (basal) (cm/m^2): 2.7 (cm/m^2): 1.6 Doppler Measurements & Calculations Ao V2 max MV E max jorge MV E/A: 2.3 PA V2 max : 171.7 cm/sec : 117.0 cm/sec Med Peak E' Jorge : 99.6 cm/sec Ao max PG MV A max jorge PA mean PG : 11.8 mmHg : 50.8 cm/sec E/E' med: 8.9 Ao mean PG MV P1/2t: 66.3 msec Lat Peak E' Jorge PA Accel Time : 0.12 sec LVOT Max Jorge E/E' lat: 6.0 : 123.3 cm/sec E/e' average: 7.4 KAILYN(I,D): 3.2 cm Pulm A Revs Dur sev ratio MV A dur: 0.09 sec MV dec time MV P1/2t max jorge Ao V2 mean LV V1 max PG : 0.23 sec : 113.9 cm/sec Ao V2 VTI: 25.9 cm LV V1 VTI MVA(P1/2t): 3.3 cm2 : 20.9 cm KAILYN(V,D): 2.8 cm2 PA V2 mean KAILYN indexed to BSA Pulm A Revs Dur - MV A : 68.9 cm/sec (cm^2/m^2): 1.6 Dur: -0.01 msec Reading Physician:PM Assessment & Plan 26 y.o. M with past medical history of IVDU heroin and methamphetamine, needle sharing, three previous OD on heroin, last heroine use 7-8 hours prior to ED admission, last meth use yesterday, admitted to ED for worsening chest and abdominal pain. # Acute MRSA bacteremia. present on admission - Patient has history of IVDU heroin and methamphetamine, multiple septic emboli noted on CT of lungs and kidneys, indicative of right and left sided heart valve involvement - appreciate ID consult. will f/u w/ recs - Continue with IV vancomycin and Ceftaroline per ID - continue to check blood cultures while still febrile # Sepsis, acute. Present at the time of admission Patient also has septic pulmonary emboli and possibly pyelonephritis. - Likely source of infection is intravenous drug use - WBC 23, lactic acid 1.6 on admission - CT scan chest, abdomen/pelvis show multiple areas of emboli - Abx as noted above # Acute Urinary retention - Possibly due to septic emboli to kidneys vs UTI vs STD/STI - Urine culture: mixed urogenital liliana - UA is dip negative. Will follow clinically. # IVDU heroin and methamphetamine - Prior overdoses x 3, - Clonazepam 0.5 PRN for signs of withdrawal - Patient currently on scheduled methadone and clonidine with IV Ativan and IV morphine when necessary pain - orchestrate a slow taper over the next week. # High risk behavior - IVDU, needle sharing, never screened for HIV, Hepatitis, STD/STI - HIV 1/2 screen ordered (negative) - Hepatitis panel ordered (hep C antibody positive with PCR pending) - G/C screen urine ordered Disposition: As patient's second set of blood cultures are now coming back positive patient is likely to be her for several days for IV antibiotics. VTE Prophylaxis: Sub-Q Heparin (Unfractionated) VTE Mechanical Devices: Intermittant Pneumatic CD Resuscitation Status: CPR: Attempt Resuscitation Time spent 35 min Anurag Rivers Oct 27, 2016 17:53
--- NOTE | 2016-10-27 18:33 | NUR ---
Dayshift/Fever Pt lethargic, on bedrest for most, Up at bedside to use urinal. Pt temp varied during the day from 38.1 - 39.5. Pt is hot to touch, diaphoretic, and reports mild weakness on occasion. Given PRN Tylenol and MD arellano. Continuing to monitor, encouraging fluids, Popsicles to keep temp down. Pt cooperative with care.
--- NOTE | 2016-10-27 18:55 | PROG NOTE ---
[address] [address] PROGRESS NOTE PATIENT: LORI BALDWIN : 1990 MR#: [id number] ADMIT: 10/20/2016 JOB ID: [id number] DATE: 10/27/2016 REASON FOR FOLLOWUP: MRSA endocarditis in an IV drug user. INTERVAL HISTORY: Recall this is our 26-year-old IV drug user with high-grade MRSA bacteremia and who meets Roland's criteria for the diagnosis of endocarditis even though we do not have EFREN confirmation of a valvular lesion. Over the weekend, the patient reports he is gradually feeling better and better in that most of his somatic symptoms are resolving, but he continues to have intermittent high fevers and chills. He notes that his back pain is gradually improving. He remains somewhat short of breath, especially with exertion, and sometimes has some dry cough. With deep inspiration, he has pain between the shoulder blades. No GI symptoms such as nausea, vomiting, or diarrhea. He notes he has excellent strength and sensation in his extremities, and that he has no problems with his bowel or bladder. PHYSICAL EXAMINATION: Reveals a very febrile young man, temperature 40 degrees axillary early this morning, now 39.5, pulse 91, respiratory rate 20, blood pressure 128/70, he is saturating well on room air. He is awake, alert, and looks very comfortable despite his high fevers. He has no conjunctival hemorrhages or conjunctivitis. Oral cavity is normal. Lungs with decreased breath sounds at the right base with a few crackles there, otherwise clear. Cardiac tones without significant murmur. Abdomen soft and nontender. He has some mild tenderness around the mid thoracic spine, but it seems better than it has been recently. He has no peripheral stigmata of endocarditis. He has excellent lower extremity strength and normal lower extremity sensation. LABORATORIES: Include a white count which has come all the way down from 23,000 to 7000 and a basically normal diff at this point. His creatinine is 0.85 which is up from 0.6 as a baseline roughly. His LFTs are normal. Albumin 2.5. Vanco trough this morning is 17 which is right where we like it. Rheumatoid factor was hepatitis C positive with hep C viral load pending. His blood cultures were positive up to and including the . Since then, they have been negative, so his antibiotics will need to go six weeks from October 24 which will take us through December 04. We do not have any new imaging of interest in this patient, though we did have a PICC line installed over the weekend when his blood cultures finally turned negative. Recall that our initial imaging included bilateral pulmonary infiltrates and nodules which we felt were like septic emboli as well as bilateral pyelonephritis which we thought was also likely secondary to endocarditis. IMPRESSION: This patient overall is much improved as compared to when he came in, but he continues to have high fevers, which is a concern. We finally have good control though of his blood cultures which have now been repetitively negative for a few days and we have normal white count. The nature of his ongoing high fevers is unclear. I have been concerned since the beginning that he may have a spine infection because of his back pain, but we have been unable to get an MRI scan as the patient basically refused to go into the MRI scanner while conscious. A CT scan was discussed today with the Radiology team by our resident, but they thought it would be much inferior in terms of detecting vertebral and osteo and spinal epidural abscess as compared to an MRI which is, of course, the test of choice. Fortunately, the patient has no neuro deficits, has excellent strength and no bowel or bladder problems at this juncture. It is also possible, of course, that his fevers are coming from a pulmonary source and he certainly could be developing a lung abscess given the probably extensive seeding of his lungs that has occurred. RECOMMENDATIONS: 1. Will continue with our dual antibiotics at this point with Ceftaroline and vancomycin. 2. A repeat chest x-ray, PA and lateral, will be ordered. 3. If the patient has worsening back pain, we will go ahead and get a CT with and without contrast of the back and then if we have to will attempt to somehow get an MRI scan of his back. 4. Will continue to closely follow this very complex patient with you and hope that during the course of the week his fevers resolve.
--- NOTE | 2016-10-27 19:46 | DRSVH ---
PROCEDURE: X-RAY CHEST, TWO VIEWS ([id number]) INDICATIONS: pleuritic chest pain TECHNIQUE: 2 views of the chest were acquired. COMPARISON: [facility], CR, XR CHEST 1VW (PORTABLE), 10/20/2016, 1:10. FINDINGS: Surgical changes and devices: None. Lungs and pleura: There is a mild right pleural effusion. Patchy opacity is present in the left base as well as blunting of the left costophrenic angle. Mediastinum: Mediastinal contours are normal. Heart size is normal. Bones and chest wall: No suspicious bony abnormalities. Soft tissues appear unremarkable. IMPRESSION: Right pleural effusion as well as development of left basilar opacity and trace blunting of the left costophrenic angle, demonstrating interval worsening compared to prior exam. Interval in creased patchy opacity within the left base is suspicious for pneumonia. Dictated by: Rere Mina M.D. on 10/27/2016 at 19:43 Approved by: Rere Mina M.D. on 10/27/2016 at 19:45
[2016-10-27] MEDS: Ondansetron 2 mg/mL 2 mL Inj IVPUSH PRN (22:15)
--- NOTE | 2016-10-27 22:41 | NUR ---
Withdrawal Pt having withdrawal symptoms. Complains of feeling nauseated and about to throw up. Noted tremors and shaking on assessment. Complains of back pain 04/12 and a fever of 102.2F. Administered Zofran, Lorazepam, Morphine, Acetaminophen to relieve withdrawal symptoms. Will continue to monitor. Addendum: 10/28/16 at 0006 by JACKIE KNIGHT RN Withdrawal symptoms relieved. Still having Fever, but pt states he's feeling much better. Addendum: 10/28/16 at 0632 by JACKIE KNIGHT RN 0600 pt having a fever of 105.2. Tylenol, percocet administered. Continuing to monitor.
[2016-10-28] VITALS (9 sets, daily range): BP systolic 104–122; BP diastolic 56–70; PULSE 71–94; RESP 14–22; O2SAT 92–98
[2016-10-28] MEDS: 0.9% Sodium Chloride 1,000 ML IV SCH ×2 (01:06→12:04)
[2016-10-28] MEDS: Vancomycin Inj 2,000 MG in 0.9% Sodium Chloride 500 ML IV SCH ×3 (01:10→16:18)
[2016-10-28] MEDS: Sodium Chloride LOK Flush 10 mL Syringe IVFLUSH SCH ×3 (01:10→16:19)
[2016-10-28] MEDS: Ceftaroline Inj 600 MG in Dextrose 5% 250 ML IV SCH ×3 (03:17→20:42)
[2016-10-28 05:24] LABS: BASOPHILS % (AUTO) 0.2 % (0-3); EOSINOPHILS % (AUTO) 1.8 % (0-5); Mean Corpuscular Hemoglobin 27.9 pg (27.0-35.0); Mean Corpuscular Volume 84.2 fL (81-100); NEUTROPHILS % (AUTO) 66.1 % (40-74); Platelet Count 336 bil/L (150-400)
[2016-10-28] MEDS: oxyCODONE-Acetamin 5-325 mg Tablet PO PRN ×2 (06:15→14:25)
[2016-10-28] MEDS: cloNIDine 0.1 mg Tablet PO SCH ×3 (07:52→20:30)
[2016-10-28] MEDS: Ondansetron 2 mg/mL 2 mL Inj IVPUSH PRN (07:53)
[2016-10-28] MEDS: Vancomycin Dose per Pharmacist XX SCH (08:30)
--- NOTE | 2016-10-28 12:31 | PROG NOTE ---
[address] [address] PROGRESS NOTE PATIENT: LORI BALDWIN : 1990 MR#: [id number] ADMIT: 10/20/2016 JOB ID: [id number] DATE: 10/28/2016 REASON FOR FOLLOWUP: High-grade MRSA bacteremia with bilateral pulmonary infiltrates, bilateral pyelonephritis, and continued fevers in an IV drug user. INTERVAL HISTORY: The patient continues to spike extraordinary fevers as high as 40.7 degrees earlier this morning. These are associated with some chills but no real systemic toxicity, according to the patient. He denies significant headache, visual change, or sore throat. He states when he takes a big breath or cough, he has left chest and some back pain. He did not use much in the way of right-sided pleuritic chest pain, however. He has no nausea, vomiting, diarrhea, or dysuria. He has had no issues with bowel or bladder function. He reports his lower extremity strength is good, and he is able to walk without difficulty, though he is very tired. PHYSICAL EXAMINATION: Reveals a gentleman with 38.3 degree fever right now, as high as 40.7 earlier this morning. Pulse 78, respiratory rate 18, blood pressure 111/63, saturating well on room air. Examination of the eyes reveals no conjunctival changes. Oral cavity is benign. Mental status is clear. Neck is supple. His back is now nontender. His lungs are notable for dramatically decreased breath sounds on the right and a few crackles at the left base. His cardiac tones with a 1/6 murmur which has come and gone throughout his hospital stay. His abdomen is essentially benign. Lower extremity strength is excellent and sensory exam normal. LABORATORIES: Include a white count of 6000 with completely normal diff. Creatinine 0.75. LFTs totally normal. Hep C viral load has come back at 35,600. Hep C genotype is still pending. HIV is negative. RPR is negative. Rheumatoid factor strongly positive. Micro: Recall that we had many blood cultures up through and including October 22. Since then, we have six sets of blood cultures with 12 bottles all negative. Our chest x-ray done today shows an increasing right pleural effusion, as well as some patchy opacity at the left base with blunting of the left costophrenic angle. IMPRESSION: This is a difficult case of an intravenous drug using gentleman who presents with high-grade methicillin-resistant Staphylococcus aureus bacteremia. I was almost certain he had endocarditis when he came in, but his transesophageal echocardiogram was negative. He nonetheless meets [facility] criteria for endocarditis based on one major and three minor criteria. I have also been very concerned about the possibility of spinal epidural abscess, but we have been unable to do an MRI scan, as the patient adamantly refuses. Fortunately, his back pain, which had been quite prominent, has resolved and his neurologic exam has always been normal. We are now left with extremely high fevers of unknown source in a patient who was recently bacteremic. Some of this could be due to narcotic withdrawal, but the fevers seem extreme for that. I am concerned that he could be forming an empyema, lung abscess, or perhaps a liver or spleen abscess secondary to his high-grade methicillin-resistant Staphylococcus aureus bacteremia, and I think we need to repeat the CT scans we had done earlier. I also wish we could do an MRI scan of the back, but in view of the fact it is no longer tender, I am not certain how important that is at this point. The patient now has established diagnosis of active hepatitis C as well and will need to be addressed down the line. I discussed the implications of this with the patient and a female executive pilot who is sleeping in the extra bed in his room. RECOMMENDATIONS: 1. Will continue with our dual antibiotics at this point, using ceftaroline and vancomycin. I hope to narrow or streamline this very soon, but I am still concerned about whatever is going on with these high fevers. 2. CT scan chest, abdomen, and pelvis with contrast has been ordered. 3. If patient's back pain should recur or worsen, we would need an MRI scan of the spine with presumably some sort of aggressive sedation so the patient could tolerate it. 4. The total duration of antibiotics here will be six weeks from the negative blood cultures which will take us well into December before we are concluded. Given his ongoing IV drug use, we will need to keep him here in the hospital for the entire duration.
--- NOTE | 2016-10-28 15:28 | NUR ---
Withdrawal Symptoms/Pain Pt reporting back pain 03/12. Treated with PRN Oxycodone. Post assessment reported no pain. Reported nausea, given PRN Zofran. Spoke with Hospitalist who noted pt could possibly have side effects from Zofran- shivering, sweating and confusion. Will use Reglan next opportunity and further evaluate symptoms/difference. Pt has fever/withdrawal symptoms of with moderate diaphoresis and shivering/tremors. Treated pt with PRN clonazepam. Post assessment showed relief from shivering/tremors and diaphoresis is reduced. Continuing to care and assess symptoms.
--- NOTE | 2016-10-28 16:52 | NUR ---
Pt off floor for CT scan.
--- NOTE | 2016-10-28 17:31 | PCM.PNMED ---
Subjective Date of Service Oct 28, 2016 Subjective denies any new issues/complaints. Exam Vital Signs Vital Sign - Last Date Time Temp Pulse Resp B/P Pulse Ox O2 Delivery O2 Flow Rate FiO2 10/28/16 16:04 39.0 10/28/16 13:49 92 18 109/66 98 Room Air 10/23/16 15:50 2.00 Intake and Output 10/27/16 10/27/16 10/28/16 Cumulative From/Thru 15:00 23:00 07:00 10/20/16 00:16 - 10/28/16 00:30 Intake Total 436 ml 2936 ml 40536 ml Output Total 1250 ml 1350 ml 97779 ml Balance -814 ml 1586 ml 88220 ml Intake Oral 436 ml 926 ml 70489 ml IV Total 2010 ml 97606 ml Output Urine Total 1250 ml 1350 ml 34964 ml # Voids 11 # Bowel Movements 0 0 1 Exam General: Alert, Cooperative, No Acute Distress Eyes: Scleral Anicteric Mouth: Mucous Membr Moist/[place] Neck: Supple Chest & Lungs: Chest Wall Normal, Clear to auscultation bilat Cardiovascular: Regular Rate/Rhythm Abdomen: Non-tender, Non-distended, Normoactive bowel tones, Soft Extremities: No cyanosis/clubbing/edema bilat Neurological: Grossly Neurologically Intact, Normal Speech IVs and Medications Medications Reviewed: Medications were reviewed in detail Lab and Diagnostics Result Diagram: 10/28/16 0500 10/28/16 0500 X-Rays, CTs and MRIs CT scan of the brain negative for intracranial process, CT scan of abdomen and pelvis showed septic emboli to kidneys bilaterally, CT angio of chest showed multiple septic emboli to lungs bilaterally, no over vegetations of heart valves noted on CT chest 12-lead ECG ECG Interpretation: Sinus tachycardia rate 114 Time: 01:12 Interpreted by: ED physician Cardiac Echo Impressions Echocardiogram Report Name: LORI BALDWIN Study Date: 10/20/2016 Height: 70 in Hospital Exam Location: [facility] Weight: 177 lb Gender: Male BSA: 2.0 m2 : 1990 Age: 26 yrs BP: 106/59 mmHg Reason For Study: Endocarditis History: IVDA, SMOKER Ordering Physician: Performed By: Sarika Fuller [facility] Interpretation Summary The left ventricle is normal in size, wall thickness, and systolic function without any focal wall motion abnormalities. The ejection fraction is estimated to be 60-65%. The right ventricle is normal in size and function. The left atrium is mildly dilated. Right atrial size is normal. There is no obvious valvular vegetation identified on this exam. Consider EFREN if there is a high degree of clinical suspicion for endocarditis and clinically appropriate. There is no significant valvular heart disease. The aortic root is normal size. Procedure: A two-dimensional transthoracic echocardiogram with color flow and Doppler was performed. The study quality was technically adequate. There is no prior echocardiogram noted for this patient. The patient was in normal sinus rhythm during the exam. Left Ventricle: The left ventricle is normal in size, wall thickness, and systolic function without any focal wall motion abnormalities. A false chord is noted (normal variant). The ejection fraction is estimated to be 60-65%. The transmitral spectral Doppler flow pattern is normal for age. Right Ventricle: The right ventricle is normal in size and function. Atria: The left atrium is mildly dilated. Right atrial size is normal. There is no Doppler evidence for an interatrial shunt. Mitral Valve: The mitral valve is normal in structure and function. There is trace mitral regurgitation. Aortic Valve: The aortic valve is normal in structure and function. No aortic regurgitation is present. Tricuspid Valve: The tricuspid valve is normal in structure and function. Pulmonary artery pressures cannot be estimated because of the lack of a measurable TR jet velocity. Pulmonic Valve: The pulmonic valve is normal in structure and function. There is no pulmonic valvular regurgitation. There is no obvious valvular vegetation identified on this exam. Consider EFREN if there is a high degree of clinical suspicion for endocarditis and clinically appropriate. There is no significant valvular heart disease. Great Vessels: The aortic root is normal size. The ascending aorta is normal in size. The IVC has a measurement of 20 mm. The patient could not perform sniff test. Pericardium/ Pleura There is no pericardial effusion. MMode/2D Measurements & Calculations LVIDd: 5.4 cm RA long axis LVOT diam LVIDs: 3.2 cm LA A2 area: 21.8 cm FS: 39.5 % LA A4 area: 23.1 cm RA area AoV Opening EPSS: 0.47 cm LA length (vol): 6.2 cm IVSd: 0.66 cm LA vol: 68.8 ml : 18.3 cm Ao root diam LVPWd: 0.71 cm LA vol index RA vol : 59.5 ml asc Aorta RA Diam: 3.2 cm IVC diam: 2.0 cm : 30.0 mm2 LV rodrigues. diameter/BSA LV sys. diameter/BSA RVD1 (basal) (cm/m^2): 2.7 (cm/m^2): 1.6 Doppler Measurements & Calculations Ao V2 max MV E max jorge MV E/A: 2.3 PA V2 max : 171.7 cm/sec : 117.0 cm/sec Med Peak E' Jorge : 99.6 cm/sec Ao max PG MV A max jorge PA mean PG : 11.8 mmHg : 50.8 cm/sec E/E' med: 8.9 Ao mean PG MV P1/2t: 66.3 msec Lat Peak E' Jorge PA Accel Time : 0.12 sec LVOT Max Jorge E/E' lat: 6.0 : 123.3 cm/sec E/e' average: 7.4 KAILYN(I,D): 3.2 cm Pulm A Revs Dur sev ratio MV A dur: 0.09 sec MV dec time MV P1/2t max jorge Ao V2 mean LV V1 max PG : 0.23 sec : 113.9 cm/sec Ao V2 VTI: 25.9 cm LV V1 VTI MVA(P1/2t): 3.3 cm2 : 20.9 cm KAILYN(V,D): 2.8 cm2 PA V2 mean KAILYN indexed to BSA Pulm A Revs Dur - MV A : 68.9 cm/sec (cm^2/m^2): 1.6 Dur: -0.01 msec Reading Physician:PM Assessment & Plan 26 y.o. M with past medical history of IVDU heroin and methamphetamine, needle sharing, three previous OD on heroin, last heroine use 7-8 hours prior to ED admission, last meth use yesterday, admitted to ED for worsening chest and abdominal pain. # Acute MRSA bacteremia. present on admission - Patient has history of IVDU heroin and methamphetamine, multiple septic emboli noted on CT of lungs and kidneys, indicative of right and left sided heart valve involvement - appreciate ID consult. will f/u w/ recs - Continue with IV vancomycin and Ceftaroline per ID - continue to check blood cultures while still febrile - f/u repeat CT scan # Sepsis, acute. Present at the time of admission Patient also has septic pulmonary emboli and possibly pyelonephritis. - Likely source of infection is intravenous drug use - WBC 23, lactic acid 1.6 on admission - CT scan chest, abdomen/pelvis show multiple areas of emboli - f/u repeat CT - Abx as noted above # Acute Urinary retention - Possibly due to septic emboli to kidneys vs UTI vs STD/STI - Urine culture: mixed urogenital liliana - UA is dip negative. Will follow clinically. # IVDU heroin and methamphetamine - Prior overdoses x 3, - Clonazepam 0.5 PRN for signs of withdrawal - Patient currently on scheduled methadone and clonidine with IV Ativan and IV morphine when necessary pain - orchestrate a slow taper over the next week. # High risk behavior - IVDU, needle sharing, never screened for HIV, Hepatitis, STD/STI - HIV 1/2 screen ordered (negative) - Hepatitis panel ordered (hep C antibody positive with PCR pending) - G/C screen urine ordered Disposition: As patient's second set of blood cultures are now coming back positive patient is likely to be her for several days for IV antibiotics. VTE Prophylaxis: Sub-Q Heparin (Unfractionated) VTE Mechanical Devices: Intermittant Pneumatic CD Resuscitation Status: CPR: Attempt Resuscitation Anurag Rivers Oct 28, 2016 17:31
--- NOTE | 2016-10-28 18:37 | DRSVH ---
PROCEDURE: CT CHEST, ABDOMEN AND PELVIS [facility] CONTRAST ([id number]) INDICATIONS: 41 deg fever in MRSA bacteremia-Abscess or empyema TECHNIQUE: After the administration of oral and intravenous contrast, 5 mm thick sections acquired from the lung apices to the symphysis. 5 mm coronal and sagittal reformats were performed, with additional 7 mm c oronal MIP reformats through the lungs. For radiation dose reduction, the following was used: autom ated exposure control, adjustment of mA and/or kV according to patient size. COMPARISON: [facility], CT, CT ANGIO CHEST PE, 10/20/2016, 2:18. [facility], CT, CT ABD PELVIS W CON, 10/20/2016, 2:18. FINDINGS: Image quality: Excellent. CHEST: Lungs and pleura: There are are bilateral pleural effusions, moderate on the right and small the lef t. There is consolidation within the bilateral lower lobes and inferior left lingula with air bronch ograms demonstrated as well as small cavitary foci in the right lower lobe and left lingula. There a re a few small bony nodules also demonstrated in the left lower lobe including a subpleural nodule me asuring up to 9 mm in the left lower lobe on image 24. These appear similar compared to the prior st udy. Mediastinum: Heart size is normal. No pericardial effusion. There is a right upper extremity PICC line extending into the superior vena cava at the cavoatrial junction. Thoracic aorta and central pu lmonary arteries are normal in size. There are a few mildly prominent mediastinal lymph nodes measur ing up to 1 cm short axis which are nonspecific but likely reactive. Esophagus is normal in caliber. No hiatal hernia. Chest wall: No axillary or supraclavicular adenopathy by size criteria. There are scattered subcent imeter axillary lymph nodes bilaterally which are likely reactive. Thyroid gland demonstrates no dis crete nodules. ABDOMEN: Solid organs: No focal hepatic lesions. The spleen is normal in size. There are a few gallstones a re demonstrated in the gallbladder. There is mild gallbladder wall thickening and mucosal enhancemen t. Biliary system is non dilated. Pancreas enhances normally. No adrenal nodules. The kidneys dem onstrate no hydronephrosis. Previously visualized areas of heterogeneous enhancement in the kidneys bilaterally have decreased in prominence compared to the prior study. There is also decrease in size of a small left perinephric collection laterally measuring approximately 1.5 cm compared to 2.6 cm p reviously. Peritoneum and bowel: There is mild fluid distention of a few small bowel loops with air-fluid leve ls suggestive of an ileus or gastroenteritis. No evidence of obstruction. There is moderate colonic stool distention suggesting constipation. The appendix is normal in appearance. No intraperitoneal abscess identified. No free fluid or air. Nodes and vessels: No retroperitoneal or mesenteric adenopathy by size criteria. Aorta and inferior vena cava are normal in size. Miscellaneous: No ventral hernias. PELVIS: Genitourinary: Bladder wall thickness is normal. Miscellaneous: No inguinal hernias or adenopathy. Bones: No suspicious bony lesions. No vertebral body compression fractures. IMPRESSION: 1. Bilateral consolidation in the lungs consistent with pneumonia with areas of cavitation suspiciou s for developing pulmonary abscesses in the right lower lobe and left lingula. 2. Bilateral pleural effusions, moderate on the right and small the left. 3. Decreased prominence of heterogeneous renal enhancement on the prior study compatible with pyelon ephritis. There is also decrease in size of a small left perinephric collection consistent with a sm all perinephric abscess. 4. Cholelithiasis with mild gallbladder wall thickening. If there is clinical suspicion for cholecy stitis, recommend further evaluation with ultrasound. Dictated by: Geovanny Ruiz M.D. on 10/28/2016 at 18:22 Approved by: Geovanny Ruiz M.D. on 10/28/2016 at 18:31
[2016-10-29] VITALS (7 sets, daily range): BP systolic 103–120; BP diastolic 52–82; PULSE 71–99; RESP 16–18; O2SAT 90–97
[2016-10-29] MEDS: 0.9% Sodium Chloride 1,000 ML IV SCH ×3 (00:10→21:32)
[2016-10-29] MEDS: Vancomycin Inj 2,000 MG in 0.9% Sodium Chloride 500 ML IV SCH ×3 (00:10→17:12)
[2016-10-29] MEDS: Sodium Chloride LOK Flush 10 mL Syringe IVFLUSH SCH ×3 (00:35→17:13)
[2016-10-29] MEDS: Ceftaroline Inj 600 MG in Dextrose 5% 250 ML IV SCH ×3 (02:53→21:26)
[2016-10-29] MEDS: oxyCODONE-Acetamin 5-325 mg Tablet PO PRN (04:04)
[2016-10-29] MEDS: Ondansetron 2 mg/mL 2 mL Inj IVPUSH PRN (04:13)
[2016-10-29 05:46] LABS: BASOPHILS % (AUTO) 0.2 % (0-3); EOSINOPHILS % (AUTO) 2.4 % (0-5); MONOCYTES % (AUTO) 6.1 % (4-12); Mean Corpuscular Hemoglobin 27.2 pg (27.0-35.0); Mean Corpuscular Volume 83.6 fL (81-100); NEUTROPHILS % (AUTO) 74.1 % (40-74); Platelet Count 275 bil/L (150-400)
--- NOTE | 2016-10-29 06:34 | NUR ---
Fever/Pain Pt still having intermittent Pain. Complains of 9/10 pain on his back. Pt describes the pain as intermittent, sharp and it comes and goes, aggraviates when he moves, cough, or exert effort. Still febrile and having tachypneic episodes. Administered PRN Percocet, Tylenol, Lorazepam, Zofran, Morphine for relief of symptoms. Will continue to monitor.
[2016-10-29] MEDS ORDERED: Vancomycin Serum Trough XX ONE (08:30)
[2016-10-29] MEDS: cloNIDine 0.1 mg Tablet PO SCH ×3 (09:58→21:34)
--- NOTE | 2016-10-29 11:13 | PROG NOTE ---
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 INTERVAL HISTORY: The patient is again very lethargic this morning. He states he is not sleeping well. He notes he has right pleuritic chest pain and also some right-sided abdominal pain. Temperatures have been as high as 39.4 during the night. Pulse 80, respiratory rate 16, blood pressure 103/56. He is saturating well on room air but very lethargic and gives very short answers to questions. He notes that he has continued fever as well but does not feel all that bad except for the pleuritic and abdominal pain. He has no more significant cough he does have the abdominal pain without diarrhea. No dysuria, urgency, or frequency as noted. He is able to ambulate. Back pain is improving. PHYSICAL EXAMINATION: Temperature to 39.4 last night, pulse 80, respiratory rate 16, blood pressure 103/55, saturating well on room air. As mentioned, his head is unremarkable. Eyes without conjunctival change. Oral cavity negative. Lungs with dramatically decreased breath sounds and dullness at the right base. Cardiac tones without significant murmur. Cardiac with a 1/6 murmur, left lower sternal border. Abdomen with some mild right upper quadrant tenderness. No new skin rash noted. LABORATORIES: Include white count 4600 which continues to be normal, obviously. Creatinine 0.83. His LFTs completely normal. Albumin 2.5. Urinalysis without white cells. Vancomycin trough is a little low at 13.5 today. Hep C viral load was positive, genotype pending. Repeat blood cultures were positive until the , negative from the on. IMAGING: Includes a CT chest, abdomen, and pelvis we ordered yesterday which we reviewed yesterday evening on the view screen. It shows bilateral consolidation in the lungs with areas of cavitation consistent with pulmonary abscess in the right lower lobe and left lingula. Additionally, there are pleural effusions on the right greater than the left and decreased pyelonephritis, but a small left perinephric abscess is present. Gallbladder wall thickness is also noted, and there is cholelithiasis. IMPRESSION: The patient seems to be improving overall, but he continues to have dramatic fevers. I am concerned that these fevers are on the basis of a cavitating lung lesion with possible abscess formation or that he has an empyema. The effusion is clearly larger on the right, and I think this will need to be tapped. If diagnostic thoracentesis cannot be done, we may have to consult Surgery for a chest tube or even a video-assisted thorascopic surgery procedure, depending on how it goes with respect to the pleural effusion. He does have minimal right upper quadrant tenderness, and we do have a CT scan which shows some gallbladder wall thickening, but his LFTs are completely normal. I think this will require close followup. His small perirenal abscess will likely resolve with a long course of antibiotics we anticipate for his methicillin-resistant Staphylococcus aureus endocarditis. RECOMMENDATIONS: 1. Ultrasound-guided thoracentesis should be attempted to try and get a sample from the right pleural effusion and see if he has an empyema. 2. If he does have evidence of empyema or if they cannot get a sample because the fluid is too thick and loculated, a chest tube or VATS procedure may be indicated. 3. Will continue with vancomycin and ceftaroline for this time.
--- NOTE | 2016-10-29 13:27 | NUR ---
Called and left additional message at [facility] for Swing, also faxed updated clinicals on patient to them for further review. 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 She will continue to update me as we wait for authorization. There has been quick turn around she feels with [facility] . Updated CHEMICAL MACHINE TENDER
--- NOTE | 2016-10-29 14:21 | PCM.PHAPRO ---
Progress Vancomycin dosing Vancomycin per Pharmacy Current Vancomycin 2000mg IV Q8H Previous trough = 17 at current dose. Current trough 10/29 = 13.5 Dose administration was not consistent and trough was drawn an hour late. True tough may be higher so will not change dosing at this time. Will check trough in a couple days. Tiago Green [facility] Oct 29, 2016 14:21
--- NOTE | 2016-10-29 14:26 | NUR ---
NUTRITION ASSESSMENT: ASSESS: 26 YO male admitted for abdominal and back pain with subacute bacterial endocarditis secondary to IV drug use. Pt with persistent unexplained fevers and had a CT scan yesterday. Pt may require and ultrasound guided thoracentesis with possible chest tube or VATS procedure per notes. PMHx: IV drug use (heroine and methamphetamine) LABS: Reviewed. Alb 2.5 MEDS: Reviewed. GI: BM x 1 (10/28) CURRENT WT: 83.6 kg. DIET: General. PO 100%. EST. NEEDS: 4286-7479 kcals (25-30 kcals/kg BW), 100-125 g protein (1.2-1.5 g/kg BW) NUTRITION DIAGNOSIS: 1.) No nutritional diagnosis at this time. NUTRITION INTERVENTION: 1.) No nutritional intervention at this time. MONITOR / EVAL: PO intake, labs, nutritional status. Follow per low nutritional risk guidelines.
--- NOTE | 2016-10-29 15:40 | NUR ---
Pt off floor to US/Thoracentesis. Tele notified. Addendum: 10/29/16 at 1627 by ROSANNA RODNEY RN US only, no thoracentesis.
--- NOTE | 2016-10-29 16:21 | PCM.PNMED ---
Subjective Date of Service Oct 29, 2016 Subjective denies any new issues/complaints. Exam Vital Signs Vital Sign - Last Date Time Temp Pulse Resp B/P Pulse Ox O2 Delivery O2 Flow Rate FiO2 10/29/16 14:48 39.6 92 16 103/56 97 Room Air 10/23/16 15:50 2.00 Intake and Output 10/28/16 10/28/16 10/29/16 Cumulative From/Thru 15:00 23:00 07:00 10/20/16 00:16 - 10/29/16 06:58 Intake Total 2122 ml 1150 ml 400 ml 63309 ml Output Total 1000 ml 890 ml 825 ml 93542 ml Balance 1122 ml 260 ml -425 ml 85975 ml Intake Oral 513 ml 1150 ml 400 ml 94709 ml IV Total 1609 ml 86923 ml Output Urine Total 1000 ml 890 ml 825 ml 44164 ml # Voids 11 # Bowel Movements 0 1 0 2 Exam General: Alert, Cooperative, No Acute Distress Eyes: Scleral Anicteric Mouth: Mucous Membr Moist/[place] Neck: Supple Chest & Lungs: Chest Wall Normal, Clear to auscultation bilat Cardiovascular: Regular Rate/Rhythm Abdomen: Non-tender, Non-distended, Normoactive bowel tones, Soft Extremities: No cyanosis/clubbing/edema bilat Neurological: Grossly Neurologically Intact, Normal Speech IVs and Medications Medications Reviewed: Medications were reviewed in detail Lab and Diagnostics Result Diagram: 10/29/16 0532 10/29/16 0620 X-Rays, CTs and MRIs CT scan of the brain negative for intracranial process, CT scan of abdomen and pelvis showed septic emboli to kidneys bilaterally, CT angio of chest showed multiple septic emboli to lungs bilaterally, no over vegetations of heart valves noted on CT chest 12-lead ECG ECG Interpretation: Sinus tachycardia rate 114 Time: 01:12 Interpreted by: ED physician Cardiac Echo Impressions Echocardiogram Report Name: LORI BALDWIN Study Date: 10/20/2016 Height: 70 in Hospital Exam Location: [facility] Weight: 177 lb Gender: Male BSA: 2.0 m2 : 1990 Age: 26 yrs BP: 106/59 mmHg Reason For Study: Endocarditis History: IVDA, SMOKER Ordering Physician: Performed By: Sarika Fuller HOSPITALIST [facility] Interpretation Summary The left ventricle is normal in size, wall thickness, and systolic function without any focal wall motion abnormalities. The ejection fraction is estimated to be 60-65%. The right ventricle is normal in size and function. The left atrium is mildly dilated. Right atrial size is normal. There is no obvious valvular vegetation identified on this exam. Consider EFREN if there is a high degree of clinical suspicion for endocarditis and clinically appropriate. There is no significant valvular heart disease. The aortic root is normal size. Procedure: A two-dimensional transthoracic echocardiogram with color flow and Doppler was performed. The study quality was technically adequate. There is no prior echocardiogram noted for this patient. The patient was in normal sinus rhythm during the exam. Left Ventricle: The left ventricle is normal in size, wall thickness, and systolic function without any focal wall motion abnormalities. A false chord is noted (normal variant). The ejection fraction is estimated to be 60-65%. The transmitral spectral Doppler flow pattern is normal for age. Right Ventricle: The right ventricle is normal in size and function. Atria: The left atrium is mildly dilated. Right atrial size is normal. There is no Doppler evidence for an interatrial shunt. Mitral Valve: The mitral valve is normal in structure and function. There is trace mitral regurgitation. Aortic Valve: The aortic valve is normal in structure and function. No aortic regurgitation is present. Tricuspid Valve: The tricuspid valve is normal in structure and function. Pulmonary artery pressures cannot be estimated because of the lack of a measurable TR jet velocity. Pulmonic Valve: The pulmonic valve is normal in structure and function. There is no pulmonic valvular regurgitation. There is no obvious valvular vegetation identified on this exam. Consider EFREN if there is a high degree of clinical suspicion for endocarditis and clinically appropriate. There is no significant valvular heart disease. Great Vessels: The aortic root is normal size. The ascending aorta is normal in size. The IVC has a measurement of 20 mm. The patient could not perform sniff test. Pericardium/ Pleura There is no pericardial effusion. MMode/2D Measurements & Calculations LVIDd: 5.4 cm RA long axis LVOT diam LVIDs: 3.2 cm LA A2 area: 21.8 cm FS: 39.5 % LA A4 area: 23.1 cm RA area AoV Opening EPSS: 0.47 cm LA length (vol): 6.2 cm IVSd: 0.66 cm LA vol: 68.8 ml : 18.3 cm Ao root diam LVPWd: 0.71 cm LA vol index RA vol : 59.5 ml asc Aorta RA Diam: 3.2 cm IVC diam: 2.0 cm : 30.0 mm2 LV rodrigues. diameter/BSA LV sys. diameter/BSA RVD1 (basal) (cm/m^2): 2.7 (cm/m^2): 1.6 Doppler Measurements & Calculations Ao V2 max MV E max jorge MV E/A: 2.3 PA V2 max : 171.7 cm/sec : 117.0 cm/sec Med Peak E' Jorge : 99.6 cm/sec Ao max PG MV A max jorge PA mean PG : 11.8 mmHg : 50.8 cm/sec E/E' med: 8.9 Ao mean PG MV P1/2t: 66.3 msec Lat Peak E' Jorge PA Accel Time : 0.12 sec LVOT Max Jorge E/E' lat: 6.0 : 123.3 cm/sec E/e' average: 7.4 KAILYN(I,D): 3.2 cm Pulm A Revs Dur sev ratio MV A dur: 0.09 sec MV dec time MV P1/2t max jorge Ao V2 mean LV V1 max PG : 0.23 sec : 113.9 cm/sec Ao V2 VTI: 25.9 cm LV V1 VTI MVA(P1/2t): 3.3 cm2 : 20.9 cm KAILYN(V,D): 2.8 cm2 PA V2 mean KAILYN indexed to BSA Pulm A Revs Dur - MV A : 68.9 cm/sec (cm^2/m^2): 1.6 Dur: -0.01 msec Reading Physician:PM Assessment & Plan 26 y.o. M with past medical history of IVDU heroin and methamphetamine, needle sharing, three previous OD on heroin, last heroine use 7-8 hours prior to ED admission, last meth use yesterday, admitted to ED for worsening chest and abdominal pain. # Acute MRSA bacteremia. present on admission - Patient has history of IVDU heroin and methamphetamine, multiple septic emboli noted on CT of lungs and kidneys, indicative of right and left sided heart valve involvement - appreciate ID consult. will f/u w/ recs - Continue with IV vancomycin and Ceftaroline per ID - continue to check blood cultures while still febrile # Sepsis, acute. Present at the time of admission Patient also has septic pulmonary emboli and possibly pyelonephritis. - Likely source of infection is intravenous drug use - WBC 23, lactic acid 1.6 on admission - Abx as noted above # CT chest 10/28: "Bilateral consolidation in the lungs consistent with pneumonia with areas of cavitation suspicious for developing pulmonary abscesses in the right lower lobe and left lingula. Bilateral pleural effusions , moderate on the right and small the left." - plan for thoracentesis to r/o possible underlying empyema - will f/u w/ further recs by ID # Acute Urinary retention. - Possibly due to septic emboli to kidneys vs UTI vs STD/STI - Urine culture: mixed urogenital liliana - UA is negative. Will follow clinically. # IVDU heroin and methamphetamine - Prior overdoses x 3, - Clonazepam 0.5 PRN for signs of withdrawal - Patient currently on scheduled methadone and clonidine with IV Ativan and IV morphine when necessary pain - orchestrate a slow taper over the next week. # High risk behavior - IVDU, needle sharing, never screened for HIV, Hepatitis, STD/STI - HIV 1/2 screen ordered (negative) - Hepatitis panel ordered (hep C antibody positive with PCR pending) - G/C screen urine ordered Disposition: As patient's second set of blood cultures are now coming back positive patient is likely to be her for several days for IV antibiotics. VTE Prophylaxis: Sub-Q Heparin (Unfractionated) VTE Mechanical Devices: Intermittant Pneumatic CD Resuscitation Status: CPR: Attempt Resuscitation Anurag Rivers Oct 29, 2016 16:21
--- NOTE | 2016-10-29 16:33 | NUR ---
Visitors/Behavior Pt and visitors: girlfriend, another male, and mother in the room on occasion. Pt very sleepy/sedated during the morning. Arousable by light touch/verbal interaction. Visitors are lounging around sleeping most of the time. CUSTOM BOW MAKER reports to have walked into the bathroom and found the mother fidgeting around with something in the shower area. Have not seen any suspicious behavior aside from sleeping most of the day. Spoke with pt about drug use while here. Pt denies any personal drug use, reports that his mother does not use drugs but has some kidney issues and isn't in the best health. Pt does report that some of his friends use drugs and they came in yesterday. Reminded pt about drug policy while at the hospital and that if we see any suspicious behavior from visitors, they will be asked to leave. Charge nurse notified of situation. Addendum: 10/29/16 at 1752 by ROSANNA RODNEY RN Asked pt about what mother was doing in the bathroom. Reports that mother rolls her own cigarettes and was probably doing that.
--- NOTE | 2016-10-29 16:58 | DRSVH ---
PROCEDURE: US CHEST/PLEURAL SONOGRAM INDICATIONS: Right pleural effusion, concerns for empyema COMPARISON: [facility], CT, CT CHEST ABD PELVIS W CON, 10/28/2016, 16:44. FINDINGS: Multiloculated, honeycomb right pleural effusion is present an empyema cannot be excluded. IMPRESSION: Multiloculated right pleural effusion. An empyema cannot be excluded. Surgical consulta tion is recommended. Dictated by: Mehdi Garces RRChani Interpreted: Mer Mandujano MD on 10/29/2016 at 16:57 Transcribed by: MARAH on 10/29/2016 at 16:58 Approved by: Mer Mandujano M.D. on 10/29/2016 at 17:52
[2016-10-30] VITALS (8 sets, daily range): BP systolic 100–141; BP diastolic 54–81; PULSE 59–97; RESP 18–20; O2SAT 92–96
[2016-10-30] MEDS: Vancomycin Inj 2,000 MG in 0.9% Sodium Chloride 500 ML IV SCH ×3 (00:55→17:12)
[2016-10-30] MEDS: Sodium Chloride LOK Flush 10 mL Syringe IVFLUSH SCH ×3 (00:56→17:11)
[2016-10-30] MEDS: Vancomycin Dose per Pharmacist XX SCH ×2 (03:14→08:30)
[2016-10-30] MEDS: Ceftaroline Inj 600 MG in Dextrose 5% 250 ML IV SCH (05:32)
--- NOTE | 2016-10-30 07:19 | NUR ---
Temp Pt's temp increased to 40.2, medicated pt with 2 tabs tylenol. Pt continues to be febrile this shift. Temps gradually decreasing 39.4, 38.6. paged to notify of pt's temp, no new orders received. Continued to medicate with tylenol Q4 hours. Temp at 0530 was 38.0, medicated with 2 tabs tylenol. At this time pt stating "I feel better." Will continue to assess pt for fever.
[2016-10-30] MEDS: cloNIDine 0.1 mg Tablet PO SCH ×3 (09:01→20:49)
--- NOTE | 2016-10-30 10:46 | PROG NOTE ---
[address] [address] PROGRESS NOTE PATIENT: LORI BALDWIN : 1990 MR#: [id number] ADMIT: 10/20/2016 JOB ID: [id number] DATE: 10/30/2016 INFECTIOUS DISEASE FOLLOWUP NOTE: REASON FOR FOLLOWUP: High-grade MRSA bacteremia, endocarditis by Wasatch criteria and probable right-sided empyema. INTERVAL HISTORY: The patient remains somewhat lethargic, grumpy and generally not terribly interactive with the Medical team. He is always found in a very sleepy condition and arouses somewhat reluctantly. Today, he reports no fever, no chills. Says he has no significant shortness of breath, cough, nausea, vomiting, or diarrhea but does have right pleuritic chest pain. PHYSICAL EXAMINATION: Reveals a very lethargic, but oriented young man. Temperature 39.4 at midnight which continues a pattern of 39 to 41-degree fevers, which has been going on for days. Pulse 82, respiratory rate 20, blood pressure 100/62, saturating well on room air. As mentioned, he is oriented and in no distress. Oral cavity negative. Lungs with decreased breath sounds at the bases much more so on the right. Abdomen soft and nontender. Cardiac exam with 1/6 murmur. LABORATORIES: Include white count 4600, basically normal diff. Creatinine 0.85, stable. LDH 338. Most recent procalcitonin at 10 days ago was 0.49. Hep C viral load has come back at 36,000, and it is genotype 1A, so he does have active hepatitis C. Micro includes the blood cultures, which are negative since the , and on, all blood cultures negative. IMAGING: From yesterday includes the ultrasound of the right chest which shows a thick, loculated right pleural effusion, which could not be drained with a needle. 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 He has improved overall from his initial very claribel baseline but his fevers continue despite, and a CT scan and ultrasound now confirm the presence of a loculated complex right pleural effusion, which I suspect is a methicillin-resistant Staphylococcus aureus empyema. The patient also now is known to have active hepatitis C with positive viral load genotype 1A. Treatment for this can obviously be deferred. RECOMMENDATIONS: 1. We can drop the ceftaroline, as this was started when we were very concerned about the patient's status and were having trouble resolving his positive blood cultures. 2. Will continue with vancomycin into early December, presumably, to finish six full weeks of IV antibiotics. 3. The patient should have his right chest investigated as soon as possible, and I have discussed this in person with Dr. Rivers. Almost certainly, he will require a video-assisted thoracoscopic surgery or chest tube or both. Open decortication is even a possibility. 4. I suspect his fevers will resolve once his right pleural space is cleaned out. He obviously has many metastatic foci of infections elsewhere in his body, presumably, and it may take a bit for his fevers to completely resolve but I think the major issue here is a right-sided empyema.
[2016-10-30] MEDS: oxyCODONE-Acetamin 5-325 mg Tablet PO PRN ×2 (12:13→20:54)
[2016-10-30] MEDS: Ondansetron 2 mg/mL 2 mL Inj IVPUSH PRN (13:43)
--- NOTE | 2016-10-30 15:24 | PCM.PNMED ---
Subjective Date of Service Oct 30, 2016 Subjective denies any new issues/complaints. Exam Vital Signs Vital Sign - Last Date Time Temp Pulse Resp B/P Pulse Ox O2 Delivery O2 Flow Rate FiO2 10/30/16 12:09 39.4 97 19 141/81 95 Room Air Intake and Output 10/29/16 10/29/16 10/30/16 Cumulative From/Thru 15:00 23:00 07:00 10/20/16 00:16 - 10/30/16 06:51 Intake Total 2868 ml 2066 ml 49481 ml Output Total 1400 ml 1325 ml 23086 ml Balance 1468 ml 741 ml 11959 ml Intake Oral 1080 ml 640 ml 01941 ml IV Total 1788 ml 1426 ml 38792 ml Output Urine Total 1400 ml 1325 ml 07220 ml # Voids 11 # Bowel Movements 0 0 2 Exam General: Alert, Cooperative, No Acute Distress Eyes: Scleral Anicteric Mouth: Mucous Membr Moist/[place] Neck: Supple Chest & Lungs: Chest Wall Normal, Clear to auscultation bilat Cardiovascular: Regular Rate/Rhythm Abdomen: Non-tender, Non-distended, Normoactive bowel tones, Soft Extremities: No cyanosis/clubbing/edema bilat Neurological: Grossly Neurologically Intact, Normal Speech IVs and Medications Medications Reviewed: Medications were reviewed in detail Lab and Diagnostics Result Diagram: 10/29/16 0532 10/30/16 0539 X-Rays, CTs and MRIs CT scan of the brain negative for intracranial process, CT scan of abdomen and pelvis showed septic emboli to kidneys bilaterally, CT angio of chest showed multiple septic emboli to lungs bilaterally, no over vegetations of heart valves noted on CT chest 12-lead ECG ECG Interpretation: Sinus tachycardia rate 114 Time: 01:12 Interpreted by: ED physician Cardiac Echo Impressions Echocardiogram Report Name: LORI BALDWIN Study Date: 10/20/2016 Height: 70 in Hospital Exam Location: [facility] Weight: 177 lb Gender: Male BSA: 2.0 m2 : 1990 Age: 26 yrs BP: 106/59 mmHg Reason For Study: Endocarditis History: IVDA, SMOKER Ordering Physician: [facility]formed [facility] Interpretation Summary The left ventricle is normal in size, wall thickness, and systolic function without any focal wall motion abnormalities. The ejection fraction is estimated to be 60-65%. The right ventricle is normal in size and function. The left atrium is mildly dilated. Right atrial size is normal. There is no obvious valvular vegetation identified on this exam. Consider EFREN if there is a high degree of clinical suspicion for endocarditis and clinically appropriate. There is no significant valvular heart disease. The aortic root is normal size. Procedure: A two-dimensional transthoracic echocardiogram with color flow and Doppler was performed. The study quality was technically adequate. There is no prior echocardiogram noted for this patient. The patient was in normal sinus rhythm during the exam. Left Ventricle: The left ventricle is normal in size, wall thickness, and systolic function without any focal wall motion abnormalities. A false chord is noted (normal variant). The ejection fraction is estimated to be 60-65%. The transmitral spectral Doppler flow pattern is normal for age. Right Ventricle: The right ventricle is normal in size and function. Atria: The left atrium is mildly dilated. Right atrial size is normal. There is no Doppler evidence for an interatrial shunt. Mitral Valve: The mitral valve is normal in structure and function. There is trace mitral regurgitation. Aortic Valve: The aortic valve is normal in structure and function. No aortic regurgitation is present. Tricuspid Valve: The tricuspid valve is normal in structure and function. Pulmonary artery pressures cannot be estimated because of the lack of a measurable TR jet velocity. Pulmonic Valve: The pulmonic valve is normal in structure and function. There is no pulmonic valvular regurgitation. There is no obvious valvular vegetation identified on this exam. Consider EFREN if there is a high degree of clinical suspicion for endocarditis and clinically appropriate. There is no significant valvular heart disease. Great Vessels: The aortic root is normal size. The ascending aorta is normal in size. The IVC has a measurement of 20 mm. The patient could not perform sniff test. Pericardium/ Pleura There is no pericardial effusion. MMode/2D Measurements & Calculations LVIDd: 5.4 cm RA long axis LVOT diam LVIDs: 3.2 cm LA A2 area: 21.8 cm FS: 39.5 % LA A4 area: 23.1 cm RA area AoV Opening EPSS: 0.47 cm LA length (vol): 6.2 cm IVSd: 0.66 cm LA vol: 68.8 ml : 18.3 cm Ao root diam LVPWd: 0.71 cm LA vol index RA vol : 59.5 ml asc Aorta RA Diam: 3.2 cm IVC diam: 2.0 cm : 30.0 mm2 LV rodrigues. diameter/BSA LV sys. diameter/BSA RVD1 (basal) (cm/m^2): 2.7 (cm/m^2): 1.6 Doppler Measurements & Calculations Ao V2 max MV E max jorge MV E/A: 2.3 PA V2 max : 171.7 cm/sec : 117.0 cm/sec Med Peak E' Jorge : 99.6 cm/sec Ao max PG MV A max jorge PA mean PG : 11.8 mmHg : 50.8 cm/sec E/E' med: 8.9 Ao mean PG MV P1/2t: 66.3 msec Lat Peak E' Jorge PA Accel Time : 0.12 sec LVOT Max Jorge E/E' lat: 6.0 : 123.3 cm/sec E/e' average: 7.4 KAILYN(I,D): 3.2 cm Pulm A Revs Dur sev ratio MV A dur: 0.09 sec MV dec time MV P1/2t max jorge Ao V2 mean LV V1 max PG : 0.23 sec : 113.9 cm/sec Ao V2 VTI: 25.9 cm LV V1 VTI MVA(P1/2t): 3.3 cm2 : 20.9 cm KAILYN(V,D): 2.8 cm2 PA V2 mean KAILYN indexed to BSA Pulm A Revs Dur - MV A : 68.9 cm/sec (cm^2/m^2): 1.6 Dur: -0.01 msec Reading Physician:PM Assessment & Plan 26 y.o. M with past medical history of IVDU heroin and methamphetamine, needle sharing, three previous OD on heroin, last heroine use 7-8 hours prior to ED admission, last meth use yesterday, admitted to ED for worsening chest and abdominal pain. # Acute MRSA bacteremia. present on admission - Patient has history of IVDU heroin and methamphetamine, multiple septic emboli noted on CT of lungs and kidneys, indicative of right and left sided heart valve involvement - appreciate ID consult. will f/u w/ recs - Continue with IV vancomycin and Ceftaroline per ID - continue to check blood cultures while still febrile # Sepsis, acute. Present at the time of admission Patient also has septic pulmonary emboli and possibly pyelonephritis. - Likely source of infection is intravenous drug use - WBC 23, lactic acid 1.6 on admission - Abx as noted above # CT chest 10/28: "Bilateral consolidation in the lungs consistent with pneumonia with areas of cavitation suspicious for developing pulmonary abscesses in the right lower lobe and left lingula. Bilateral pleural effusions , moderate on the right and small the left." - surgery consulted followed by pulmonology consult today. Appreciate consults and help. will f/u w/ recs - plan for thoracentesis attempt by pulmonology and if not successful or sign of empyema for chest tube by surgery - will f/u w/ further recs by ID as well. # Acute Urinary retention. - Possibly due to septic emboli to kidneys vs UTI vs STD/STI - Urine culture: mixed urogenital liliana - UA is negative. Will follow clinically. # IVDU heroin and methamphetamine - Prior overdoses x 3, - Clonazepam 0.5 PRN for signs of withdrawal - Patient currently on scheduled methadone and clonidine with IV Ativan and IV morphine when necessary pain - orchestrate a slow taper over the next week. # High risk behavior - IVDU, needle sharing, never screened for HIV, Hepatitis, STD/STI - HIV 1/2 screen ordered (negative) - Hepatitis panel ordered (hep C antibody positive with PCR pending) - G/C screen urine ordered Disposition: pending above issues VTE Prophylaxis: Sub-Q Heparin (Unfractionated) VTE Mechanical Devices: Intermittant Pneumatic CD Resuscitation Status: CPR: Attempt Resuscitation Time spent 40 min Anurag Rivers Oct 30, 2016 15:24
--- NOTE | 2016-10-30 15:40 | PCM.PROC ---
Procedure Note Date of Service: Oct 30, 2016 Pre Procedure Diagnosis: Right Pleural Effusion. . Post Procedure Diagnosis: Right Pleural Effusion. Successful Ultrasound Guided Right Thoracentesis. . Procedure: Ultrasound Guided Right Thoracentesis. . Provider and Meal Temperer: Resident: Christal Simmons DO Attending: Bradford Dickey MD . Indication for Procedure: Right Pleural Effusion. . Findings: Please see below. . Procedural Analgesia: 10 cc 1% lidocaine without epinephrine. . Procedure Details: The procedure was discussed with the patient regarding the risks, benefits, and alternatives. The patient consented to the procedure. A time-out was completed verifying the correct patient, procedure, site, and positioning. The patients right side was prepped and draped in a sterile manner after the appropriate infiltration level was confirmed by ultrasound. Approximately 10 cc of 1% lidocaine without epinephrine was used to anesthetize the surrounding skin. A finder needle was then used to locate fluid and clear serous fluid was obtained. The thoracentesis catheter was then threaded without difficulty. The patient had approximately 480 cc of clear serous fluid removed. Dr. Dickey was present for the entire procedure. A post-procedure chest x-ray was ordered and pending at the time of this dictation. The fluid will be sent for serology and cytology. Estimated Blood Loss was approximately 1 cc. The patient tolerated the procedure well but had increasing pain towards the end of the procedure so the procedure was stopped prematurely. There were no complications. . Specimen: Serous pleural fluid. . Post Procedure Plan: Serology, Cytology, Gram stain and Culture. . Attending Statement Procedure: Right ultrasound-guided thoracentesis indication: Right pleural effusion I was present for and supervised the entire procedure. Cristina Dickey M.D. Pulmonary and Critical Care medicine Pager [phone] Christal Simmons DO Oct 30, 2016 15:40 Cristina Dickey MD Oct 31, 2016 13:45
--- NOTE | 2016-10-30 16:07 | NUR ---
Thoracentesis: Patient had his thoracentesis today. Over 500cc of yellowish fluid was drained from his right lung. After the procedure patient stated that he was able to breath easier . Patient able to take a deep breath with out shuttering. Patient ate his lunch after the procedure and he was able to lay back in his bed and relax comfortably. Xray was done post procedure.
--- NOTE | 2016-10-30 16:26 | PCM.CHPMED ---
Subjective Date of Service: Oct 30, 2016 Provider requesting consult: Jacobo Yoon MD Primary Physician: Admitting Physician: Luna Ramirez DO Primary Care Physician: Nopcp Attending Physician: Luna Ramirez DO Chief Complaint: Chief Complaint: Complex right pleural effusion. . History of Present Illness: Pulmonology Consultation Note: Attending Dr. 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 Emergency Department for a 2 day history of worsening chest and abdominal pain with radiation to the back. Hospital day #11. Per admission HPI: The patient described chest pain as constant, severe, sharp and tight, with radiation to back, worse with inspiration and coughing, made better by PO Percocet. Abdominal pain described as constant severe, diffuse, made worse with inspiration and coughing, radiation to back. Associated with shortness of breath, tachycardia, nausea, vomiting, fever, chills, sweating, urinary incontinence, itching. Patient denies blood in stool, numbness, tingling , change in vision, auditory hallucination, visual hallucination, thoughts of suicide, thoughts of homicide. Today: The patient complains of substernal pleuritic chest pain that is located in the center of his chest. He has had the pain for several weeks. The pain does not radiate and is constant. The pain worsens with cough. He rates the pain a +6 out of 10. He describes the pain as sharp. He denies shortness of breath. He also has left-sided mid back pain. He continues to have fevers and complains of diaphoresis. He also endorses nausea but has not vomited. He denies headache, blurry vision, abdominal pain, dysuria, diarrhea or constipation, upper or lower extremity pain. . Review of Systems: A comprehensive review of systems was conducted with the patient and found to be negative except as above in the History of Present Illness. . PMH Past Medical History 1. 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 . Surgical History 1. Cholecystectomy . Home Medications None. . Allergies: Coded Allergies: No Known Allergies (Verified Allergy, Unknown, 12/10/14) Family History Family History Family history of CAD. No history of cancer. . Social History Hx Alcohol Use: Yes (does not want to discuss how much alchol he consumes)Hx Substance Use: Yes (heroin and methamphetamines)Hx Tobacco Use: Yes Smoking Status: Current Every Day Smoker (daily smoker) Additional Information The patient was born in [place], [place] and grew up in [place], [place]. He currently lives with his grandmother. He is estranged from his mother who is also an IV drug user. The patient reports he began using IV drugs, specifically methamphetamines when he was 15 years old and heroin when he was 16 years old. . Exam Vital Signs Vital Sign - Last Date Time Temp Pulse Resp B/P Pulse Ox O2 Delivery O2 Flow Rate FiO2 10/30/16 12:09 39.4 97 19 141/81 95 Room Air Intake and Output 10/29/16 10/29/16 10/30/16 Cumulative From/Thru 15:00 23:00 07:00 10/20/16 00:16 - 10/30/16 06:51 Intake Total 2868 ml 2066 ml 49971 ml Output Total 1400 ml 1325 ml 18847 ml Balance 1468 ml 741 ml 02500 ml Intake Oral 1080 ml 640 ml 99919 ml IV Total 1788 ml 1426 ml 55994 ml Output Urine Total 1400 ml 1325 ml 19873 ml # Voids 11 # Bowel Movements 0 0 2 General: Alert, Oriented X3, Cooperative Head: Normal Eyes: PERRLA, EOMI, Scleral Anicteric Nose: Mucous Membr Moist/[place] Mouth: Mouth Normal, Mucous Membr Moist/[place] Neck: Supple Chest & Lungs: Clear to auscultation & percussion, No adventitious breath sounds, Diminished breath sounds (bases bilaterally), Other (dullness to percussion over right lung base) Cardiovascular: Regular Rate/Rhythm, Normal S1, Normal S2, Murmur (systolic I/ at LUSB) Abdomen: Non-tender, Non-distended, No masses, No hepatosplenomegaly, Soft Extremities: No cyanosis/clubbing/edma bilat Skin: Wounds/Lacerations (ecoriation in different stages of healing and scars scattered throughout upper and lower extremities) Neurological: Grossly Neurologically Intact Lab and Diagnostics Labs Item Value Date Time Rheumatoid Factor 18.0 IU/mL H 10/20/16 0841 Rapid Plasma Reagin Non reactive 10/20/16 0841 Chlamydia trachomatis DNA (LELO) Negative 10/20/16 0500 Hepatitis A IgM Antibody Negative 10/20/16 0841 Hepatitis B Surface Antigen Negative 10/20/16 0841 Hepatitis B Core IgM Antibody Negative 10/20/16 0841 Hepatitis C Antibody >11.0 s/co ratio H 10/20/16 0841 Hepatitis C Virus Quantitation 49511 IU/mL 10/21/16 1100 Hepatitis C RNA (PCR) log10 4.551 10/21/16 1100 Hepatitis C Genotype 1a 10/21/16 1100 HIV (1&2) Ag and Ab, 4th Generation Non reactive 10/20/16 0841 Neisseria gonorrhoeae DNA (LELO) Negative 10/20/16 0500 Result Diagram: 10/29/16 0532 10/30/16 0539 X-Rays, CTs and MRIs US CHEST/PLEURAL SONOGRAM IMPRESSION: Multiloculated right pleural effusion. An empyema cannot be excluded. Surgical consultation is recommended. Dictated by: Mehdi Garces RRA Interpreted: Mer Mandujano MD on 10/29/2016 at 16:57 CT CHEST, ABDOMEN AND PELVIS WTIH CONTRAST IMPRESSION: 1. Bilateral consolidation in the lungs consistent with pneumonia with areas of cavitation suspicious for developing pulmonary abscesses in the right lower lobe and left lingula. 2. Bilateral pleural effusions, moderate on the right and small the left. 3. Decreased prominence of heterogeneous renal enhancement on the prior study compatible with pyelonephritis. There is also decrease in size of a small left perinephric collection consistent with a small perinephric abscess. 4. Cholelithiasis with mild gallbladder wall thickening. If there is clinical suspicion for cholecystitis, recommend further evaluation with ultrasound. Dictated by: Geovanny Ruiz M.D. on 10/28/2016 at 18:22 CT BRAIN WITHOUT CONTRAST IMPRESSION: 1. Normal head CT No significant discrepancy with the night nurse radiology preliminary report. Dictated by: Mer Mandujano M.D. on 10/20/2016 at 8:21 CT ABDOMEN AND PELVIS WITH CONTRAST IMPRESSION: 1. Patchy airspace opacities in the lung bases bilaterally suspicious for pneumonia. 2. Probable bilateral pyelonephritis. 3. Bilateral pyelonephritis and by basilar pneumonia concerning for septic emboli. Please correlate with clinical data. 4. Cholelithiasis. Dictated by: Dana Caicedo MD, PhD on 10/20/2016 at 9:33 CT ANGIO CHEST PULMONARY EMBOLISM IMPRESSION: 1. No evidence for central pulmonary embolism. 2. Bilateral pulmonary infiltrates and nodules consistent with pneumonia, including atypical infections. 3. Small right effusion trace left effusion. No significant discrepancy with the night nurse radiology preliminary report. Dictated by: Mer Mandujano M.D. on 10/20/2016 at 9:30 X-RAY CHEST ONE VIEW, PORTABLE IMPRESSION: 1. Left atelectasis versus aspiration or pneumonia. Correlate clinically. Dictated by: Mehdi Garces RRA Interpreted: Dana Caicedo MD on 10/20/2016 at 8:48 . Additional Diagnostics: Transesophageal Echocardiogram Interpretation Summary: 1. Grossly normal left ventricular size with normal systolic function. 2. Grossly normal right ventricular size with normal systolic function. 3. In the views obtained, no valvular vegetations were appreciated. There is no significant regurgitation to suggest valvular destruction secondary to infection. Reading Physician:06:13 PM Echocardiogram Interpretation Summary: The left ventricle is normal in size, wall thickness, and systolic function without any focal wall motion abnormalities. The ejection fraction is estimated to be 60-65%. The right ventricle is normal in size and function. The left atrium is mildly dilated. Right atrial size is normal. There is no obvious valvular vegetation identified on this exam. Consider EFREN if there is a high degree of clinical suspicion for endocarditis and clinically appropriate. There is no significant valvular heart disease. The aortic root is normal size. Reading Physician:PM . 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 Emergency Department for a 2 day history of worsening chest and abdominal pain with radiation to the back. Hospital day #11. Assessment: 1. Complex right parapneumonic pleural effusion, present admission. Worsening. 2. MRSA bacteremia, present admission. Undergoing treatment. 3. Chronic IV drug use, present admission. Active. 4. Hepatitis C, acuity unknown, present admission. Active. Impression: The patient presented with acute chest pain and shortness of breath. He has been febrile since his admission on 10/20/2016. He was found to have MRSA bacteremia which has been quite difficult to treat and he has been on dual antibiotic coverage with both vancomycin and ceftaroline. The ceftaroline has been discontinued today as he has had repeated negative blood cultures. CT chest revealed bilateral pleural effusions with the right being moderate in volume, with a free-flowing appearance. Pleural ultrasound revealed multiloculated right pleural effusion most consistent with empyema. Differential diagnosis includes: MRSA Empyema versus complex parapneumonic effusion. Recommendations: 1. Plan for thoracentesis this afternoon. He may still require a chest tube or a VATS procedure afterward depending upon how much fluid can be drained off, the viscosity and turbidity of the fluid depending on the etiology, and whether there are multiple loculations. 2. Send pleural fluid for serology, cytology, Gram stain and culture. . Problems: Pain Evaluation: Adequate Pain Control VTE Prophylaxis: Sub-Q Heparin (Unfractionated) VTE Mechanical Devices: Intermittant Pneumatic CD Resuscitation Status: CPR: Attempt Resuscitation Attending Statement I have seen and examined this patient with the resident physician. Vital signs , labs, imaging have been reviewed. I agree with the assessment and plan above. Please refer to my separately dictated progress note for any modifications to above. Cristina Dickey M.D. Pulmonary and Critical Care medicine Pager [phone] Christal Simmons DO Oct 30, 2016 12:41 Cristina Dickey MD Oct 31, 2016 13:49
--- NOTE | 2016-10-30 16:27 | CONS ---
[address] [address] CONSULTATION REPORT PATIENT: LORI BALDWIN : 1990 MR#: [id number] ADMIT: 10/20/2016 JOB ID: [id number] DATE OF SERVICE: 10/30/2016 PULMONARY CONSULTATION NOTE: The patient is a 26-year-old man admitted to the hospital with MRSA bacteremia and suspected endocarditis, seen in consultation at the request of Dr. Jacobo Yoon for right pleural effusion. The patient was seen and evaluated with resident physician, Dr. Christal Simmons. Please refer to her separate detailed note for complete information. The following is a brief attending note. HISTORY OF PRESENT ILLNESS: The patient is a 26-year-old man with a history of IV heroin and methamphetamine use up until the day he came into the hospital on October 20, 2016. He presented to the emergency department with chest pain, cough, fever. Blood cultures turned positive for MRSA and he has been seen by Dr. Pagan with Infectious Diseases. He was started on vancomycin and ceftaroline to treat this. Last positive blood culture was on October 22 and subsequent repeated blood cultures have been negative to date. However, the patient has had daily fevers as high as 39.4-40.7 for the last 10 days since he was admitted. He continues to have chest pain with breathing although this is better. Past medical history, social history, family history, and review of systems is per Dr. Simmons's separate note. Complete physical examination is also per her note and I agree with her findings. PHYSICAL EXAMINATION: Vital signs reviewed. Notable for T-max of 39.4, pulse 97, respirations 19, BP 140/80, sats 95% on room air. General: Young man sitting up in bed, in no distress but seems annoyed with questions and is not really interested in providing a full history. Neck: No cervical lymphadenopathy. Chest: Decreased breath sounds at the right lung base. Heart: Regular rate and rhythm. LABORATORIES: Reviewed. Normal white count. Sodium is slightly low at 132. Cultures as discussed above in HPI. Blood cultures were positive for MRSA on October 20, October 22 but have been negative since. I do not see that a sputum culture was ever done. IMAGING: CT of the chest from October 20, 2016 as well as October 28, 2016 were both reviewed and compared. Chest CT from October 20 shows bilateral basilar consolidation. There was a trace right pleural effusion at that time. CT from October 28 shows the pleural effusion is now small on the right. It does appear to be free-flowing without any obvious evidence of loculations but it does seem to track into the fissure on the right. There is also associated atelectasis of the right lower lobe as well as consolidation. On the left, there is a wedge-shaped peripheral pleural-based area of consolidation with central cavitation that is new compared to the last CT. This is in the lingula. ASSESSMENT AND RECOMMENDATIONS: 1. Complex right pleural effusion. 2. MRSA bacteremia with suspected endocarditis. 3. Cavitary left lung lesion-most likely from septic emboli. 4. History of IV drug abuse. 5. History of hepatitis C. This 26-year-old man with IV drug abuse and known hepatitis C but negative for HIV is presenting with MRSA bacteremia and likely endocarditis. His echo was negative for endocarditis but he has evidence of septic emboli on imaging including renal and a left lingular cavitary lesion. He also has an increasing right pleural effusion and persistent fevers which are concerning for an untreated source of infection. Ultrasound of the chest suggested that his pleural space was complicated with a lot of septations and loculations. Surgery has seen the patient but wonders if we should confirm the diagnosis of empyema before putting a chest tube in him which would be much more uncomfortable for the patient. Please refer to separate procedure note for complete details but we looked at the patient's chest with an ultrasound. There were some complex areas in there but there was one pocket that appeared to be clear and so we proceeded with a thoracentesis. Approximately 550 cc of clear yellow fluid was obtained. This did not look like pus on appearance but testing for protein, LDH, cultures, glucose, etc., is all still pending. The patient tolerated the procedure well and a postprocedure chest x-ray is still pending. I think we will need to wait and see what the fluid looks like and if it has a positive Gram stain/culture, low glucose, then it technically meets criteria for an empyema. In this setting, we may have no choice but to consider a VATS decortication as long as the patient agrees. Depending on the findings on pleural fluid analysis, I will discuss with Dr. Yoon. We need to watch carefully to make sure the fluid does not reaccumulate in which case he would definitely need at the very least a chest tube. I will continue to follow.
[2016-10-30 16:49] LABS: TOTAL PROTEIN,PLEURAL FLUID 4.8 g/dL
--- NOTE | 2016-10-30 16:50 | DRSVH ---
PROCEDURE: X-RAY CHEST ONE VIEW, PORTABLE ([id number]) INDICATIONS: post throacentesis TECHNIQUE: One view of the chest was acquired. COMPARISON: [facility], US, US CHEST PLEURAL, 10/29/2016, 15:52. [facility], CT, CT CHEST ABD PELVIS W CON, 10/28/2016, 16:44. [facility], CR, XR CHEST 2VW, 7, 17:32. [facility], CR, XR CHEST 1VW (PORTABLE), 10/20/2016, 1:10. FINDINGS: Surgical changes and devices: Stable position right PICC. Lungs and pleura: No pneumothorax post right thoracentesis. Residual right pleural effusion and pers istent bibasilar air space opacities are present. Mediastinum: Mediastinal contours appear normal. Heart size is normal. Bones and chest wall: No suspicious bony lesions. Overlying soft tissues appear unremarkable. IMPRESSION: 1. No pneumothorax post right thoracentesis. 2. Residual right pleural effusion and persistent bibasilar airspace opacities consistent with atelec tasis versus pneumonia. Continued radiographic surveillance to resolution is recommended. Dictated by: Mehdi KULKARNI Interpreted: Tad Perez MD on 10/30/2016 at 16:48 Transcribed by: WILLI on 10/30/2016 at 16:49 Approved by: Tad Perez M.D. on 10/31/2016 at 16:22
--- NOTE | 2016-10-30 17:12 | CONS ---
[address] [address] CONSULTATION REPORT PATIENT: LORI ABLDWIN : 1990 MR#: [id number] ADMIT: 10/20/2016 JOB ID: [id number] DATE OF SERVICE: 10/30/2016 CHIEF COMPLAINT/IDENTIFICATION: Dr. Rivers requested General Surgery consult on this 26-year-old man regarding possible chest tube placement. HISTORY OF PRESENT ILLNESS: The patient has a known history of intravenous heroin and amphetamine use and was admitted on October 20, 10 days ago, with positive blood cultures for MRSA, chest x-ray consistent with pneumonia, and a question of endocarditis. He has been on vancomycin and cephalosporin. Chest x-ray on the demonstrated increased pleural fluid, and a chest CT on the demonstrated bilateral consolidation of the lungs with areas of cavitation suspicious for pulmonary abscesses and bilateral pleural effusions, right greater than left. Chest ultrasound was obtained yesterday that demonstrated what was felt to be multiloculated right pleural effusion, and General Surgery consultation was recommended. Dr. Rivers consulted me today. I have asked Pulmonary to see the patient, and thoracentesis resulted in findings of roughly 500 cc of clear serous-appearing fluid that was sent for studies. Studies are pending at the time of this dictation. PAST MEDICAL HISTORY: As above, cholecystectomy. HOME MEDICATIONS: None. ALLERGIES: None. SOCIAL HISTORY: Smoker. Drinks alcohol on a daily basis. Uses heroin and methamphetamines. PHYSICAL EXAMINATION: Vital signs: Temperature T-max was 39.4. Pulse is between 85 and 97. Blood pressure is 105/57, ranging up to 141/81. Room air saturation ranges between 93% and 95%. IMAGING: I reviewed his chest ultrasound, chest CT, and chest x-ray for the preceding three days. IMPRESSION/PLAN: Possible empyema versus abscess with reactive effusion versus pneumonia with reactive effusion. Gram stain and chemistries on the pleural fluid are pending. If Gram stain is positive or chemistries are suggestive of empyema, I will place a chest tube tonight.
[2016-10-30] MEDS: 0.9% Sodium Chloride 1,000 ML IV SCH (17:26)
[2016-10-30 19:20] LABS: BFWBC 54 /mm3; MONOCYTES,BODY FLUID 57 %; OTHER CELLS,BODY FLUID 0
--- NOTE | 2016-10-30 21:08 | PROG NOTE ---
[address] [address] PROGRESS NOTE PATIENT: LORI BALDWIN : 1990 MR#: [id number] ADMIT: 10/20/2016 JOB ID: [id number] DATE: 10/30/2016 As of 8:30 this evening, Gram stain is still pending on the pleural fluid. Pleural fluid glucose is 76. At this point, there is no clear indication for chest tube placement. General Surgery will follow up in the morning regarding the Gram stain and culture.
[2016-10-31] VITALS (7 sets, daily range): BP systolic 96–112; BP diastolic 49–58; PULSE 51–84; RESP 18–20; O2SAT 94–98
[2016-10-31] MEDS: Sodium Chloride LOK Flush 10 mL Syringe IVFLUSH SCH ×4 (00:15→23:59)
[2016-10-31] MEDS: Vancomycin Inj 2,000 MG in 0.9% Sodium Chloride 500 ML IV SCH ×3 (01:16→18:49)
[2016-10-31] MEDS: 0.9% Sodium Chloride 1,000 ML IV SCH ×2 (02:34→15:15)
[2016-10-31] MEDS ORDERED: Vancomycin Serum Trough XX ONE ×2 (08:30→16:30)
[2016-10-31] MEDS: Vancomycin Dose per Pharmacist XX SCH (08:30)
--- NOTE | 2016-10-31 09:23 | PCM.PNSURG ---
Subjective Date of Service: Oct 31, 2016 Visit Information: Reason for Visit: Sepsis, Septic Emboli; right pleural effusion Date of Admission: Oct 20, 2016 at 04:27 Hospital Day #11 Subjective: Pt reports 7/10 chest pain with inspiration and certain positions, R > L but feels that he is breathing better today following the thoracentesis yesterday that drained nearly 500mls. He notes dry mouth as well as a sore throat and states that he is very thirsty. He feels his appetite is normal and states that he has been ambulating in his room. Postop General: No Shortness of Breath Gastrointestinal: Good Appetite Pain Management: PO, IV Push Postop Activity: Ambulating Independently Objective Vital Sign- Last 8 Hours Date Time Temp Pulse Resp B/P Pulse Ox O2 Delivery O2 Flow Rate FiO2 10/31/16 05:39 37.7 79 20 109/58 95 Room Air 10/31/16 04:57 73 10/31/16 01:54 38.6 84 20 112/50 94 Room Air Intake and Output- Last 8 Hour 10/31/16 Cumulative From/Thru 07:00 10/20/16 00:16 - 10/31/16 06:33 Intake Total 1700 ml 77232 ml Output Total 1900 ml 23263 ml Balance -200 ml 91532 ml Intake Oral 400 ml 85991 ml IV Total 1300 ml 31655 ml Output Urine Total 1900 ml 27539 ml # Voids 16 # Bowel Movements 0 2 General: Alert, Oriented X3 Lungs: Clear to Auscultation (poor inspiratory effort secondary to pain), Diminished (R>L) Heart: Exam Unremarkable Extremities: Thigh&Calf Soft/Nontender Neuro: Grossly Neurologically Intact Result Diagram: 10/29/16 0532 10/30/16 0539 Lab & Micro Results: Laboratory Tests Test 10/30/16 15:59 10/30/16 16:01 Body Fluid Source Pleural fluid Body Fluid Color Straw (Clear) Body Fluid Appearance Clear Body Fluid WBC 54/mm3 Body Fluid RBC 1235/mm3 Body Fluid Polynuclear WBCs 7% Body Fluid Lymphocytes 34% Body Fluid Monocytes 57% Body Fluid Eosinophils 2% Body Fluid Basophils 0% Body Fluid Lactate Dehydrogenase 512U/L Pleural Fluid Total Protein 4.8g/dL Pleural Fluid Glucose 76mg/dL Body Fluid pH 7.7 (Not Estab.) Microbiology 10/27/16 Blood Culture - Preliminary, no growth at 2 days. 10/30/16 Gram stain-final: NO POLYS NO ORGANISMS SEEN 10/30/16 Culture & Sensitivity, pending 10/30/16 Anaerobic Culture, resulted pending Diagnostics: X-RAY CHEST ONE VIEW, PORTABLE (10/30/16) IMPRESSION: 1. No pneumothorax post right thoracentesis. 2. Residual right pleural effusion and persistent bibasilar airspace opacities consistent with atelectasis versus pneumonia. Continued radiographic surveillance to resolution is recommended. Dictated by: Mehdi KULKARNI Interpreted: Tad Perez MD on 10/30/2016 at 16: 48 Transcribed by: WILLI on 10/30/2016 at 16:49 US CHEST/PLEURAL SONOGRAM (10/28/16) IMPRESSION: Multiloculated right pleural effusion. An empyema cannot be excluded. Surgical consultation is recommended. Dictated by: Mehdi KULKARNI Interpreted: Mer Mandujano MD on 10/29/2016 at 16:57 Transcribed by: MARAH on 10/29/2016 at 16:58 Approved by: Mer Mandujano M.D. on 10/29/2016 at 17:52 CT CHEST, ABDOMEN AND PELVIS WTIH CONTRAST (10/29/16) IMPRESSION: 1. Bilateral consolidation in the lungs consistent with pneumonia with areas of cavitation suspicious for developing pulmonary abscesses in the right lower lobe and left lingula. 2. Bilateral pleural effusions, moderate on the right and small the left. 3. Decreased prominence of heterogeneous renal enhancement on the prior study compatible with pyelonephritis. There is also decrease in size of a small left perinephric collection consistent with a small perinephric abscess. 4. Cholelithiasis with mild gallbladder wall thickening. If there is clinical suspicion for cholecystitis, recommend further evaluation with ultrasound. Dictated by: Geovanny Ruiz M.D. on 10/28/2016 at 18:22 Approved by: Geovanny Ruiz M.D. on 10/28/2016 at 18:31 . Assessment & Plan Impression 26 y/o male IV drug user admitted for bacterial endocarditis, pneumonia and sepsis. Now s/p right-sided thoracentesis on 10/30 which drained approximately 500mls of exudative fluid. Surgery consulted regarding possible chest tube placement or VATS due to concern for empyema or multi-loculated parapneumonic effusion. Pleural fluid pH of 7.7, glucose 76, gram stain negative and cultures still pending. Problems: Plan -Improvement radiographically and clinically following thoracentesis yesterday. Discussed patient with Pulmonary team, who agree to observe the patient for 2-3 more days following the thoracentesis and repeat chest CT by Thursday. Will re- evaluate following repeat chest CT. If pleural effusion persists or patient is not still improving clinically with consider chest tube placement and/or possible VATS. VTE Prophylaxis: Sub-Q Heparin (Unfractionated) Resuscitation Status: CPR: Attempt Resuscitation Attending Statement: I agree with Dr. Rachel's assessment and plan. Discussed case today with Pulmonary. Sayda Rachel DO Oct 31, 2016 08:40 Gian Rodríguez MD Nov 10, 2016 07:15
[2016-10-31] MEDS: cloNIDine 0.1 mg Tablet PO SCH ×3 (09:29→20:09)
--- NOTE | 2016-10-31 13:07 | DRSVH ---
PROCEDURE: X-RAY CHEST ONE VIEW, PORTABLE ([id number]) INDICATIONS: sob, pleural effusion TECHNIQUE: One view of the chest was acquired. COMPARISON: [facility], CR, XR CHEST 1VW (PORTABLE), 10/30/2016, 15:34. FINDINGS: Surgical changes and devices: Stable position right PICC. Lungs and pleura: No pneumothorax.. Residual right pleural effusion and persistent bibasilar air spa ce opacities are present. Mediastinum: Mediastinal contours appear normal. Heart size is normal. Bones and chest wall: No suspicious bony lesions. Overlying soft tissues appear unremarkable. IMPRESSION: 1. Persistent small right pleural effusion and bibasilar airspace opacities. Continued radiographic s urveillance to resolution is recommended. Dictated by: Mehdi Garces [facility] Interpreted: Dana Caicedo MD on 10/31/2016 at 13:06 Transcribed by: CASTRO on 10/31/2016 at 13:07 Approved by: Dana Caicedo MD, PhD on 10/31/2016 at 16:37
--- NOTE | 2016-10-31 17:05 | PROG NOTE ---
[address] [address] PROGRESS NOTE PATIENT: LORI BALDWIN : 1990 MR#: [id number] ADMIT: 10/20/2016 JOB ID: [id number] DATE: 10/31/2016 PULMONARY PROGRESS NOTE: The patient is a 26-year-old man with history of heroin and methamphetamine IV drug abuse, admitted with MRSA bacteremia, and endocarditis, as well as an exudative right pleural effusion now. INTERVAL HISTORY: He feels better after the thoracentesis yesterday. He says his chest pain has improved as has his cough. His fever curve also seems slightly improved. Previously, he was having fevers as high as 40.7. Yesterday, his temperature was less than 39. REVIEW OF SYSTEMS: See above. PHYSICAL EXAMINATION: T-max 38.6, pulse 72, respirations 20, BP 99/49, sats 94% on room air. General: Alert young man, sitting up in bed, appears comfortable. Chest: Poor air movement at the right base, otherwise clear. LABORATORIES: Reviewed. Notably, pleural fluid analysis shows 54 WBCs, 1200 RBCs, only 7% PMNs on the WBCs, 57% monocytes, and 34% lymphocytes, with only 2% eosinophils. LDH is 512. Protein is 4.8. Glucose is 76 and pH is 7.7. Cultures: Gram stain and culture shows no polys and no organisms. IMAGING: Chest x-ray shows improvement in pleural effusion with small residual right effusion but also persistent dense consolidation at the right base. ASSESSMENT AND RECOMMENDATIONS: 1. Exudative right pleural effusion, likely complex parapneumonic effusion. 2. MRSA bacteremia with suspected endocarditis, on clinical criteria. 3. Cavitary left lung lesion--most likely septic emboli. 4. History of IV drug abuse. 5. History of hepatitis C. This 26-year-old man is presenting with MRSA bacteremia and likely clinical endocarditis. He developed a right pleural effusion over the course of his hospitalization, as well as worsening right lung consolidation. He had a thoracentesis done yesterday with removal of 550 cc of clear yellow fluid. The appearance was not consistent with pus. On testing, it does meet criteria for exudate, but surprisingly, there are not many white cells or neutrophils on the fluid. It does not meet criteria for empyema. He is feeling a lot better. His fever curve has improved slightly, although it may be too early to tell. With regards to whether this effusion needs any additional intervention, such as chest tube or decortication by General Surgery, I spoke with Dr. Erich Rodríguez this morning, who was covering for General Surgery, and at this point, I recommended that we wait and reassess to see if the patient really needs a chest tube or decortication, and I think the imaging will help direct that.We will get a CT scan done to reassess the pleural space. Symptomatically, however, he seems to be improving. I will follow up on him tomorrow. PRINCE
--- NOTE | 2016-10-31 17:46 | PCM.PNMED ---
Subjective Date of Service Oct 31, 2016 Subjective denies any new issues/complaints. Exam Vital Signs Vital Sign - Last Date Time Temp Pulse Resp B/P Pulse Ox O2 Delivery O2 Flow Rate FiO2 10/31/16 13:35 38.2 72 20 99/49 94 Room Air Intake and Output 10/30/16 10/30/16 10/31/16 Cumulative From/Thru 15:00 23:00 07:00 10/20/16 00:16 - 10/31/16 06:33 Intake Total 1020 ml 1700 ml 89668 ml Output Total 2300 ml 1900 ml 20461 ml Balance -1280 ml -200 ml 31555 ml Intake Oral 1020 ml 400 ml 05597 ml IV Total 1300 ml 05113 ml Output Urine Total 2300 ml 1900 ml 81772 ml # Voids 5 16 # Bowel Movements 0 0 2 Exam General: Alert, Cooperative, No Acute Distress Eyes: Scleral Anicteric Mouth: Mucous Membr Moist/[place] Neck: Supple Chest & Lungs: Chest Wall Normal, Clear to auscultation bilat Cardiovascular: Regular Rate/Rhythm Abdomen: Non-tender, Non-distended, Normoactive bowel tones, Soft Extremities: No cyanosis/clubbing/edema bilat Neurological: Grossly Neurologically Intact, Normal Speech IVs and Medications Medications Reviewed: Medications were reviewed in detail Lab and Diagnostics Result Diagram: 10/29/16 0532 10/30/16 0539 X-Rays, CTs and MRIs CT scan of the brain negative for intracranial process, CT scan of abdomen and pelvis showed septic emboli to kidneys bilaterally, CT angio of chest showed multiple septic emboli to lungs bilaterally, no over vegetations of heart valves noted on CT chest 12-lead ECG ECG Interpretation: Sinus tachycardia rate 114 Time: 01:12 Interpreted by: ED physician Cardiac Echo Impressions Echocardiogram Report Name: LORI BALDWIN Study Date: 10/20/2016 Height: 70 in Hospital Exam Location: [facility] Weight: 177 lb Gender: Male BSA: 2.0 m2 : 1990 Age: 26 yrs BP: 106/59 mmHg Reason For Study: Endocarditis History: IVDA, SMOKER Ordering Physician: Performed By: Sarika OvallesRetreat Doctors' HospitalIST [facility] Interpretation Summary The left ventricle is normal in size, wall thickness, and systolic function without any focal wall motion abnormalities. The ejection fraction is estimated to be 60-65%. The right ventricle is normal in size and function. The left atrium is mildly dilated. Right atrial size is normal. There is no obvious valvular vegetation identified on this exam. Consider EFREN if there is a high degree of clinical suspicion for endocarditis and clinically appropriate. There is no significant valvular heart disease. The aortic root is normal size. Procedure: A two-dimensional transthoracic echocardiogram with color flow and Doppler was performed. The study quality was technically adequate. There is no prior echocardiogram noted for this patient. The patient was in normal sinus rhythm during the exam. Left Ventricle: The left ventricle is normal in size, wall thickness, and systolic function without any focal wall motion abnormalities. A false chord is noted (normal variant). The ejection fraction is estimated to be 60-65%. The transmitral spectral Doppler flow pattern is normal for age. Right Ventricle: The right ventricle is normal in size and function. Atria: The left atrium is mildly dilated. Right atrial size is normal. There is no Doppler evidence for an interatrial shunt. Mitral Valve: The mitral valve is normal in structure and function. There is trace mitral regurgitation. Aortic Valve: The aortic valve is normal in structure and function. No aortic regurgitation is present. Tricuspid Valve: The tricuspid valve is normal in structure and function. Pulmonary artery pressures cannot be estimated because of the lack of a measurable TR jet velocity. Pulmonic Valve: The pulmonic valve is normal in structure and function. There is no pulmonic valvular regurgitation. There is no obvious valvular vegetation identified on this exam. Consider EFREN if there is a high degree of clinical suspicion for endocarditis and clinically appropriate. There is no significant valvular heart disease. Great Vessels: The aortic root is normal size. The ascending aorta is normal in size. The IVC has a measurement of 20 mm. The patient could not perform sniff test. Pericardium/ Pleura There is no pericardial effusion. MMode/2D Measurements & Calculations LVIDd: 5.4 cm RA long axis LVOT diam LVIDs: 3.2 cm LA A2 area: 21.8 cm FS: 39.5 % LA A4 area: 23.1 cm RA area AoV Opening EPSS: 0.47 cm LA length (vol): 6.2 cm IVSd: 0.66 cm LA vol: 68.8 ml : 18.3 cm Ao root diam LVPWd: 0.71 cm LA vol index RA vol : 59.5 ml asc Aorta RA Diam: 3.2 cm IVC diam: 2.0 cm : 30.0 mm2 LV rodrigues. diameter/BSA LV sys. diameter/BSA RVD1 (basal) (cm/m^2): 2.7 (cm/m^2): 1.6 Doppler Measurements & Calculations Ao V2 max MV E max jorge MV E/A: 2.3 PA V2 max : 171.7 cm/sec : 117.0 cm/sec Med Peak E' Jorge : 99.6 cm/sec Ao max PG MV A max jorge PA mean PG : 11.8 mmHg : 50.8 cm/sec E/E' med: 8.9 Ao mean PG MV P1/2t: 66.3 msec Lat Peak E' Jorge PA Accel Time : 0.12 sec LVOT Max Jorge E/E' lat: 6.0 : 123.3 cm/sec E/e' average: 7.4 KAILYN(I,D): 3.2 cm Pulm A Revs Dur sev ratio MV A dur: 0.09 sec MV dec time MV P1/2t max jorge Ao V2 mean LV V1 max PG : 0.23 sec : 113.9 cm/sec Ao V2 VTI: 25.9 cm LV V1 VTI MVA(P1/2t): 3.3 cm2 : 20.9 cm KAILYN(V,D): 2.8 cm2 PA V2 mean KAILYN indexed to BSA Pulm A Revs Dur - MV A : 68.9 cm/sec (cm^2/m^2): 1.6 Dur: -0.01 msec Reading Physician:PM Assessment & Plan 26 y.o. M with past medical history of IVDU heroin and methamphetamine, needle sharing, three previous OD on heroin, last heroine use 7-8 hours prior to ED admission, last meth use yesterday, admitted to ED for worsening chest and abdominal pain. # Acute MRSA bacteremia. present on admission - Patient has history of IVDU heroin and methamphetamine, multiple septic emboli noted on CT of lungs and kidneys, indicative of right and left sided heart valve involvement - appreciate ID consult. will f/u w/ recs - Continue with IV vancomycin and Ceftaroline per ID - continue to check blood cultures while still febrile # Sepsis, acute. Present at the time of admission Patient also has septic pulmonary emboli and possibly pyelonephritis. - Likely source of infection is intravenous drug use - WBC 23, lactic acid 1.6 on admission - Abx as noted above # CT chest 10/28: "Bilateral consolidation in the lungs consistent with pneumonia with areas of cavitation suspicious for developing pulmonary abscesses in the right lower lobe and left lingula. Bilateral pleural effusions , moderate on the right and small the left." - appreciate pulmonology and surgery consults. will f/u w/ recs - s/p thoracentesis on 10/30/16 showing exudative right pleural effusion, likely complex parapneumonic effusion. - Cavitary left lung lesion--most likely septic emboli. - f/u repeat CT scan # Acute Urinary retention. - Possibly due to septic emboli to kidneys vs UTI vs STD/STI - Urine culture: mixed urogenital liliana - UA is negative. Will follow clinically. # IVDU heroin and methamphetamine - Prior overdoses x 3, - Clonazepam 0.5 PRN for signs of withdrawal - Patient currently on scheduled methadone and clonidine with IV Ativan and IV morphine when necessary pain - orchestrate a slow taper over the next week. # High risk behavior - IVDU, needle sharing, never screened for HIV, Hepatitis, STD/STI - HIV 1/2 screen ordered (negative) - Hepatitis panel (hep C antibody positive ) - G/C screen urine ordered Disposition: pending above issues VTE Prophylaxis: Sub-Q Heparin (Unfractionated) VTE Mechanical Devices: Intermittant Pneumatic CD Resuscitation Status: CPR: Attempt Resuscitation Anurag Rivers Oct 31, 2016 17:45
--- NOTE | 2016-10-31 18:49 | PROG NOTE ---
[address] [address] PROGRESS NOTE PATIENT: LORI BALDWIN : 1990 MR#: [id number] ADMIT: 10/20/2016 JOB ID: [id number] DATE: 10/31/2016 REASON FOR FOLLOWUP: MRSA endocarditis with persistent high-grade fevers despite negative blood cultures and complex right parapneumonic effusion. INTERVAL HISTORY: Yesterday, the patient underwent a thoracentesis of 500 cc of the rather thin greenish fluid from the right pleural space. Following this, he says his shortness of breath seemed improved, and he actually felt better. Overnight his fevers have moderated, though he continues to have high fevers, but they are not as high as they were before. He is not having chills, sore throat, or any significant cough. He denies chest pain, nausea, vomiting, or diarrhea. PHYSICAL EXAMINATION: Reveals a gentleman whose T-max the last 24 hours is 38.6 which is much better than he has been lately, currently 38.2. Pulse 72, respiratory rate 20, blood pressure 99/49, saturating 94% on room air. Examination of the mental status reveals he is clear and much more alert and cooperative today than he has been recently. Oral cavity negative. Lungs with decreased breath sounds and crackles at the right base where the fluid was withdrawn. Cardiac tones without significant murmur. Abdomen benign. No peripheral stigmata of endocarditis. LABORATORY STUDIES: White count 4600, platelet count 275,000. Creatinine 118,000. Urinalysis without white cells. Hep C is positive. It is genotype 1a. Pleural fluid has no polys and no organisms seen. Culture is negative at 24 hours. AFB cultures are also pending. Note that all our blood cultures since the have been negative. 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 We initially thought he had an empyema, but yesterday's fluid did not look terribly like an empyema. It is worth noting that the pleural fluid had a protein of 4., and an LDH of 512, so it was certainly exudative, but it does not appear grossly infected and we wait on the cultures from that. Regardless of whether the fluid was infected or not, removing it seems to have tilted his temperature curve in a favorable direction, and we now wait to see if he defervesces completely. RECOMMENDATIONS: 1. Will continue with vancomycin as our sole antibiotic for the time being. 2. We anticipate antibiotics to go through at least December 05 which is still almost five weeks from now. 3. This will have to be inpatient, as the patient is an ongoing IV drug user. 4. Close attention to his vancomycin levels would be required, as he is receiving an amazing 6 g per day of vancomycin at this point. 5. We await the cultures from the pleural space and will continue to follow closely with you. PRINCE
--- NOTE | 2016-10-31 19:23 | NUR ---
Off Floor for CT post thoracentesis with vancomycin running. Addendum: 10/31/16 at 1930 by LUCHO WILCOX RN Back from CT
--- NOTE | 2016-10-31 19:27 | NUR ---
Activity: Patient has been up adlib in his room. Patient stated that his breathing feels less labored. He continues to be on droplet contact precautions for MRSA, His fever has ranged from38.1-38.4 . He received Tylenol x2 today for his fever.
--- NOTE | 2016-10-31 19:53 | PCM.PHAPRO ---
Progress Date of Service: Oct 31, 2016 Complex right pleural effusion. . Vancomycin per Pharmacy Indication: MRSA endocarditis Vancomycin trough goal: 15-20 Labs SCr: 0.85 (on 10/30/16) Trough: 14.9 @1815 (scheduled for 1630) As the trough was drawn almost 2 hours late, the trough is appropriate (likely that the trough was between goal range at scheduled time). No adjustments at this time. Continue vancomycin 2000 mg Q8H. Pharmacy to continue to monitor and dose vancomycin. Thank you, Guerrero Duran Pharmacist Guerrero Duran Oct 31, 2016 19:53
--- NOTE | 2016-10-31 20:06 | DRSVH ---
PROCEDURE: CT CHEST, ABDOMEN AND PELVIS WITH CONTRAST ([id number]) INDICATIONS: post thoracentesis ?pleural loculations TECHNIQUE: After the administration of intravenous contrast, 5 mm thick sections acquired from the lung apices t o the symphysis. 5 mm thick coronal and sagittal reformats were acquired. Additional 7 mm thick cor onal maximum intensity projection (MIP) reformats acquired through the lungs. Optional 10-minute del ayed imaging may be performed from the kidneys to the bladder. For radiation dose reduction, the fol lowing was used: automated exposure control, adjustment of mA and/or kV according to patient size. COMPARISON: [facility], CT, CT ABD PELVIS W CON, 10/20/2016, 2:18. [facility], CT, CT CHEST ABD PELVIS W CON, 10/28/2016, 16:44. FINDINGS: Image quality: Excellent. CHEST: Lungs: Mild bilateral pleural effusions with decrease on the right compared to prior exam. The left p leural effusion is new. Prominent superimposed consolidative opacities, right greater than left are r elatively unchanged. An in addition, there is consolidative opacity within the lingula, unchanged. Se veral cavitary foci are noted within the pleural fluid, relatively unchanged. Mediastinum: No mediastinal hematomas. Heart size is normal. No pericardial effusion. Thoracic ao rta and pulmonary arteries demonstrate normal size and enhancement. No mediastinal or hilar adenopat hy. Esophagus is normal in caliber. No hiatal hernia. Chest wall: No rib fractures. No subcutaneous emphysema. No axillary or supraclavicular adenopathy . Thyroid gland is unremarkable. ABDOMEN: Solid organs: Liver and spleen are normal in size and enhancement, without lacerations. Gallbladder is demonstrates several luminal calcifications. Biliary system is non-dilated. Pancreas enhances n ormally, without transection. No adrenal hematomas. There is continued interval improvement of the l eft kidney with only minimal residual appearance of perinephric abscess. Right kidney is unremarkable . Peritoneum and bowel: No free fluid or air. Unenhanced bowel loops demonstrate normal wall thicknes s and caliber. Nodes and vessels: No retroperitoneal or mesenteric adenopathy. Aorta and inferior vena cava are no rmal in size and enhancement. Miscellaneous: No ventral hernias. PELVIS: Genitourinary: Bladder wall thickness is normal. Miscellaneous: No inguinal hernias or adenopathy. Bones: Pelvic ring and hip joints appear intact. No vertebral compression fractures. IMPRESSION: 1. Mild bilateral pleural effusions with interval decrease on the right and interval development of t he left. 2. Relatively unchanged appearance of cavitary foci within the areas of consolidation and effusion co mpared to prior exam. 3. No enhancing loculations identified within the pleural effusions. However, if concern for loculati ons persist, ultrasound is recommended for further evaluation 4. Continued interval improvement of left perinephric abscess. Dictated by: Rere Mina M.D. on 10/31/2016 at 19:51 Approved by: Rere Mina M.D. on 10/31/2016 at 20:04
[2016-11-01] MEDS: Vancomycin Inj 2,000 MG in 0.9% Sodium Chloride 500 ML IV SCH ×3 (02:46→17:42)
--- NOTE | 2016-11-01 03:17 | NUR ---
Tachycardia on ambulation / Insomnia Pulse reached >140 during night when patient exited the bed to use urinal and produced 1000cc. Upon lying down returned to 80bpm. Administered 1mg Ativan for anxiety and insomnia @ 22:00
[2016-11-01 03:28] VITALS: BP 116/67; PULSE 88; RESP 18; O2SAT 94
--- NOTE | 2016-11-01 04:02 | NUR ---
Febrile @03:28 temperature 40.4. Administered 650mg Tylenol, placed two ice packs and notified MD. Addendum: 11/01/16 at 0437 by LUCHO WILCOX RN @04:36 temperature 39.7
[2016-11-01 04:59] VITALS: PULSE 68
[2016-11-01] MEDS: Vancomycin Dose per Pharmacist XX SCH (08:30)
[2016-11-01] MEDS: 0.9% Sodium Chloride 1,000 ML IV SCH (09:08)
[2016-11-01] MEDS: Sodium Chloride LOK Flush 10 mL Syringe IVFLUSH SCH ×2 (09:08→15:37)
[2016-11-01] MEDS: cloNIDine 0.1 mg Tablet PO SCH ×3 (09:08→20:30)
[2016-11-01 09:55] VITALS: PULSE 68
--- NOTE | 2016-11-01 10:21 | NUR ---
Social Work: Continued d/c planning Data: Pt is on day 12 of hospitalization. EMR reviewed, pt discussed in rounds. states pt not medically stable for d/c at this time. [facility] [place] and has authorization from pt's insurance for him to go there once medically stable to complete IVABX. Edwards CDP to see pt. RA[employer]PERATIONS CONTROLLER will continue to follow. Assessment: Pt who is independent at baseline, IV drug use. Plan: [facility] [place] accepted pt and has authorization from pt's insurance for him to go there once medically stable to complete IVABX. Edwards CDP to see pt. RA[employer] OPERATIONS CONTROLLER will continue to follow. KINGA Murphy
--- NOTE | 2016-11-01 13:29 | PROG NOTE ---
[address] [address] PROGRESS NOTE PATIENT: LORI BALDWIN : 1990 MR#: [id number] ADMIT: 10/20/2016 JOB ID: [id number] DATE: 11/01/2016 PULMONARY PROGRESS NOTE: The patient is a 26-year-old man with history of IV heroin and methamphetamine use admitted with MRSA bacteremia with endocarditis as well as an exudative pleural effusion. INTERVAL HISTORY: After a brief period of lower grade temperatures, his fevers are back up to 40+ degrees this morning. He says his chest pain, cough are slightly worse compared to yesterday as is his shortness of breath. REVIEW OF SYSTEMS: As above. PHYSICAL EXAMINATION: T-max of 40.4, pulse 88, respirations 18, BP 116/67, sats 94% on room air. General: Young man lying in bed, comfortably breathing. Chest: Decreased breath sounds at the right base, otherwise clear. LABORATORIES: Reviewed. Notable for pleural fluid cultures. Negative from October 30. IMAGING: CT of the chest, abdomen and pelvis reviewed and shows a right-sided pleural effusion tracking into the fissure, slightly improved compared to prior. No pleural enhancement. The perinephric abscess is improved compared to prior. ASSESSMENT AND RECOMMENDATIONS: 1. Exudative right pleural effusion status post thoracentesis October 30. 2. MRSA bacteremia with clinical endocarditis. 3. Cavitary lung lesion on the left, most likely due to septic emboli. 4. History of IV drug use. 5. History of hepatitis C. A 26-year-old man with MRSA bacteremia, and clinical endocarditis with embolic phenomena here with persistent high fevers that improved for about 24 hours post thoracentesis but are back up to 40+ degrees this morning. Follow up chest CT does not show any pleural enhancement or significant loculation but does shows some persistent effusion. I spoke with Dr. Yoon today. At this point, I think it is reasonable to continue antibiotic therapy and see how he does over the next few days but if fevers persist and chest x-ray changes do not improve, then I think it is reasonable to consider VATS decortication rather than a chest tube. I will continue to follow.
[2016-11-01 14:40] VITALS: BP 111/60; PULSE 77; RESP 20; O2SAT 95
--- NOTE | 2016-11-01 15:19 | PCM.PNMED ---
Subjective Date of Service Nov 01, 2016 Subjective denies any new issues/complaints. Exam Vital Signs Vital Sign - Last Date Time Temp Pulse Resp B/P Pulse Ox O2 Delivery O2 Flow Rate FiO2 11/01/16 14:40 38.1 77 20 111/60 95 Room Air Intake and Output 10/31/16 10/31/16 11/01/16 Cumulative From/Thru 15:00 23:00 07:00 10/20/16 00:16 - 11/01/16 06:37 Intake Total 2570 ml 2150 ml 76682 ml Output Total 3200 ml 2700 ml 28656 ml Balance -630 ml -550 ml 95763 ml Intake Oral 1350 ml 800 ml 14740 ml IV Total 1220 ml 1350 ml 34208 ml Output Urine Total 3200 ml 2700 ml 91283 ml # Voids 16 # Bowel Movements 0 0 2 Exam General: Alert, Cooperative, No Acute Distress Eyes: Scleral Anicteric Mouth: Mucous Membr Moist/[place] Neck: Supple Chest & Lungs: Chest Wall Normal, Clear to auscultation bilat Cardiovascular: Regular Rate/Rhythm Abdomen: Non-tender, Non-distended, Normoactive bowel tones, Soft Extremities: No cyanosis/clubbing/edema bilat Neurological: Grossly Neurologically Intact, Normal Speech IVs and Medications Medications Reviewed: Medications were reviewed in detail Lab and Diagnostics Result Diagram: 10/29/16 0532 11/01/16 0540 X-Rays, CTs and MRIs CT scan of the brain negative for intracranial process, CT scan of abdomen and pelvis showed septic emboli to kidneys bilaterally, CT angio of chest showed multiple septic emboli to lungs bilaterally, no over vegetations of heart valves noted on CT chest 12-lead ECG ECG Interpretation: Sinus tachycardia rate 114 Time: 01:12 Interpreted by: ED physician Cardiac Echo Impressions Echocardiogram Report Name: LORI BALDWIN Study Date: 10/20/2016 Height: 70 in Hospital Exam Location: [facility] Weight: 177 lb Gender: Male BSA: 2.0 m2 : 1990 Age: 26 yrs BP: 106/59 mmHg Reason For Study: Endocarditis History: IVDA, SMOKER Ordering Physician: Performed By: Sarika ROEIST [facility] Interpretation Summary The left ventricle is normal in size, wall thickness, and systolic function without any focal wall motion abnormalities. The ejection fraction is estimated to be 60-65%. The right ventricle is normal in size and function. The left atrium is mildly dilated. Right atrial size is normal. There is no obvious valvular vegetation identified on this exam. Consider EFREN if there is a high degree of clinical suspicion for endocarditis and clinically appropriate. There is no significant valvular heart disease. The aortic root is normal size. Procedure: A two-dimensional transthoracic echocardiogram with color flow and Doppler was performed. The study quality was technically adequate. There is no prior echocardiogram noted for this patient. The patient was in normal sinus rhythm during the exam. Left Ventricle: The left ventricle is normal in size, wall thickness, and systolic function without any focal wall motion abnormalities. A false chord is noted (normal variant). The ejection fraction is estimated to be 60-65%. The transmitral spectral Doppler flow pattern is normal for age. Right Ventricle: The right ventricle is normal in size and function. Atria: The left atrium is mildly dilated. Right atrial size is normal. There is no Doppler evidence for an interatrial shunt. Mitral Valve: The mitral valve is normal in structure and function. There is trace mitral regurgitation. Aortic Valve: The aortic valve is normal in structure and function. No aortic regurgitation is present. Tricuspid Valve: The tricuspid valve is normal in structure and function. Pulmonary artery pressures cannot be estimated because of the lack of a measurable TR jet velocity. Pulmonic Valve: The pulmonic valve is normal in structure and function. There is no pulmonic valvular regurgitation. There is no obvious valvular vegetation identified on this exam. Consider EFREN if there is a high degree of clinical suspicion for endocarditis and clinically appropriate. There is no significant valvular heart disease. Great Vessels: The aortic root is normal size. The ascending aorta is normal in size. The IVC has a measurement of 20 mm. The patient could not perform sniff test. Pericardium/ Pleura There is no pericardial effusion. MMode/2D Measurements & Calculations LVIDd: 5.4 cm RA long axis LVOT diam LVIDs: 3.2 cm LA A2 area: 21.8 cm FS: 39.5 % LA A4 area: 23.1 cm RA area AoV Opening EPSS: 0.47 cm LA length (vol): 6.2 cm IVSd: 0.66 cm LA vol: 68.8 ml : 18.3 cm Ao root diam LVPWd: 0.71 cm LA vol index RA vol : 59.5 ml asc Aorta RA Diam: 3.2 cm IVC diam: 2.0 cm : 30.0 mm2 LV rodrigues. diameter/BSA LV sys. diameter/BSA RVD1 (basal) (cm/m^2): 2.7 (cm/m^2): 1.6 Doppler Measurements & Calculations Ao V2 max MV E max jorge MV E/A: 2.3 PA V2 max : 171.7 cm/sec : 117.0 cm/sec Med Peak E' Jorge : 99.6 cm/sec Ao max PG MV A max jorge PA mean PG : 11.8 mmHg : 50.8 cm/sec E/E' med: 8.9 Ao mean PG MV P1/2t: 66.3 msec Lat Peak E' Jorge PA Accel Time : 0.12 sec LVOT Max Jorge E/E' lat: 6.0 : 123.3 cm/sec E/e' average: 7.4 KAILYN(I,D): 3.2 cm Pulm A Revs Dur sev ratio MV A dur: 0.09 sec MV dec time MV P1/2t max jorge Ao V2 mean LV V1 max PG : 0.23 sec : 113.9 cm/sec Ao V2 VTI: 25.9 cm LV V1 VTI MVA(P1/2t): 3.3 cm2 : 20.9 cm KAILYN(V,D): 2.8 cm2 PA V2 mean KAILYN indexed to BSA Pulm A Revs Dur - MV A : 68.9 cm/sec (cm^2/m^2): 1.6 Dur: -0.01 msec Reading Physician:PM Assessment & Plan 26 y.o. M with past medical history of IVDU heroin and methamphetamine, needle sharing, three previous OD on heroin, last heroine use 7-8 hours prior to ED admission, last meth use yesterday, admitted to ED for worsening chest and abdominal pain. # Acute MRSA bacteremia. present on admission - Patient has history of IVDU heroin and methamphetamine, multiple septic emboli noted on CT of lungs and kidneys, indicative of right and left sided heart valve involvement - appreciate ID consult. will f/u w/ recs - Continue with IV vancomycin and Ceftaroline per ID # Sepsis, acute. Present at the time of admission Patient also has septic pulmonary emboli and possibly pyelonephritis. - Likely source of infection is intravenous drug use - WBC 23, lactic acid 1.6 on admission - Abx as noted above # CT chest 10/28: "Bilateral consolidation in the lungs consistent with pneumonia with areas of cavitation suspicious for developing pulmonary abscesses in the right lower lobe and left lingula. Bilateral pleural effusions , moderate on the right and small the left." - appreciate pulmonology and surgery consults. will f/u w/ recs - s/p thoracentesis on 10/30/16 showing exudative right pleural effusion, likely complex parapneumonic effusion. - Cavitary left lung lesion--most likely septic emboli. # Acute Urinary retention. - Possibly due to septic emboli to kidneys vs UTI vs STD/STI - Urine culture: mixed urogenital liliana - UA is negative. Will follow clinically. # IVDU heroin and methamphetamine - Prior overdoses x 3, - Clonazepam 0.5 PRN for signs of withdrawal - Patient currently on scheduled methadone and clonidine with IV Ativan and IV morphine when necessary pain - orchestrate a slow taper over the next week. # High risk behavior - IVDU, needle sharing, never screened for HIV, Hepatitis, STD/STI - HIV 1/2 screen ordered (negative) - Hepatitis panel (hep C antibody positive ) - G/C screen urine ordered Disposition: pending above issues VTE Prophylaxis: Sub-Q Heparin (Unfractionated) VTE Mechanical Devices: Intermittant Pneumatic CD Resuscitation Status: CPR: Attempt Resuscitation Anurag Rivers Nov 01, 2016 15:19
--- NOTE | 2016-11-01 17:47 | NUR ---
Fever Fever 38.1. PRN Tylenol given as ordered with ineffective results with continuous fever 38.1. Blood culture results pending. Scheduled Vancomycin via IV as ordered. Encouraged PO fluids. Stable BP, pulse, and oxygenation. Having dinner at bed side. Continuous contact precautions. alert and orientedX3. Stable mood. Able to make needs known. call light with in reach for safety. Continue to monitor fever, Vital signs, pain and safety.
[2016-11-01 20:18] VITALS: BP 95/52; PULSE 51; RESP 18; O2SAT 98
[2016-11-02] VITALS (9 sets, daily range): BP systolic 103–155; BP diastolic 58–72; PULSE 60–88; RESP 18–20; O2SAT 93–99
[2016-11-02] MEDS: Sodium Chloride LOK Flush 10 mL Syringe IVFLUSH SCH ×3 (00:49→16:30)
[2016-11-02] MEDS: Vancomycin Inj 2,000 MG in 0.9% Sodium Chloride 500 ML IV SCH ×3 (00:49→16:36)
[2016-11-02] MEDS: 0.9% Sodium Chloride 1,000 ML IV SCH ×2 (03:42→20:10)
--- NOTE | 2016-11-02 07:38 | NUR ---
[facility] [employer] environmental services floor tech called and stated Pt's HR dropping to 30's. Pt sleeping in bed upon assessment. Woke pt, pt alert and oriented X3, stating wanting to sleep. Pt's HR 40-50's while sleeping. BP 95/52. HS dose of clonidine held. Call light within reach, frequent rounding.
[2016-11-02] MEDS ORDERED: Vancomycin Serum Trough XX ONE (08:30)
[2016-11-02] MEDS: cloNIDine 0.1 mg Tablet PO SCH ×3 (08:38→20:09)
[2016-11-02] MEDS: Vancomycin Dose per Pharmacist XX SCH (08:38)
--- NOTE | 2016-11-02 09:36 | PCM.PHAPRO ---
Progress . Vancomycin Management: -pt is currently receiving Vancomycin 2gm iv [id number] for mrsa endocarditis as a result of ivdu -trough level returned this morning at 17.9, within goal range of 15-20 -will continue to monitor periodic trough levels and serum creatinine as pt is at risk for accumulation due to high dose regimen Kathleen Mcclendon [facility] Nov 02, 2016 09:36
--- NOTE | 2016-11-02 14:35 | PROG NOTE ---
[address] [address] PROGRESS NOTE PATIENT: LORI BALDWIN : 1990 MR#: [id number] ADMIT: 10/20/2016 JOB ID: [id number] DATE: 11/02/2016 PULMONARY PROGRESS NOTE: The patient is a 26-year-old man with history of IV drug use admitted with MRSA bacteremia and endocarditis based on clinical criteria, complicated by an exudative right pleural effusion and persistent fevers. INTERVAL HISTORY: T-max later yesterday was around 39.2. He has not had any spikes over 40s since early hours of yesterday morning/the night before. Symptom-dobbs, he still has some chest pain with breathing, some shortness of breath and cough, but these are not really getting any worse and may be slightly better. He does have chills/sweats with his fevers. REVIEW OF SYSTEMS: As above. PHYSICAL EXAMINATION: Vital signs reviewed and notable for T-max of 39.2. He is on room air. General: Young man, sitting up in bed, appears kind of lethargic and sleepy. Chest: Decreased breath sounds at the right base, as before. LABORATORIES: Reviewed. WBC stable. ASSESSMENT AND RECOMMENDATIONS: 1. Methicillin-resistant Staphylococcus aureus bacteremia and clinical endocarditis. 2. Perinephric abscess--improving on imaging. 3. Exudative right pleural effusion--does not meet criteria for empyema. Consistent with a complex parapneumonic effusion. 4. History of intravenous drug use. This 26-year-old man with MRSA bacteremia has had persistent fevers despite appropriate antibiotic therapy and clearing of blood cultures. He has been on antibiotics now for close to two weeks. He had a thoracentesis a few days ago with removal of 550 cc of clear yellow fluid from the right chest, and with this, he had about 24 hours of improvement in his fever curve, but his fevers are back up to over 40 degrees yesterday morning. Fluid analysis is not consistent with an empyema but it is consistent with an exudate. Followup CT of the chest, abdomen and pelvis showed that his perinephric abscess is improving, but his pleural effusion on the right seems to have reaccumulated slightly. He also has a new tiny effusion on the left. I really do not think the new effusion on the left could be the source of this high fever because it has developed after two weeks of antibiotics and it is pretty small and will be difficult to tap. I remain concerned about the renal abscess or right-sided effusion or another source for his persistent fevers. Discussed with Dr. Yoon with Dr. Pagan. If he continues to have fevers and we do not find an alternative source, then I think the next step would be considering VATS decortication on the right. Dr. Roger takes over the pulmonary service tomorrow. Dr. Pagan is managing antibiotics--vancomycin.
--- NOTE | 2016-11-02 15:39 | PCM.PNMED ---
Subjective Date of Service Nov 02, 2016 Subjective denies any new issues/complaints. Exam Vital Signs Vital Sign - Last Date Time Temp Pulse Resp B/P Pulse Ox O2 Delivery O2 Flow Rate FiO2 11/02/16 14:00 36.9 66 20 121/69 99 Room Air Intake and Output 11/01/16 11/01/16 11/02/16 Cumulative From/Thru 15:00 23:00 07:00 10/20/16 00:16 - 11/02/16 06:50 Intake Total 2350 ml 600 ml 40181 ml Output Total 950 ml 1626 ml 65252 ml Balance 1400 ml -1026 ml 27599 ml Intake Oral 1144 ml 600 ml 55979 ml IV Total 1206 ml 35633 ml Output Urine Total 950 ml 1625 ml 14683 ml Emesis 1 ml 1 ml # Voids 16 # Bowel Movements 2 Exam General: Alert, Cooperative, No Acute Distress Eyes: Scleral Anicteric Mouth: Mucous Membr Moist/[place] Neck: Supple Chest & Lungs: Chest Wall Normal, Clear to auscultation bilat Cardiovascular: Regular Rate/Rhythm Abdomen: Non-tender, Non-distended, Normoactive bowel tones, Soft Extremities: No cyanosis/clubbing/edema bilat Neurological: Grossly Neurologically Intact, Normal Speech IVs and Medications Medications Reviewed: Medications were reviewed in detail Lab and Diagnostics Result Diagram: 10/29/16 0532 11/01/16 0540 X-Rays, CTs and MRIs CT scan of the brain negative for intracranial process, CT scan of abdomen and pelvis showed septic emboli to kidneys bilaterally, CT angio of chest showed multiple septic emboli to lungs bilaterally, no over vegetations of heart valves noted on CT chest 12-lead ECG ECG Interpretation: Sinus tachycardia rate 114 Time: 01:12 Interpreted by: ED physician Cardiac Echo Impressions Echocardiogram Report Name: LORI BALDWIN Study Date: 10/20/2016 Height: 70 in Hospital Exam Location: [facility] Weight: 177 lb Gender: Male BSA: 2.0 m2 : 1990 Age: 26 yrs BP: 106/59 mmHg Reason For Study: Endocarditis History: IVDA, SMOKER Ordering Physician: Performed By: Sarika OvallesCentra Southside Community HospitalIST [facility] Interpretation Summary The left ventricle is normal in size, wall thickness, and systolic function without any focal wall motion abnormalities. The ejection fraction is estimated to be 60-65%. The right ventricle is normal in size and function. The left atrium is mildly dilated. Right atrial size is normal. There is no obvious valvular vegetation identified on this exam. Consider EFREN if there is a high degree of clinical suspicion for endocarditis and clinically appropriate. There is no significant valvular heart disease. The aortic root is normal size. Procedure: A two-dimensional transthoracic echocardiogram with color flow and Doppler was performed. The study quality was technically adequate. There is no prior echocardiogram noted for this patient. The patient was in normal sinus rhythm during the exam. Left Ventricle: The left ventricle is normal in size, wall thickness, and systolic function without any focal wall motion abnormalities. A false chord is noted (normal variant). The ejection fraction is estimated to be 60-65%. The transmitral spectral Doppler flow pattern is normal for age. Right Ventricle: The right ventricle is normal in size and function. Atria: The left atrium is mildly dilated. Right atrial size is normal. There is no Doppler evidence for an interatrial shunt. Mitral Valve: The mitral valve is normal in structure and function. There is trace mitral regurgitation. Aortic Valve: The aortic valve is normal in structure and function. No aortic regurgitation is present. Tricuspid Valve: The tricuspid valve is normal in structure and function. Pulmonary artery pressures cannot be estimated because of the lack of a measurable TR jet velocity. Pulmonic Valve: The pulmonic valve is normal in structure and function. There is no pulmonic valvular regurgitation. There is no obvious valvular vegetation identified on this exam. Consider EFREN if there is a high degree of clinical suspicion for endocarditis and clinically appropriate. There is no significant valvular heart disease. Great Vessels: The aortic root is normal size. The ascending aorta is normal in size. The IVC has a measurement of 20 mm. The patient could not perform sniff test. Pericardium/ Pleura There is no pericardial effusion. MMode/2D Measurements & Calculations LVIDd: 5.4 cm RA long axis LVOT diam LVIDs: 3.2 cm LA A2 area: 21.8 cm FS: 39.5 % LA A4 area: 23.1 cm RA area AoV Opening EPSS: 0.47 cm LA length (vol): 6.2 cm IVSd: 0.66 cm LA vol: 68.8 ml : 18.3 cm Ao root diam LVPWd: 0.71 cm LA vol index RA vol : 59.5 ml asc Aorta RA Diam: 3.2 cm IVC diam: 2.0 cm : 30.0 mm2 LV rodrigues. diameter/BSA LV sys. diameter/BSA RVD1 (basal) (cm/m^2): 2.7 (cm/m^2): 1.6 Doppler Measurements & Calculations Ao V2 max MV E max jorge MV E/A: 2.3 PA V2 max : 171.7 cm/sec : 117.0 cm/sec Med Peak E' Jorge : 99.6 cm/sec Ao max PG MV A max jorge PA mean PG : 11.8 mmHg : 50.8 cm/sec E/E' med: 8.9 Ao mean PG MV P1/2t: 66.3 msec Lat Peak E' Jorge PA Accel Time : 0.12 sec LVOT Max Jorge E/E' lat: 6.0 : 123.3 cm/sec E/e' average: 7.4 KAILYN(I,D): 3.2 cm Pulm A Revs Dur sev ratio MV A dur: 0.09 sec MV dec time MV P1/2t max jorge Ao V2 mean LV V1 max PG : 0.23 sec : 113.9 cm/sec Ao V2 VTI: 25.9 cm LV V1 VTI MVA(P1/2t): 3.3 cm2 : 20.9 cm KAILYN(V,D): 2.8 cm2 PA V2 mean KAILYN indexed to BSA Pulm A Revs Dur - MV A : 68.9 cm/sec (cm^2/m^2): 1.6 Dur: -0.01 msec Reading Physician:PM Assessment & Plan 26 y.o. M with past medical history of IVDU heroin and methamphetamine, needle sharing, three previous OD on heroin, last heroine use 7-8 hours prior to ED admission, last meth use yesterday, admitted to ED for worsening chest and abdominal pain. # Acute MRSA bacteremia. present on admission - Patient has history of IVDU heroin and methamphetamine, multiple septic emboli noted on CT of lungs and kidneys, indicative of right and left sided heart valve involvement - appreciate ID consult. will f/u w/ recs - Continue with IV vancomycin and Ceftaroline per ID # Sepsis, acute. Present at the time of admission Patient also has septic pulmonary emboli and possibly pyelonephritis. - Likely source of infection is intravenous drug use - WBC 23, lactic acid 1.6 on admission - Abx as noted above # CT chest 10/28: "Bilateral consolidation in the lungs consistent with pneumonia with areas of cavitation suspicious for developing pulmonary abscesses in the right lower lobe and left lingula. Bilateral pleural effusions , moderate on the right and small the left." - appreciate pulmonology and surgery consults. will f/u w/ recs - s/p thoracentesis on 10/30/16 showing exudative right pleural effusion, likely complex parapneumonic effusion. - Cavitary left lung lesion--most likely septic emboli. # Acute Urinary retention. - Possibly due to septic emboli to kidneys vs UTI vs STD/STI - Urine culture: mixed urogenital liliana - UA is negative. Will follow clinically. # IVDU heroin and methamphetamine - Prior overdoses x 3, - Clonazepam 0.5 PRN for signs of withdrawal - Patient currently on scheduled methadone and clonidine with IV Ativan and IV morphine when necessary pain - orchestrate a slow taper over the next week. # High risk behavior - IVDU, needle sharing, never screened for HIV, Hepatitis, STD/STI - HIV 1/2 screen ordered (negative) - Hepatitis panel (hep C antibody positive ) # Acute hyponatremia. not poa. ongoing but improved - f/u BMP Disposition: pending above issues VTE Prophylaxis: Sub-Q Heparin (Unfractionated) VTE Mechanical Devices: Intermittant Pneumatic CD Resuscitation Status: CPR: Attempt Resuscitation Anurag Rivers Nov 02, 2016 15:39
--- NOTE | 2016-11-02 16:09 | PROG NOTE ---
[address] [address] PROGRESS NOTE PATIENT: LORI BALDWIN : 1990 MR#: [id number] ADMIT: 10/20/2016 JOB ID: [id number] DATE: 11/02/2016 REASON FOR FOLLOWUP: MRSA endocarditis in an IV drug user with bilateral pleural effusions and a perinephric abscess. The patient now enters his in the hospital. Despite aggressive therapy directed at his MRSA endocarditis and longstanding resolution of positive blood cultures, the patient continues to spike high fevers. We had been very concerned about possible empyema and last week the patient underwent thoracentesis on the right which showed an exudative right pleural effusion but the Gram stain and culture have been negative. Immediately following this 500 cc thoracentesis the patient's fever curve dipped briefly, but he is now once again spiking fevers up to about the 40 degree range. The patient has mild sensation of fever with these very high fevers but otherwise does not feel bad except for being quite tired. He denies rigors, sore throat, significant cough, pleuritic chest pain, shortness of breath, nausea, vomiting, diarrhea, flank pain, or dysuria. PHYSICAL EXAMINATION: Reveals a tired but otherwise well-appearing, young male. Highest temperature 39.2 during the night. Yesterday, it was 40.4 and he continues to have these hectic, very high fevers. Pulse 68, respiratory rate 20, blood pressure 155/72. He is saturating well on room air. Alert, conversant, and in no acute distress. Oral cavity negative. Mental status normal. Lungs with decreased breath sounds, both bases, with some scattered crackles. Cardiac tones: Regular rate and rhythm without any murmur today. Abdomen benign. No flank tenderness. No skin rash. LABORATORIES: Include white count 4600, when last checked three days ago. His creatinine yesterday was 0.74. We have not obtained any other labs recently. Recall that his hep C was positive genotype A. Micro includes the negative blood cultures which are present on many days since October 22, which is the last day he had MRSA in his blood. Since then, we have at least 16 negative blood culture bottles, including some done yesterday, and I do not think we need any more right now, as it is obvious he is not bacteremic with these continued fevers. The pleural fluid is culture negative at this point, though it continues to be incubated. The repeat CT scan we obtained on October 31, shows bilateral pleural effusions which are decreased on the right after the 500 cc tap, but worse on the left. Additionally, there are cavitary areas of consolidation and effusion as seen on previous CTs and his left perinephric abscess continues to shrink. IMPRESSION: This is a difficult case of a young man with MRSA endocarditis based upon [place] criteria, who has been appropriately treated now for 25 days. Despite resolution of his blood cultures, he continues to spike to 39-40.5 degrees on an almost daily basis. We had hoped this was due to empyema and would resolve after drainage of his right pleural space, but it has not. It is possible though that even though his pleural fluid did not look as bad as was feared that he may still have some degree of complex parapneumonic effusion or infection on the right or perhaps even in the left pleural space. Also possible is that his fevers are coming from his perinephric abscess or his cavitary lung lesions, though these appear to be improving clinically. RECOMMENDATIONS: 1. Will continue with vancomycin with the plan to continue at least six weeks. 2. This case discussed today with Dr. Dickey of pulmonary and I plan to discuss it again tomorrow with Dr. Roger. He will be picking up the pulmonary team. He may need a VATS procedure on the right or even the left side as well to try and eliminate the pleural effusions as causes of his ongoing fevers. 3. Will continue to follow this complex patient very closely with you.
[2016-11-03] VITALS (8 sets, daily range): BP systolic 101–126; BP diastolic 55–68; PULSE 53–80; RESP 18; O2SAT 95–97
[2016-11-03] MEDS: Sodium Chloride LOK Flush 10 mL Syringe IVFLUSH SCH ×3 (00:54→17:23)
[2016-11-03] MEDS: Vancomycin Inj 2,000 MG in 0.9% Sodium Chloride 500 ML IV SCH ×3 (00:54→17:23)
[2016-11-03 05:34] LABS: BASOPHILS % (AUTO) 0.2 % (0-3); EOSINOPHILS % (AUTO) 5.3 % (0-5); MONOCYTES % (AUTO) 9.1 % (4-12); Mean Corpuscular Hemoglobin 27.7 pg (27.0-35.0); Mean Corpuscular Volume 82.8 fL (81-100); NEUTROPHILS % (AUTO) 63.1 % (40-74); Platelet Count 271 bil/L (150-400)
[2016-11-03] MEDS: Vancomycin Dose per Pharmacist XX SCH (08:30)
[2016-11-03] MEDS: cloNIDine 0.1 mg Tablet PO SCH ×3 (08:40→20:59)
[2016-11-03] MEDS: 0.9% Sodium Chloride 1,000 ML IV SCH ×2 (08:40→20:59)
--- NOTE | 2016-11-03 12:57 | NUR ---
Social Work: Continued discharge planning: Data:EMR reviewed. Pt is on day 14 of hospitalization for sepsis per H&P. In morning rounds, indicates pt is not medically stable for discharge. [facility] [place] has accepted pt and authorization from pt's insurance has been updated at [facility] to finish IV abx when medically stable. SW will continue to follow. Assessment: Pt who is independent at baseline, IV drug use. Plan: [facility] [place] pt.Pt's insurance has authorized placement, once medically stable. [place] [facility] to see pt. SW will continue to follow. KINGA Naranjo
--- NOTE | 2016-11-03 14:03 | PROG NOTE ---
[address] [address] PROGRESS NOTE PATIENT: LORI BALDWIN : 1990 MR#: [id number] ADMIT: 10/20/2016 JOB ID: [id number] DATE: 11/03/2016 REASON FOR FOLLOWUP: MRSA endocarditis with exudative right pleural effusion and very sustained fevers,, as well as perinephric abscess. INTERVAL HISTORY: Overnight, the patient reports his fevers seem to have ended. He has had no fevers or chills. He continues as always to be tired and lethargic and complains of not getting enough sleep, almost despite what hour of the day he is asked the question. No significant cough or pleuritic chest pain. No nausea, vomiting, or skin rash. PHYSICAL EXAMINATION: Reveals a gentleman who has been afebrile now for 24 hours. This is his longest period afebrile since admission some 25 days ago. Mental status is lethargic as usual, but easily arouses. Oral cavity without thrush or pharyngitis. His lungs are notable for rales and decreased breath sounds, especially at the right base as opposed to the left. Cardiac tones with a soft systolic murmur. No change. Abdomen soft and nontender. Does not have peripheral stigmata of endocarditis. LABORATORIES: Include a white blood count 4800, eosinophils now up to 5%. His creatinine is 0.55. LFTs have been normal. The patient has hep C genotype 1A. Viral load 36,000. Followup blood cultures have been negative. The pleural fluid that was obtained on the is culture negative at this point. 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 The overall characteristics of the fluid did not appear to be that of an empyema. The patient has finally defervesced after 25 full days of fever. I am cautiously optimistic at this time and see no reason to change antibiotics. At this point, I would not perform thoracentesis on the opposite side or head for a VATS procedure on his more involved right side given his absence of fever and clinical improvement. RECOMMENDATIONS: 1. I see no need for additional interventions today as we await and hopefully discover that his fevers are under control. 2. The tentative date on vancomycin is to go through December 05 which is still a long ways from where we are today.
--- NOTE | 2016-11-03 16:39 | PCM.PNMED ---
Subjective Date of Service Nov 03, 2016 Subjective Pulmonary Service Consultation Patient 26yom with MHx significant for polydrug use, IVDA presented on 2016 with septic emboli and cultured MRSA positive currently on a 6wks course of IV vancomycin. Pulmonary service was consulted for the evaluation of b/l lower lobe consolidation in the setting of consistent high fever. Thoracocentesis done on 10/30 showed parapneumonic, no empyemic however. A chest tube/VATS procedure was thus placed on hold pending patient conditions over the weekend. Today, patient denies any new complaints. No fever, chills, or night sweats. No pleuritic chest pain or exertional dyspnea. Patient reports walking to and from bathroom without assistance and O2 support. Exam Vital Signs Vital Sign - Last Date Time Temp Pulse Resp B/P Pulse Ox O2 Delivery O2 Flow Rate FiO2 11/03/16 13:22 36.8 55 18 109/60 96 Room Air Intake and Output 11/02/16 11/02/16 11/03/16 Cumulative From/Thru 15:00 23:00 07:00 10/20/16 00:16 - 11/03/16 06:47 Intake Total 3975 ml 2504 ml 68195 ml Output Total 1476 ml 1700 ml 27065 ml Balance 2499 ml 804 ml 25053 ml Intake Oral 1062 ml 800 ml 16634 ml IV Total 2913 ml 1704 ml 51733 ml Output Urine Total 1475 ml 1700 ml 33648 ml Emesis 1 ml 2 ml # Voids 16 # Bowel Movements 2 Exam Gen: Lying comfortably at 30degree head tilt HEENT: PERRLA, Anicteric sclerae, moist conjunctivae, and no lid lag. Neck: supple, no JVD Cardio: Regular rate and rhythm with no murmurs, rubs, or gallops appreciated Pulm: Normal respiratory effort with no use of accessory muscles. no crackles, wheezes, or rhonchi, diminished breath sound Right lower lobe, no back pain Abd: positive bowel tone. Soft, nontender, nondistended. Extremities: No clubbing, cyanosis, edema, or lymphadenopathy appreciated. Skin: Normal temperature, turgor, and texture; no rash, ulcers, or subcutaneous nodules appreciated. Neuro: Cranial nerves grossly intact. moving equally on all four limbs. Psyc: Normal mood and affect. AoX3 Lab and Diagnostics Result Diagram: 11/03/16 0515 11/03/1615 X-Rays, CTs and MRIs CT scan of the brain negative for intracranial process, CT scan of abdomen and pelvis showed septic emboli to kidneys bilaterally, CT angio of chest showed multiple septic emboli to lungs bilaterally, no over vegetations of heart valves noted on CT chest Repeat CT Chest/abd/pelvis IMPRESSION: 1. Mild bilateral pleural effusions with interval decrease on the right and interval development of the left. 2. Relatively unchanged appearance of cavitary foci within the areas of consolidation and effusion compared to prior exam. 3. No enhancing loculations identified within the pleural effusions. However, if concern for loculations persist, ultrasound is recommended for further evaluation 4. Continued interval improvement of left perinephric abscess. Dictated by: Rere Mina M.D. on 10/31/2016 at 19:51 12-lead ECG ECG Interpretation: Sinus tachycardia rate 114 Time: 01:12 Interpreted by: ED physician Cardiac Echo Impressions Echocardiogram Report Name: LORI BALDWIN Study Date: 10/20/2016 Height: 70 in Hospital Exam Location: [facility] Weight: 177 lb Gender: Male BSA: 2.0 m2 : 1990 Age: 26 yrs BP: 106/59 mmHg Reason For Study: Endocarditis History: IVDA, SMOKER Ordering Physician: Performed By: Sarika Fuller [facility] Interpretation Summary The left ventricle is normal in size, wall thickness, and systolic function without any focal wall motion abnormalities. The ejection fraction is estimated to be 60-65%. The right ventricle is normal in size and function. The left atrium is mildly dilated. Right atrial size is normal. There is no obvious valvular vegetation identified on this exam. Consider EFREN if there is a high degree of clinical suspicion for endocarditis and clinically appropriate. There is no significant valvular heart disease. The aortic root is normal size. Procedure: A two-dimensional transthoracic echocardiogram with color flow and Doppler was performed. The study quality was technically adequate. There is no prior echocardiogram noted for this patient. The patient was in normal sinus rhythm during the exam. Left Ventricle: The left ventricle is normal in size, wall thickness, and systolic function without any focal wall motion abnormalities. A false chord is noted (normal variant). The ejection fraction is estimated to be 60-65%. The transmitral spectral Doppler flow pattern is normal for age. Right Ventricle: The right ventricle is normal in size and function. Atria: The left atrium is mildly dilated. Right atrial size is normal. There is no Doppler evidence for an interatrial shunt. Mitral Valve: The mitral valve is normal in structure and function. There is trace mitral regurgitation. Aortic Valve: The aortic valve is normal in structure and function. No aortic regurgitation is present. Tricuspid Valve: The tricuspid valve is normal in structure and function. Pulmonary artery pressures cannot be estimated because of the lack of a measurable TR jet velocity. Pulmonic Valve: The pulmonic valve is normal in structure and function. There is no pulmonic valvular regurgitation. There is no obvious valvular vegetation identified on this exam. Consider EFREN if there is a high degree of clinical suspicion for endocarditis and clinically appropriate. There is no significant valvular heart disease. Great Vessels: The aortic root is normal size. The ascending aorta is normal in size. The IVC has a measurement of 20 mm. The patient could not perform sniff test. Pericardium/ Pleura There is no pericardial effusion. MMode/2D Measurements & Calculations LVIDd: 5.4 cm RA long axis LVOT diam LVIDs: 3.2 cm LA A2 area: 21.8 cm FS: 39.5 % LA A4 area: 23.1 cm RA area AoV Opening EPSS: 0.47 cm LA length (vol): 6.2 cm IVSd: 0.66 cm LA vol: 68.8 ml : 18.3 cm Ao root diam LVPWd: 0.71 cm LA vol index RA vol : 59.5 ml asc Aorta RA Diam: 3.2 cm IVC diam: 2.0 cm : 30.0 mm2 LV rodrigues. diameter/BSA LV sys. diameter/BSA RVD1 (basal) (cm/m^2): 2.7 (cm/m^2): 1.6 Doppler Measurements & Calculations Ao V2 max MV E max jorge MV E/A: 2.3 PA V2 max : 171.7 cm/sec : 117.0 cm/sec Med Peak E' Jorge : 99.6 cm/sec Ao max PG MV A max jorge PA mean PG : 11.8 mmHg : 50.8 cm/sec E/E' med: 8.9 Ao mean PG MV P1/2t: 66.3 msec Lat Peak E' Jogre PA Accel Time : 0.12 sec LVOT Max Jorge E/E' lat: 6.0 : 123.3 cm/sec E/e' average: 7.4 KAILYN(I,D): 3.2 cm Pulm A Revs Dur sev ratio MV A dur: 0.09 sec MV dec time MV P1/2t max jorge Ao V2 mean LV V1 max PG : 0.23 sec : 113.9 cm/sec Ao V2 VTI: 25.9 cm LV V1 VTI MVA(P1/2t): 3.3 cm2 : 20.9 cm KAILYN(V,D): 2.8 cm2 PA V2 mean KAILYN indexed to BSA Pulm A Revs Dur - MV A : 68.9 cm/sec (cm^2/m^2): 1.6 Dur: -0.01 msec Reading Physician:PM Assessment & Plan Patient 26yom with MHx significant for polydrug use, IVDA presented on 2016 with septic emboli and cultured MRSA positive currently on a 6wks course of IV vancomycin. CT-chest (10/28) and repeat (10/31) demonstrate consolidation of the lower bases R>L with evidence of cavitary foci s/p thoracocentesis. Since , fever trend down and afebrile within the past 24hrs. Breathing sound decreased R lower lobe, though without any pleuritic chest pain or leukocytosis , and overall, patient feels better. Problem 1. Methicillin-resistant Staphylococcus aureus bacteremia and clinical endocarditis. 2. Perinephric abscess--improving on imaging. 3. Exudative right pleural effusion--does not meet criteria for empyema. Consistent with a complex parapneumonic effusion. 4. History of intravenous drug use. PLAN 1. Hold off chest tube/VATs 2. Continue to monitor for infections or worsening of respiratory status. Repeat CT-chest with if symptoms worsen. VTE Prophylaxis: Sub-Q Heparin (Unfractionated) VTE Mechanical Devices: Intermittant Pneumatic CD Resuscitation Status: CPR: Attempt Resuscitation Attending Statement The patient was seen and examined together with Dr. Cornelius on 11/03/2016 and I agree with the history, exam and plan as outlined in the note above. Andrew Cornelius DO Nov 03, 2016 16:39 Flip Roger MD December 04, 2016 17:23
--- NOTE | 2016-11-03 21:07 | PCM.PNMED ---
Subjective Date of Service Nov 03, 2016 Subjective Patient states that he is feeling well and has no pain, fevers, chills, nausea, vomiting. He says he just does not like to go outside as he does not like people staring at him. He has a brother in his room seems to be picking on a bag of pretzels no other concerns today Exam Vital Signs Vital Sign - Last Date Time Temp Pulse Resp B/P Pulse Ox O2 Delivery O2 Flow Rate FiO2 11/03/16 00:52 37.4 59 18 126/68 96 Room Air Intake and Output 11/02/16 11/02/16 11/03/16 Cumulative From/Thru 15:00 23:00 07:00 10/20/16 00:16 - 11/03/16 05:28 Intake Total 3975 ml 1704 ml 50081 ml Output Total 1476 ml 04687 ml Balance 2499 ml 1704 ml 67914 ml Intake Oral 1062 ml 37542 ml IV Total 2913 ml 1704 ml 40109 ml Output Urine Total 1475 ml 53976 ml Emesis 1 ml 2 ml # Voids 16 # Bowel Movements 2 Exam Gen.: No acute distress HEENT: Normocephalic/atraumatic Heart: Negative for murmurs Lungs clear to auscultation no wheezes or crackles Abdomen flat, nontender, normal bowel sounds Extremities negative for swelling Psych: Negative for anxiety , resigned affect Neuro no focal deficits IVs and Medications IV Fluids None Medications Reviewed: Medications were reviewed in detail Lab and Diagnostics Result Diagram: 11/03/16 0515 11/01/16 0540 X-Rays, CTs and MRIs CT scan of the brain negative for intracranial process, CT scan of abdomen and pelvis showed septic emboli to kidneys bilaterally, CT angio of chest showed multiple septic emboli to lungs bilaterally, no over vegetations of heart valves noted on CT chest 12-lead ECG ECG Interpretation: Sinus tachycardia rate 114 Time: 01:12 Interpreted by: ED physician Cardiac Echo Impressions Echocardiogram Report Name: LORI BALDWIN Study Date: 10/20/2016 Height: 70 in Hospital Exam Location: [facility] Weight: 177 lb Gender: Male BSA: 2.0 m2 : 1990 Age: 26 yrs BP: 106/59 mmHg Reason For Study: Endocarditis History: IVDA, SMOKER Ordering Physician: [facility] Interpretation Summary The left ventricle is normal in size, wall thickness, and systolic function without any focal wall motion abnormalities. The ejection fraction is estimated to be 60-65%. The right ventricle is normal in size and function. The left atrium is mildly dilated. Right atrial size is normal. There is no obvious valvular vegetation identified on this exam. Consider EFREN if there is a high degree of clinical suspicion for endocarditis and clinically appropriate. There is no significant valvular heart disease. The aortic root is normal size. Procedure: A two-dimensional transthoracic echocardiogram with color flow and Doppler was performed. The study quality was technically adequate. There is no prior echocardiogram noted for this patient. The patient was in normal sinus rhythm during the exam. Left Ventricle: The left ventricle is normal in size, wall thickness, and systolic function without any focal wall motion abnormalities. A false chord is noted (normal variant). The ejection fraction is estimated to be 60-65%. The transmitral spectral Doppler flow pattern is normal for age. Right Ventricle: The right ventricle is normal in size and function. Atria: The left atrium is mildly dilated. Right atrial size is normal. There is no Doppler evidence for an interatrial shunt. Mitral Valve: The mitral valve is normal in structure and function. There is trace mitral regurgitation. Aortic Valve: The aortic valve is normal in structure and function. No aortic regurgitation is present. Tricuspid Valve: The tricuspid valve is normal in structure and function. Pulmonary artery pressures cannot be estimated because of the lack of a measurable TR jet velocity. Pulmonic Valve: The pulmonic valve is normal in structure and function. There is no pulmonic valvular regurgitation. There is no obvious valvular vegetation identified on this exam. Consider EFREN if there is a high degree of clinical suspicion for endocarditis and clinically appropriate. There is no significant valvular heart disease. Great Vessels: The aortic root is normal size. The ascending aorta is normal in size. The IVC has a measurement of 20 mm. The patient could not perform sniff test. Pericardium/ Pleura There is no pericardial effusion. MMode/2D Measurements & Calculations LVIDd: 5.4 cm RA long axis LVOT diam LVIDs: 3.2 cm LA A2 area: 21.8 cm FS: 39.5 % LA A4 area: 23.1 cm RA area AoV Opening EPSS: 0.47 cm LA length (vol): 6.2 cm IVSd: 0.66 cm LA vol: 68.8 ml : 18.3 cm Ao root diam LVPWd: 0.71 cm LA vol index RA vol : 59.5 ml asc Aorta RA Diam: 3.2 cm IVC diam: 2.0 cm : 30.0 mm2 LV rodrigues. diameter/BSA LV sys. diameter/BSA RVD1 (basal) (cm/m^2): 2.7 (cm/m^2): 1.6 Doppler Measurements & Calculations Ao V2 max MV E max jorge MV E/A: 2.3 PA V2 max : 171.7 cm/sec : 117.0 cm/sec Med Peak E' Jorge : 99.6 cm/sec Ao max PG MV A max jorge PA mean PG : 11.8 mmHg : 50.8 cm/sec E/E' med: 8.9 Ao mean PG MV P1/2t: 66.3 msec Lat Peak E' Jorge PA Accel Time : 0.12 sec LVOT Max Jorge E/E' lat: 6.0 : 123.3 cm/sec E/e' average: 7.4 KAILYN(I,D): 3.2 cm Pulm A Revs Dur sev ratio MV A dur: 0.09 sec MV dec time MV P1/2t max jorge Ao V2 mean LV V1 max PG : 0.23 sec : 113.9 cm/sec Ao V2 VTI: 25.9 cm LV V1 VTI MVA(P1/2t): 3.3 cm2 : 20.9 cm KAILYN(V,D): 2.8 cm2 PA V2 mean KAILYN indexed to BSA Pulm A Revs Dur - MV A : 68.9 cm/sec (cm^2/m^2): 1.6 Dur: -0.01 msec Reading Physician:PM Assessment & Plan 26 y.o. M with past medical history of IVDU heroin and methamphetamine, needle sharing, three previous OD on heroin, last heroine use 7-8 hours prior to ED admission, last meth use yesterday, admitted to ED for worsening chest and abdominal pain. He has had at least 4 different types of organisms growing in his blood cultures so far AFB smear is negative cultures blood cultures from 08/2016 are negative. He has a plan to go on IV vancomycin and Septra role in to [facility] once he is stable. There was a consideration for bath procedures due to findings on his thoracentesis procedure however pulmonology is holding off now as patient is clinically improving. # Acute MRSA bacteremia. present on admission - Patient has history of IVDU heroin and methamphetamine, multiple septic emboli noted on CT of lungs and kidneys, indicative of right and left sided heart valve involvement - appreciate ID consult. will f/u w/ recs - Continue with IV vancomycin and Ceftaroline per ID # Sepsis, acute. Present at the time of admission Patient also has septic pulmonary emboli and possibly pyelonephritis. - Likely source of infection is intravenous drug use - WBC 23, lactic acid 1.6 on admission - Abx as noted above # CT chest 10/28: "Bilateral consolidation in the lungs consistent with pneumonia with areas of cavitation suspicious for developing pulmonary abscesses in the right lower lobe and left lingula. Bilateral pleural effusions , moderate on the right and small the left." - appreciate pulmonology and surgery consults. will f/u w/ recs - s/p thoracentesis on 10/30/16 showing exudative right pleural effusion, likely complex parapneumonic effusion. - Cavitary left lung lesion--most likely septic emboli. -- Pulmonology is currently holding off on doing a VATS procedure as clinically patient is improving # Acute Urinary retention. - Possibly due to septic emboli to kidneys vs UTI vs STD/STI - Urine culture: mixed urogenital liliana - UA is negative. Will follow clinically. # IVDU heroin and methamphetamine - Prior overdoses x 3, - Clonazepam 0.5 PRN for signs of withdrawal - Patient currently on scheduled methadone and clonidine with IV Ativan and IV morphine when necessary pain - orchestrate a slow taper over the next week. # High risk behavior - IVDU, needle sharing, never screened for HIV, Hepatitis, STD/STI - HIV 1/2 screen ordered (negative) - Hepatitis panel (hep C antibody positive ) # Acute hyponatremia. not poa. ongoing but improved - f/u BMP Disposition: pending above issues VTE Prophylaxis: Sub-Q Heparin (Unfractionated) VTE Mechanical Devices: Intermittant Pneumatic CD Resuscitation Status: CPR: Attempt Resuscitation Nicky Oliveira DO Nov 03, 2016 05:50
[2016-11-04] VITALS (8 sets, daily range): BP systolic 107–117; BP diastolic 57–65; PULSE 52–64; RESP 16–18; O2SAT 94–97
[2016-11-04] MEDS: Sodium Chloride LOK Flush 10 mL Syringe IVFLUSH SCH ×3 (00:57→16:30)
[2016-11-04] MEDS: Vancomycin Inj 2,000 MG in 0.9% Sodium Chloride 500 ML IV SCH ×3 (00:57→17:48)
[2016-11-04] MEDS: 0.9% Sodium Chloride 1,000 ML IV SCH ×2 (05:49→21:30)
[2016-11-04 06:10] LABS: BASOPHILS % (AUTO) 0.2 % (0-3); EOSINOPHILS % (AUTO) 3.2 % (0-5); Mean Corpuscular Hemoglobin 27.1 pg (27.0-35.0); Mean Corpuscular Volume 83.2 fL (81-100); NEUTROPHILS % (AUTO) 60.4 % (40-74); Platelet Count 282 bil/L (150-400)
[2016-11-04] MEDS: Vancomycin Dose per Pharmacist XX SCH (08:13)
[2016-11-04] MEDS: cloNIDine 0.1 mg Tablet PO SCH ×2 (08:13→20:30)
--- NOTE | 2016-11-04 08:22 | PATH ---
SURGICAL PATHOLOGY Attending Physician:Cristina Dickey MD CASE STATUS: Signed Out PATIENT NAME: LORI BALDWIN PID: [id number] : 1990 DATE COLLECTED:10/30/2016 00:00 SPECIMEN: Pleural Fluid CLINICAL HISTORY: Pleural Fluid ICD-10 code not given FINAL DIAGNOSIS: Pleural Fluid Cytology Specimen (Cell Block, ThinPrep and Cytospin): Negative for malignancy. Cells present include benign mesothelial cells and lymphocytes. ICD10 J90 GROSS DESCRIPTION: Received fresh on 10/31/2016 is approximately 60 cc of clear yellow fluid. Prepared are one cell block, one ThinPrep and one Cytospin slides. Vo ICD-9 CODES: CPT CODES: 1: 16227, 13215, 81263 Electronically Signed Out Bud Pavon MD [facility] Pathology [facility] [address], [place] [address] Technical component performed at [facility], [address] [place] [address] Ave[address], [place], [address]
[2016-11-04] MEDS: Methadone 10 mg/mL Oral Concentrate PO SCH ×2 (09:42→17:48)
--- NOTE | 2016-11-04 10:26 | PCM.PNMED ---
Subjective Date of Service Nov 04, 2016 Subjective Pulmonary Service Consultation Follow-up Patient 26yom with MHx significant for polydrug use, IVDA presented on 2016 with septic emboli and cultured MRSA positive currently on a 6wks course of IV vancomycin. Pulmonary service was consulted for the evaluation of b/l lower lobe consolidation in the setting of consistent high fever. Thoracocentesis done on 10/30 showed parapneumonic, not empyemic though. Chest tube/VATs not currently consider. No new complaints today. Denies any fever, chills, night sweats, leg swellings , joint pain, abdominal pain, back pain, or pleuritic chest pain. No headaches. Denies unilateral weakness, tingling sensation. Exam Vital Signs Vital Sign - Last Date Time Temp Pulse Resp B/P Pulse Ox O2 Delivery O2 Flow Rate FiO2 11/04/16 10:14 36.9 61 18 111/65 96 Room Air Intake and Output 11/03/16 11/03/16 11/04/16 Cumulative From/Thru 15:00 23:00 07:00 10/20/16 00:16 - 11/04/16 06:29 Intake Total 2814 ml 1234 ml 33508 ml Output Total 1175 ml 71757 ml Balance 1639 ml 1234 ml 09559 ml Intake Oral 1156 ml 96487 ml IV Total 1658 ml 1234 ml 73409 ml Output Urine Total 1175 ml 58957 ml Emesis 0 ml 2 ml # Voids 16 # Bowel Movements 2 Exam Gen: Lying comfortably at 30degree head tilt HEENT: PERRLA, Anicteric sclerae, moist conjunctivae, and no lid lag. Neck: supple, no JVD Cardio: Regular rate and rhythm with no murmurs, rubs, or gallops appreciated Pulm: Normal respiratory effort with no use of accessory muscles. no crackles, wheezes, or rhonchi, diminished breath sound Right lower lobe, no back pain Abd: positive bowel tone. Soft, nontender, nondistended. Extremities: No clubbing, cyanosis, edema, or lymphadenopathy appreciated. no splinter hemorrhages Skin: Normal temperature, turgor, and texture; no rash, ulcers, or subcutaneous nodules appreciated. Neuro: Cranial nerves grossly intact. moving equally on all four limbs. Psyc: Normal mood and affect. AoX3 Lab and Diagnostics Result Diagram: 11/04/16 0500 11/04/16 0500 X-Rays, CTs and MRIs CT scan of the brain negative for intracranial process, CT scan of abdomen and pelvis showed septic emboli to kidneys bilaterally, CT angio of chest showed multiple septic emboli to lungs bilaterally, no over vegetations of heart valves noted on CT chest 12-lead ECG ECG Interpretation: Sinus tachycardia rate 114 Time: 01:12 Interpreted by: ED physician Cardiac Echo Impressions Echocardiogram Report Name: LORI BALDWIN Study Date: 10/20/2016 Height: 70 in Hospital Exam Location: [facility] Weight: 177 lb Gender: Male BSA: 2.0 m2 : 1990 Age: 26 yrs BP: 106/59 mmHg Reason For Study: Endocarditis History: IVDA, SMOKER Ordering Physician: Performed By: Sarika [facility]vall[facility] Interpretation Summary The left ventricle is normal in size, wall thickness, and systolic function without any focal wall motion abnormalities. The ejection fraction is estimated to be 60-65%. The right ventricle is normal in size and function. The left atrium is mildly dilated. Right atrial size is normal. There is no obvious valvular vegetation identified on this exam. Consider EFREN if there is a high degree of clinical suspicion for endocarditis and clinically appropriate. There is no significant valvular heart disease. The aortic root is normal size. Procedure: A two-dimensional transthoracic echocardiogram with color flow and Doppler was performed. The study quality was technically adequate. There is no prior echocardiogram noted for this patient. The patient was in normal sinus rhythm during the exam. Left Ventricle: The left ventricle is normal in size, wall thickness, and systolic function without any focal wall motion abnormalities. A false chord is noted (normal variant). The ejection fraction is estimated to be 60-65%. The transmitral spectral Doppler flow pattern is normal for age. Right Ventricle: The right ventricle is normal in size and function. Atria: The left atrium is mildly dilated. Right atrial size is normal. There is no Doppler evidence for an interatrial shunt. Mitral Valve: The mitral valve is normal in structure and function. There is trace mitral regurgitation. Aortic Valve: The aortic valve is normal in structure and function. No aortic regurgitation is present. Tricuspid Valve: The tricuspid valve is normal in structure and function. Pulmonary artery pressures cannot be estimated because of the lack of a measurable TR jet velocity. Pulmonic Valve: The pulmonic valve is normal in structure and function. There is no pulmonic valvular regurgitation. There is no obvious valvular vegetation identified on this exam. Consider EFREN if there is a high degree of clinical suspicion for endocarditis and clinically appropriate. There is no significant valvular heart disease. Great Vessels: The aortic root is normal size. The ascending aorta is normal in size. The IVC has a measurement of 20 mm. The patient could not perform sniff test. Pericardium/ Pleura There is no pericardial effusion. MMode/2D Measurements & Calculations LVIDd: 5.4 cm RA long axis LVOT diam LVIDs: 3.2 cm LA A2 area: 21.8 cm FS: 39.5 % LA A4 area: 23.1 cm RA area AoV Opening EPSS: 0.47 cm LA length (vol): 6.2 cm IVSd: 0.66 cm LA vol: 68.8 ml : 18.3 cm Ao root diam LVPWd: 0.71 cm LA vol index RA vol : 59.5 ml asc Aorta RA Diam: 3.2 cm IVC diam: 2.0 cm : 30.0 mm2 LV rodrigues. diameter/BSA LV sys. diameter/BSA RVD1 (basal) (cm/m^2): 2.7 (cm/m^2): 1.6 Doppler Measurements & Calculations Ao V2 max MV E max jorge MV E/A: 2.3 PA V2 max : 171.7 cm/sec : 117.0 cm/sec Med Peak E' Jorge : 99.6 cm/sec Ao max PG MV A max jorge PA mean PG : 11.8 mmHg : 50.8 cm/sec E/E' med: 8.9 Ao mean PG MV P1/2t: 66.3 msec Lat Peak E' Jorge PA Accel Time : 0.12 sec LVOT Max Jorge E/E' lat: 6.0 : 123.3 cm/sec E/e' average: 7.4 KAILYN(I,D): 3.2 cm Pulm A Revs Dur sev ratio MV A dur: 0.09 sec MV dec time MV P1/2t max jorge Ao V2 mean LV V1 max PG : 0.23 sec : 113.9 cm/sec Ao V2 VTI: 25.9 cm LV V1 VTI MVA(P1/2t): 3.3 cm2 : 20.9 cm KAILYN(V,D): 2.8 cm2 PA V2 mean KAILYN indexed to BSA Pulm A Revs Dur - MV A : 68.9 cm/sec (cm^2/m^2): 1.6 Dur: -0.01 msec Reading Physician:PM Assessment & Plan Patient 26yom with MHx significant for polydrug use, IVDA presented on 2016 with septic emboli and cultured MRSA positive currently on a 6wks course of IV vancomycin. CT-chest (10/28) and repeat (10/31) demonstrate consolidation of the lower bases R>L with evidence of cavitary foci s/p thoracocentesis. Since , fever trend down and afebrile within the past 24hrs. Breathing sound decreased R lower lobe, though without any pleuritic chest pain or leukocytosis , and overall, patient feels better. Patient afebrile 48hrs. Problem 1. Methicillin-resistant Staphylococcus aureus bacteremia and clinical endocarditis. 2. Perinephric abscess--improving on imaging. 3. Exudative right pleural effusion--does not meet criteria for empyema. Consistent with a complex parapneumonic effusion. 4. History of intravenous drug use. PLAN 1. Hold off chest tube/VATs 2. Continue to monitor for infections or worsening of respiratory status. Repeat CT-chest with if symptoms worsen. 3. Encourage ambulation to help open airway and increase protein intake for strength. VTE Prophylaxis: Sub-Q Heparin (Unfractionated) VTE Mechanical Devices: Intermittant Pneumatic CD Resuscitation Status: CPR: Attempt Resuscitation Attending Statement The patient was seen and examined together with Dr. Cornelius on 11/04/2016 and I agree with the history, exam and plan as outlined in the note above. Andrew Cornelius DO Nov 04, 2016 10:26 Flip Roger MD December 04, 2016 17:25 # High risk behavior - IVDU, needle sharing, never screened for HIV, Hepatitis, STD/STI - HIV 1/2 screen ordered (negative) - Hepatitis panel (hep C antibody positive ) # Acute hyponatremia. not poa. ongoing but improved - f/u BMP Disposition: pending above issues VTE Prophylaxis: Sub-Q Heparin (Unfractionated) VTE Mechanical Devices: Intermittant Pneumatic CD Resuscitation Status: CPR: Attempt Resuscitation Andrew Cornelius DO Nov 04, 2016 10:26
--- NOTE | 2016-11-04 11:10 | PROG NOTE ---
[address] [address] PROGRESS NOTE PATIENT: LORI BALDWIN : 1990 MR#: [id number] ADMIT: 10/20/2016 JOB ID: [id number] DATE: 11/04/2016 REASON FOR FOLLOWUP: MRSA endocarditis with very prolonged fevers. INTERVAL HISTORY: The patient reports he is once again feeling fairly well today except for persistent fatigue. Today, he denies any fevers, chills, or sweats. He has no significant headache. No cough, shortness of breath. No chest pain, either pleuritic or pericardial. He has had a bit of nausea. No vomiting. No diarrhea. No dysuria. PHYSICAL EXAMINATION: Reveals an afebrile gentleman. Temperature 36.9, pulse 63, respiratory rate 18, blood pressure 111/65. He is saturating well on room air. In no acute distress. The patient's mental status is clear today. Oral cavity without thrush or pharyngitis. Lungs increasingly clear. A few crackles at both bases, perhaps more on the right. Cardiac tones with minimal 1/6 systolic murmur as previously. Abdomen is benign. No peripheral stigmata of endocarditis. LABORATORIES: New labs include white count 5400, with 14% monocytes. Creatinine 0.58. 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 Follow up blood cultures from the are negative. Pleural fluid cultures from the remain negative. IMAGING: No new imaging since the CT of the . IMPRESSION: This is a complicated case of a young gentleman with methicillin-resistant Staphylococcus aureus (MRSA) endocarditis due to IV drug use with associated perinephric abscess and complex exudative pleural effusion which is not an empyema apparently. After 25 days of fever, he has now been afebrile two days, and it would appear we finally turned the corner without need for decortication or any other imaging study. RECOMMENDATIONS: 1. Continue with vancomycin, with our plan to go through December 05. 2. ID will continue to see this patient two or three times a week. 3. As long as he does not have fevers, I think we can start to check labs twice a week, say Thursday and , with CBC, CMP and vancomycin trough as the only indicated labs in this patient who hopefully will become simpler and simpler if he can stay afebrile.
--- NOTE | 2016-11-04 16:16 | NUR ---
Shift: VSS, tele SR 60s, RA O2 sats 94-96%. Voiding independently, tolerating PO intake well, up ad gela in room, no gait instability noted. Reports pain as being 7/10, Feldt score is 1. Plan is to continue IV antibiotics, care ongoing.
--- NOTE | 2016-11-04 21:58 | PCM.PNMED ---
Subjective Date of Service Nov 04, 2016 Subjective Pateint is seen and examined. Denies fevers, chills, abdominal pain, back pain. Denies nausea, vomiting, and diarrhea. Exam Vital Signs Vital Sign - Last Date Time Temp Pulse Resp B/P Pulse Ox O2 Delivery O2 Flow Rate FiO2 11/04/16 01:03 37.3 61 18 108/64 97 Room Air Intake and Output 11/03/16 11/03/16 11/04/16 Cumulative From/Thru 15:00 23:00 07:00 10/20/16 00:16 - 11/04/16 02:47 Intake Total 2814 ml 19780 ml Output Total 1175 ml 23210 ml Balance 1639 ml 28797 ml Intake Oral 1156 ml 44716 ml IV Total 1658 ml 60960 ml Output Urine Total 1175 ml 80880 ml Emesis 0 ml 2 ml # Voids 16 # Bowel Movements 2 Exam GEneral : No acute distress Eyes: [place] conjunctivae. No ptosis Neck: No masses, trachea midline, no thyromegaly Lungs: CTA with normal respiratory effort CV: RRR, no murmurs/rubs/gallops, GI: Soft, non-tender with no hepatosplenomegaly MSK: no digital cyanosis Skin: Warm and dry. Psych: A&O X3, with approprate affect IVs and Medications IV Fluids None Medications Reviewed: Medications were reviewed in detail Lab and Diagnostics Result Diagram: 11/03/1615 11/03/16514 X-Rays, CTs and MRIs CT scan of the brain negative for intracranial process, CT scan of abdomen and pelvis showed septic emboli to kidneys bilaterally, CT angio of chest showed multiple septic emboli to lungs bilaterally, no over vegetations of heart valves noted on CT chest 12-lead ECG ECG Interpretation: Sinus tachycardia rate 114 Time: 01:12 Interpreted by: ED physician Cardiac Echo Impressions Echocardiogram Report Name: LORI BALDWIN Study Date: 10/20/2016 Height: 70 in Hospital Exam Location: [facility] Weight: 177 lb Gender: Male BSA: 2.0 m2 : 1990 Age: 26 yrs BP: 106/59 mmHg Reason For Study: Endocarditis History: IVDA, SMOKER Ordering Physician: Performed By: Sarika Fuller HOSPITALIST [facility] Interpretation Summary The left ventricle is normal in size, wall thickness, and systolic function without any focal wall motion abnormalities. The ejection fraction is estimated to be 60-65%. The right ventricle is normal in size and function. The left atrium is mildly dilated. Right atrial size is normal. There is no obvious valvular vegetation identified on this exam. Consider EFREN if there is a high degree of clinical suspicion for endocarditis and clinically appropriate. There is no significant valvular heart disease. The aortic root is normal size. Procedure: A two-dimensional transthoracic echocardiogram with color flow and Doppler was performed. The study quality was technically adequate. There is no prior echocardiogram noted for this patient. The patient was in normal sinus rhythm during the exam. Left Ventricle: The left ventricle is normal in size, wall thickness, and systolic function without any focal wall motion abnormalities. A false chord is noted (normal variant). The ejection fraction is estimated to be 60-65%. The transmitral spectral Doppler flow pattern is normal for age. Right Ventricle: The right ventricle is normal in size and function. Atria: The left atrium is mildly dilated. Right atrial size is normal. There is no Doppler evidence for an interatrial shunt. Mitral Valve: The mitral valve is normal in structure and function. There is trace mitral regurgitation. Aortic Valve: The aortic valve is normal in structure and function. No aortic regurgitation is present. Tricuspid Valve: The tricuspid valve is normal in structure and function. Pulmonary artery pressures cannot be estimated because of the lack of a measurable TR jet velocity. Pulmonic Valve: The pulmonic valve is normal in structure and function. There is no pulmonic valvular regurgitation. There is no obvious valvular vegetation identified on this exam. Consider EFREN if there is a high degree of clinical suspicion for endocarditis and clinically appropriate. There is no significant valvular heart disease. Great Vessels: The aortic root is normal size. The ascending aorta is normal in size. The IVC has a measurement of 20 mm. The patient could not perform sniff test. Pericardium/ Pleura There is no pericardial effusion. MMode/2D Measurements & Calculations LVIDd: 5.4 cm RA long axis LVOT diam LVIDs: 3.2 cm LA A2 area: 21.8 cm FS: 39.5 % LA A4 area: 23.1 cm RA area AoV Opening EPSS: 0.47 cm LA length (vol): 6.2 cm IVSd: 0.66 cm LA vol: 68.8 ml : 18.3 cm Ao root diam LVPWd: 0.71 cm LA vol index RA vol : 59.5 ml asc Aorta RA Diam: 3.2 cm IVC diam: 2.0 cm : 30.0 mm2 LV rodrigues. diameter/BSA LV sys. diameter/BSA RVD1 (basal) (cm/m^2): 2.7 (cm/m^2): 1.6 Doppler Measurements & Calculations Ao V2 max MV E max jorge MV E/A: 2.3 PA V2 max : 171.7 cm/sec : 117.0 cm/sec Med Peak E' Jorge : 99.6 cm/sec Ao max PG MV A max jorge PA mean PG : 11.8 mmHg : 50.8 cm/sec E/E' med: 8.9 Ao mean PG MV P1/2t: 66.3 msec Lat Peak E' Jorge PA Accel Time : 0.12 sec LVOT Max Jorge E/E' lat: 6.0 : 123.3 cm/sec E/e' average: 7.4 KAILYN(I,D): 3.2 cm Pulm A Revs Dur sev ratio MV A dur: 0.09 sec MV dec time MV P1/2t max jorge Ao V2 mean LV V1 max PG : 0.23 sec : 113.9 cm/sec Ao V2 VTI: 25.9 cm LV V1 VTI MVA(P1/2t): 3.3 cm2 : 20.9 cm KAILYN(V,D): 2.8 cm2 PA V2 mean KAILYN indexed to BSA Pulm A Revs Dur - MV A : 68.9 cm/sec (cm^2/m^2): 1.6 Dur: -0.01 msec Reading Physician:PM Assessment & Plan 26 y.o. M with past medical history of IVDU heroin and methamphetamine, needle sharing, three previous OD on heroin, last heroine use 7-8 hours prior to ED admission, last meth use yesterday, admitted to ED for worsening chest and abdominal pain. He has had at least 4 different types of organisms growing in his blood cultures so far AFB smear is negative cultures blood cultures from 08/2016 are negative. He has a plan to go on IV vancomycin and Septra role in to [facility] once he is stable. There was a consideration for bath procedures due to findings on his thoracentesis procedure however pulmonology is holding off now as patient is clinically improving. # Acute MRSA bacteremia. present on admission - Patient has history of IVDU heroin and methamphetamine, multiple septic emboli noted on CT of lungs and kidneys, indicative of right and left sided heart valve involvement - appreciate ID consult. will f/u w/ recs - Continue with IV vancomycin and Ceftaroline per ID - We will consider discharging him tomorrow if ID are not planning on any further interventions # Sepsis, acute. Present at the time of admission Patient also has septic pulmonary emboli and possibly pyelonephritis. - Likely source of infection is intravenous drug use - WBC 23, lactic acid 1.6 on admission - Abx as noted above # CT chest 10/28: "Bilateral consolidation in the lungs consistent with pneumonia with areas of cavitation suspicious for developing pulmonary abscesses in the right lower lobe and left lingula. Bilateral pleural effusions , moderate on the right and small the left." - appreciate pulmonology and surgery consults. will f/u w/ recs - s/p thoracentesis on 10/30/16 showing exudative right pleural effusion, likely complex parapneumonic effusion. - Cavitary left lung lesion--most likely septic emboli. -- Pulmonology is currently holding off on doing a VATS procedure as clinically patient is improving # Acute Urinary retention. - Possibly due to septic emboli to kidneys vs UTI vs STD/STI - Urine culture: mixed urogenital liliana - UA is negative. Will follow clinically. -- Patient says he has no issues now # IVDU heroin and methamphetamine - Prior overdoses x 3, - Clonazepam 0.5 PRN for signs of withdrawal - Patient currently on scheduled methadone and clonidine with IV Ativan and IV morphine when necessary pain - Discontinued Lorazepam, reduced Methadone to 7 mg Q8H # High risk behavior - IVDU, needle sharing, never screened for HIV, Hepatitis, STD/STI - HIV 1/2 screen ordered (negative) - Hepatitis panel (hep C antibody positive ) # Acute hyponatremia. not poa. ongoing but improved on 33 today - f/u BMP Disposition: Likely discharge in 1-2 days VTE Prophylaxis: Sub-Q Heparin (Unfractionated) VTE Mechanical Devices: Intermittant Pneumatic CD Resuscitation Status: CPR: Attempt Resuscitation Nicky Oliveira DO Nov 04, 2016 05:49
[2016-11-05] VITALS (7 sets, daily range): BP systolic 108–114; BP diastolic 60–65; PULSE 58–63; RESP 14–20; O2SAT 96–98
[2016-11-05] MEDS: Sodium Chloride LOK Flush 10 mL Syringe IVFLUSH SCH ×3 (00:30→17:05)
[2016-11-05] MEDS: Methadone 10 mg/mL Oral Concentrate PO SCH ×3 (00:37→17:05)
[2016-11-05] MEDS: Vancomycin Inj 2,000 MG in 0.9% Sodium Chloride 500 ML IV SCH ×3 (01:54→17:06)
[2016-11-05] MEDS: 0.9% Sodium Chloride 1,000 ML IV SCH ×2 (07:34→14:32)
[2016-11-05] MEDS: cloNIDine 0.1 mg Tablet PO SCH ×2 (09:16→20:48)
[2016-11-05] MEDS: Vancomycin Dose per Pharmacist XX SCH (09:17)
--- NOTE | 2016-11-05 14:38 | NUR ---
Called and left message for [place] [facility] [place] [phone], she is coordinating in place of Jenny this week. Clinicals orders can be faxed to [phone] RN to RN called to [phone] Waiting to have Winter call back and confirm admit for tomorrow. Updated [employer]
--- NOTE | 2016-11-05 15:01 | NUR ---
Laine LUCIANO saw pt and pt has refused services at this time. SW will continue to follow. KINGA Naranjo
--- NOTE | 2016-11-05 15:02 | NUR ---
Social Work: readiness for discharge: Data:EMR reviewed. Pt is on day 16 of hospitalization for sepsis per H&P. In morning rounds, indicates pt is not medically stable for discharge anticipate maybe tomorrow. [facility] [place] and authorization from pt's insurance has been updated at [facility] to finish IV abx when medically stable. SW will continue to follow. Assessment: Pt who is independent at baseline, IV drug use. Plan: [facility].Pt's insurance has authorized placement, once medically stable. SW will continue to follow. KINGA Naranjo
--- NOTE | 2016-11-05 15:23 | NUR ---
NUTRITION FOLLOW-UP: ASSESS: 26 YO male admitted for abdominal and back pain with subacute bacterial endocarditis secondary to IV drug use. Pt continues on IV antibiotics and [place] [facility] [place]. Pt PO intake had decreased for a couple of days since the last assessment, but it appears po intake is improve over the past 24 hours. PMHx: IV drug use (heroine and methamphetamine) LABS: Reviewed. Na 133, Cr .58, Ca 8.2. MEDS: Reviewed. GI: BM x 1 (11/04) CURRENT WT: 79.1 kg Admit wt: 80.4 kg. DIET: General. PO bites-100%. EST. NEEDS: 2942-7668 kcals (25-30 kcals/kg BW), 95-120 g protein (1.2-1.5 g/kg BW) NUTRITION DIAGNOSIS: 1.) No nutritional diagnosis at this time. NUTRITION INTERVENTION: 1.) No nutritional intervention at this time. MONITOR / EVAL: PO intake, labs, nutritional status. Follow per low nutritional risk guidelines.
--- NOTE | 2016-11-05 21:31 | PCM.PNMED ---
Subjective Date of Service Nov 05, 2016 Subjective Patient is seen and examined. He is in his usual mellow mood. Subdued expression. He states that he understands he can be anything he wants to be he can put his mind to it. States he is willing to work on his problems. Denies fevers, chills, nausea, vomiting, poor appetite. Denies shortness of breath, pain Exam Vital Signs Vital Sign - Last Date Time Temp Pulse Resp B/P Pulse Ox O2 Delivery O2 Flow Rate FiO2 11/05/16 20:45 37.1 61 14 110/62 96 Room Air Intake and Output 11/04/16 11/04/16 11/05/16 Cumulative From/Thru 15:00 23:00 07:00 10/20/16 00:16 - 11/05/16 06:10 Intake Total 220 ml 1889 ml 1700 ml 06674 ml Output Total 1350 ml 1700 ml 1350 ml 94757 ml Balance -1130 ml 189 ml 350 ml 62421 ml Intake Oral 220 ml 560 ml 400 ml 60483 ml IV Total 1329 ml 1300 ml 16632 ml Output Urine Total 1350 ml 1700 ml 1350 ml 19402 ml Emesis 2 ml # Voids 16 # Bowel Movements 1 3 Exam Gen.: No acute distress HEENT normocephalic, atraumatic Heart: Regular rate and rhythm no S3-S4 murmurs Lungs clear to auscultation no crackles or wheezes Abdomen flat, nontender Extremities: Nontender negative for swelling Psych: Negative for anxiety affect resigned Neuro: No focal deficits IVs and Medications IV Fluids None Medications Reviewed: Medications were reviewed in detail Lab and Diagnostics Result Diagram: 11/04/16 0500 11/04/16 0500 X-Rays, CTs and MRIs CT scan of the brain negative for intracranial process, CT scan of abdomen and pelvis showed septic emboli to kidneys bilaterally, CT angio of chest showed multiple septic emboli to lungs bilaterally, no over vegetations of heart valves noted on CT chest 12-lead ECG ECG Interpretation: Sinus tachycardia rate 114 Time: 01:12 Interpreted by: ED physician Cardiac Echo Impressions Echocardiogram Report Name: LORI BALDWIN Study Date: 10/20/2016 Height: 70 in Hospital Exam Location: [facility] Weight: 177 lb Gender: Male BSA: 2.0 m2 : 1990 Age: 26 yrs BP: 106/59 mmHg Reason For Study: Endocarditis History: IVDA, SMOKER Ordering Physician: [facility] Interpretation Summary The left ventricle is normal in size, wall thickness, and systolic function without any focal wall motion abnormalities. The ejection fraction is estimated to be 60-65%. The right ventricle is normal in size and function. The left atrium is mildly dilated. Right atrial size is normal. There is no obvious valvular vegetation identified on this exam. Consider EFREN if there is a high degree of clinical suspicion for endocarditis and clinically appropriate. There is no significant valvular heart disease. The aortic root is normal size. Procedure: A two-dimensional transthoracic echocardiogram with color flow and Doppler was performed. The study quality was technically adequate. There is no prior echocardiogram noted for this patient. The patient was in normal sinus rhythm during the exam. Left Ventricle: The left ventricle is normal in size, wall thickness, and systolic function without any focal wall motion abnormalities. A false chord is noted (normal variant). The ejection fraction is estimated to be 60-65%. The transmitral spectral Doppler flow pattern is normal for age. Right Ventricle: The right ventricle is normal in size and function. Atria: The left atrium is mildly dilated. Right atrial size is normal. There is no Doppler evidence for an interatrial shunt. Mitral Valve: The mitral valve is normal in structure and function. There is trace mitral regurgitation. Aortic Valve: The aortic valve is normal in structure and function. No aortic regurgitation is present. Tricuspid Valve: The tricuspid valve is normal in structure and function. Pulmonary artery pressures cannot be estimated because of the lack of a measurable TR jet velocity. Pulmonic Valve: The pulmonic valve is normal in structure and function. There is no pulmonic valvular regurgitation. There is no obvious valvular vegetation identified on this exam. Consider EFREN if there is a high degree of clinical suspicion for endocarditis and clinically appropriate. There is no significant valvular heart disease. Great Vessels: The aortic root is normal size. The ascending aorta is normal in size. The IVC has a measurement of 20 mm. The patient could not perform sniff test. Pericardium/ Pleura There is no pericardial effusion. MMode/2D Measurements & Calculations LVIDd: 5.4 cm RA long axis LVOT diam LVIDs: 3.2 cm LA A2 area: 21.8 cm FS: 39.5 % LA A4 area: 23.1 cm RA area AoV Opening EPSS: 0.47 cm LA length (vol): 6.2 cm IVSd: 0.66 cm LA vol: 68.8 ml : 18.3 cm Ao root diam LVPWd: 0.71 cm LA vol index RA vol : 59.5 ml asc Aorta RA Diam: 3.2 cm IVC diam: 2.0 cm : 30.0 mm2 LV rodrigues. diameter/BSA LV sys. diameter/BSA RVD1 (basal) (cm/m^2): 2.7 (cm/m^2): 1.6 Doppler Measurements & Calculations Ao V2 max MV E max jorge MV E/A: 2.3 PA V2 max : 171.7 cm/sec : 117.0 cm/sec Med Peak E' Jorge : 99.6 cm/sec Ao max PG MV A max jorge PA mean PG : 11.8 mmHg : 50.8 cm/sec E/E' med: 8.9 Ao mean PG MV P1/2t: 66.3 msec Lat Peak E' Jorge PA Accel Time : 0.12 sec LVOT Max Jorge E/E' lat: 6.0 : 123.3 cm/sec E/e' average: 7.4 KAILYN(I,D): 3.2 cm Pulm A Revs Dur sev ratio MV A dur: 0.09 sec MV dec time MV P1/2t max jorge Ao V2 mean LV V1 max PG : 0.23 sec : 113.9 cm/sec Ao V2 VTI: 25.9 cm LV V1 VTI MVA(P1/2t): 3.3 cm2 : 20.9 cm KAILYN(V,D): 2.8 cm2 PA V2 mean KAILYN indexed to BSA Pulm A Revs Dur - MV A : 68.9 cm/sec (cm^2/m^2): 1.6 Dur: -0.01 msec Reading Physician:PM Assessment & Plan 26 y.o. M with past medical history of IVDU heroin and methamphetamine, needle sharing, three previous OD on heroin, last heroine use 7-8 hours prior to ED admission, last meth use yesterday, admitted to ED for worsening chest and abdominal pain. He has had at least 4 different types of organisms growing in his blood cultures so far AFB smear is negative cultures blood cultures from 08/2016 are negative. He has a plan to go on IV vancomycin and Septra role in to [facility] once he is stable. There was a consideration for bath procedures due to findings on his thoracentesis procedure however pulmonology is holding off now as patient is clinically improving. # Acute MRSA bacteremia. present on admission - Patient has history of IVDU heroin and methamphetamine, multiple septic emboli noted on CT of lungs and kidneys, indicative of right and left sided heart valve involvement - appreciate ID consult. will f/u w/ recs - Continue with IV vancomycin and Ceftaroline per ID -As pulmonology is not planning any further interventions and ID improves we will discharge patient to [facility] tomorrow # Sepsis, acute. Present at the time of admission Patient also has septic pulmonary emboli and possibly pyelonephritis. - Likely source of infection is intravenous drug use - WBC 23, lactic acid 1.6 on admission - Abx as noted above -- White count has been stable # CT chest 10/28: "Bilateral consolidation in the lungs consistent with pneumonia with areas of cavitation suspicious for developing pulmonary abscesses in the right lower lobe and left lingula. Bilateral pleural effusions , moderate on the right and small the left." - appreciate pulmonology and surgery consults. will f/u w/ recs - s/p thoracentesis on 10/30/16 showing exudative right pleural effusion, likely complex parapneumonic effusion. - Cavitary left lung lesion--most likely septic emboli. -- Pulmonology is currently holding off on doing a VATS procedure as clinically patient is improving # Acute Urinary retention. - Possibly due to septic emboli to kidneys vs UTI vs STD/STI - Urine culture: mixed urogenital liliana - UA is negative. Will follow clinically. -- Patient says he has no issues now # IVDU heroin and methamphetamine - Prior overdoses x 3, - Clonazepam 0.5 PRN for signs of withdrawal - Patient currently on scheduled methadone and clonidine with IV Ativan and IV morphine when necessary pain - Discontinued Lorazepam, will reduce Methadone to 5 mg twice a day tomorrow # High risk behavior - IVDU, needle sharing, never screened for HIV, Hepatitis, STD/STI - HIV 1/2 screen ordered (negative) - Hepatitis panel (hep C antibody positive ) # Acute hyponatremia. not poa. ongoing but improved on 33 today - f/u BMP Disposition: Likely discharge tomorrow to [facility] for completion of antibiotics Pain Evaluation: Adequate Pain Control VTE Prophylaxis: Sub-Q Heparin (Unfractionated) VTE Mechanical Devices: Intermittant Pneumatic CD Resuscitation Status: CPR: Attempt Resuscitation Nicky Oliveira DO Nov 05, 2016 21:31
[2016-11-06 00:57] VITALS: PULSE 52
[2016-11-06] MEDS: Vancomycin Inj 2,000 MG in 0.9% Sodium Chloride 500 ML IV SCH ×2 (00:59→08:35)
[2016-11-06] MEDS: Sodium Chloride LOK Flush 10 mL Syringe IVFLUSH SCH ×2 (00:59→08:34)
[2016-11-06] MEDS: Methadone 10 mg/mL Oral Concentrate PO SCH (00:59)
[2016-11-06 01:04] VITALS: BP 105/57; PULSE 59; RESP 16; O2SAT 96
[2016-11-06 05:33] VITALS: BP 109/63; PULSE 57; RESP 16; O2SAT 96
[2016-11-06 06:16] LABS: Mean Corpuscular Hemoglobin 27.2 pg (27.0-35.0)
--- NOTE | 2016-11-06 06:40 | NUR ---
Activity/Pain Pt up independent in room. Pt stating pain 6-7/10 to back this shift, pt stating is tolerable. Medicating pt with 7mg PO scheduled methadone. Call light within reach, frequent rounding.
[2016-11-06 08:00] VITALS: PULSE 57
[2016-11-06] MEDS ORDERED: Vancomycin Serum Trough XX ONE (08:30)
[2016-11-06] MEDS: Vancomycin Dose per Pharmacist XX SCH (08:34)
[2016-11-06] MEDS: cloNIDine 0.1 mg Tablet PO SCH (08:34)
[2016-11-06] MEDS: 0.9% Sodium Chloride 1,000 ML IV SCH (08:35)
--- NOTE | 2016-11-06 08:55 | NUR ---
Spoke with Winter at [facility], [phone] they have beds today. faxed updated notes and labs, [phone]. LVM for PHOTO EQUIPMENT TECHNICIAN to speak with at rounds to confirm dc. Advised Winter I would call her back at 10:30a Addendum: 11/06/16 at 1023 by FAUZIA GONZALEZ Talked to Winter - advised pt is on Methadone, she indicated that is not an issue. Advised PHOTO EQUIPMENT TECHNICIAN who will confirm with pt is appropriate for dc. Addendum: 11/06/16 at 1228 by FAUZIA GONZALEZ Received TC from [facility], they are able to accept pt today. She requested pt arrive after 4pm. Advised PHOTO EQUIPMENT TECHNICIAN. Faxed [facility] transportation form requesting 4pm picking machine operator. Addendum: 11/06/16 at 1452 by FAUZIA DE LA O [facility] confirmed at 4pm p/u, pt to meet taxi cab driver in the lobby. Advised PHOTO EQUIPMENT TECHNICIAN, packet ready orders faxed to Winter at [facility].
[2016-11-06 09:58] VITALS: BP 101/59; PULSE 54; RESP 18; O2SAT 97
[2016-11-06] MEDS ORDERED: Methadone 10 mg/mL Oral Concentrate PO SCH (12:30)
--- NOTE | 2016-11-06 12:36 | PCM.DIMED ---
Discharge Instructions Date of Service Nov 06, 2016 Dates of Hospitalization Oct 20, 2016 at 04:27 Discharge Diagnosis Discharge Diagnosis Sepsis secondary to bacteremia due to MRSA, IVDU, Urine Retensioon, Hep C, High risk behaviors Diet No restrictions Activity No restrictions Call your provider Fever or Chills, Shortness of breath, Bleeding, Chest pain, Vomitting, Excessive diarrhea, Weakness (unilateral), Other Patient Instructions Please complete your abx thr December 05, 2016. You were counselled on high risk behaviors which caused the illness and avoiding them in the future. Follow-up plan Please note that patient was on a Methadone taper in this hospital. He was on methadone 10 mg TID which was reduced to 7 mg TID and then to 5 mg BID. Patient is currently on 5 mg BID Methadone for drug withdrawl. Dr. Dejesus at the receiving hospital agreed to take on this taper upon patient's admission there. We recommend that patient be given the current dose for 4 days, then Methadone 2.5 mg BID for 7 days, Methadone 2.5 mg QD for a week then reassess before stopping. Please draw Vancomycin troph Lab on 11/08/16. Stop date for vanomycin is 12/05/16 Nicky Oliveira DO Nov 06, 2016 12:24
[2016-11-06] MEDS ORDERED: KLO5T PO (13:51)
[2016-11-06] MEDS ORDERED: POLY17PO6 PO (13:51)
[2016-11-06] MEDS ORDERED: Acetaminophen PO (13:51)
[2016-11-06] MEDS ORDERED: Al Hydrox/Mg Hydrox/Simeth PO (13:51)
[2016-11-06] MEDS ORDERED: VANC1FRO IV (13:51)
[2016-11-06] MEDS ORDERED: CLON0.1T14 PO (13:51)
[2016-11-06] MEDS ORDERED: SENN-133 PO (13:51)
[2016-11-06] MEDS ORDERED: OXYC1TAB24 PO (13:51)
--- NOTE | 2016-11-06 13:56 | PROG NOTE ---
[address] [address] PROGRESS NOTE PATIENT: LORI BALDWIN : 1990 MR#: [id number] ADMIT: 10/20/2016 JOB ID: [id number] DATE: 11/06/2016 INFECTIOUS DISEASE FOLLOW UP NOTE: REASON FOR FOLLOWUP: MRSA endocarditis. INTERVAL HISTORY: Overnight, the patient says he has been feeling great. No fevers. No chills. No sweats. He no longer has any cough, pleuritic chest pain or shortness of breath. No nausea, vomiting, diarrhea. PHYSICAL EXAMINATION: Reveals an afebrile gentleman, temperature 37.2, blood pressure 101/59, pulse in the 50s, respiratory rate in the teens. He is in no acute distress. Mental status normal. Oral cavity negative. Lungs quite clear. No cardiac tones without significant murmur at all. Regular rate and rhythm. Abdomen: Benign. No skin rash. LABORATORIES: Include a white count of 5700, creatinine 0.57. Vanco trough perfect at 19. Follow up blood cultures have been negative since the , which is essentially our first day of negative blood cultures and starts our six weeks of therapy. Note that it took three or four days for his blood cultures to turn negative Micro studies: None new. IMPRESSION: This patient has a MRSA endocarditis with extensive pulmonary and renal infection. After almost 25 full days of fever, he has now been afebrile for four days and finally has turned the corner and really looks good. At this point, he needs to continue with supervised therapy given the high risk of manipulation of the line and drug use through the line if he were to be discharged. RECOMMENDATIONS: 1. Will continue with vanco through December 05. 2. About twice a week, he should have a CBC, CMP and vanco troughs keeping the trough 15-20. 3. I understand the patient may be transferred to [facility], sort of a step down situation and I think that is completely reasonable as long as the patient receives his vanco until December 05. Please call me if there are any questions.
[2016-11-06] MEDS ORDERED: VANC1PLA10 IV (14:09)
--- NOTE | 2016-11-06 14:17 | PCM.DC.MED ---
Discharge Summary Date of Service Nov 06, 2016 Dates of Hospitalization Date of Hospital Admission Oct 20, 2016 at 04:27 Date of Discharge: Nov 06, 2016 Providers: Admitting Physician: Luna Ramirez DO Primary Care Physician: Nopbenitez Attending Physician: Luna Ramirez DO Diagnosis at Time of Discharge Diagnosis at Time of Discharge Sepsis secondary to bacteremia due to MRSA, IVDU, Urine Retensioon, Hep C, High risk behaviors Procedures XRay, CTs & MRIs [facility] [place] [address] Patient Name: LORI PETERSEN MR#: [id number] Location: [facility] Ordering Phys: Cristina Dickey MD Date of Service: 10/31/16 1630 PROCEDURE: CT CHEST, ABDOMEN AND PELVIS WITH CONTRAST ([id number]) INDICATIONS: post thoracentesis ?pleural loculations TECHNIQUE: After the administration of intravenous contrast, 5 mm thick sections acquired from the lung apices to the symphysis. 5 mm thick coronal and sagittal reformats were acquired. Additional 7 mm thick coronal maximum intensity projection (MIP) reformats acquired through the lungs. Optional 10-minute delayed imaging may be performed from the kidneys to the bladder. For radiation dose reduction, the following was used: automated exposure control, adjustment of mA and/or kV according to patient size. COMPARISON: [facility], CT, CT ABD PELVIS W CON, 10/20/2016, 2:18. [facility], CT, CT CHEST ABD PELVIS W CON, 10/28/2016, 16:44. FINDINGS: Image quality: Excellent. CHEST: Lungs: Mild bilateral pleural effusions with decrease on the right compared to prior exam. The left pleural effusion is new. Prominent superimposed consolidative opacities, right greater than left are relatively unchanged. An in addition, there is consolidative opacity within the lingula, unchanged. Several cavitary foci are noted within the pleural fluid, relatively unchanged. Mediastinum: No mediastinal hematomas. Heart size is normal. No pericardial effusion. Thoracic aorta and pulmonary arteries demonstrate normal size and enhancement. No mediastinal or hilar adenopathy. Esophagus is normal in caliber. No hiatal hernia. Chest wall: No rib fractures. No subcutaneous emphysema. No axillary or supraclavicular adenopathy. Thyroid gland is unremarkable. ABDOMEN: Solid organs: Liver and spleen are normal in size and enhancement, without lacerations. Gallbladder is demonstrates several luminal calcifications. Biliary system is non-dilated. Pancreas enhances normally, without transection. No adrenal hematomas. There is continued interval improvement of the left kidney with only minimal residual appearance of perinephric abscess. Right kidney is unremarkable. Peritoneum and bowel: No free fluid or air. Unenhanced bowel loops demonstrate normal wall thickness and caliber. Nodes and vessels: No retroperitoneal or mesenteric adenopathy. Aorta and inferior vena cava are normal in size and enhancement. Miscellaneous: No ventral hernias. PELVIS: Genitourinary: Bladder wall thickness is normal. Miscellaneous: No inguinal hernias or adenopathy. Bones: Pelvic ring and hip joints appear intact. No vertebral compression fractures. IMPRESSION: 1. Mild bilateral pleural effusions with interval decrease on the right and interval development of the left. 2. Relatively unchanged appearance of cavitary foci within the areas of consolidation and effusion compared to prior exam. 3. No enhancing loculations identified within the pleural effusions. However, if concern for loculations persist, ultrasound is recommended for further evaluation 4. Continued interval improvement of left perinephric abscess. Dictated by: Rere Mina M.D. on 10/31/2016 at 19:51 Approved by: Rere Mina M.D. on 10/31/2016 at 20:04 [facility] [place] [address] Patient Name: LORI PETERSEN MR#: [id number] Location: [facility] Ordering Phys: Christal Simmons DO Date of Service: 10/31/16 1036 PROCEDURE: X-RAY CHEST ONE VIEW, PORTABLE ([id number]) INDICATIONS: sob, pleural effusion TECHNIQUE: One view of the chest was acquired. COMPARISON: [facility], CR, XR CHEST 1VW (PORTABLE), 10/30/2016, 15: 34. FINDINGS: Surgical changes and devices: Stable position right PICC. Lungs and pleura: No pneumothorax.. Residual right pleural effusion and persistent bibasilar air space opacities are present. Mediastinum: Mediastinal contours appear normal. Heart size is normal. Bones and chest wall: No suspicious bony lesions. Overlying soft tissues appear unremarkable. IMPRESSION: 1. Persistent small right pleural effusion and bibasilar airspace opacities. Continued radiographic surveillance to resolution is recommended. Dictated by: Mehdi Garces RRA Interpreted: Dana Caicedo MD on 10/31/2016 at 13:06 Transcribed by: CASTRO on 10/31/2016 at 13:07 Approved by: Dana Caicedo MD, PhD on 10/31/2016 at 16:37 [facility] Diagnostic [place] [address] Patient Name: LORI PETERSEN MR#: [id number] Location: [facility] Ordering Phys: Alex Pagan MD Date of Service: 10/28/16 1157 PROCEDURE: CT CHEST, ABDOMEN AND PELVIS WTIH CONTRAST ([id number]) INDICATIONS: 41 deg fever in MRSA bacteremia-Abscess or empyema TECHNIQUE: After the administration of oral and intravenous contrast, 5 mm thick sections acquired from the lung apices to the symphysis. 5 mm coronal and sagittal reformats were performed, with additional 7 mm coronal MIP reformats through the lungs. For radiation dose reduction, the following was used: automated exposure control, adjustment of mA and/or kV according to patient size. COMPARISON: [facility], CT, CT ANGIO CHEST PE, 10/20/2016, 2:18. [facility], CT, CT ABD PELVIS W CON, 10/20/2016, 2:18. FINDINGS: Image quality: Excellent. CHEST: Lungs and pleura: There are are bilateral pleural effusions, moderate on the right and small the left. There is consolidation within the bilateral lower lobes and inferior left lingula with air bronchograms demonstrated as well as small cavitary foci in the right lower lobe and left lingula. There are a few small bony nodules also demonstrated in the left lower lobe including a subpleural nodule measuring up to 9 mm in the left lower lobe on image 24. These appear similar compared to the prior study. Mediastinum: Heart size is normal. No pericardial effusion. There is a right upper extremity PICC line extending into the superior vena cava at the cavoatrial junction. Thoracic aorta and central pulmonary arteries are normal in size. There are a few mildly prominent mediastinal lymph nodes measuring up to 1 cm short axis which are nonspecific but likely reactive. Esophagus is normal in caliber. No hiatal hernia. Chest wall: No axillary or supraclavicular adenopathy by size criteria. There are scattered subcentimeter axillary lymph nodes bilaterally which are likely reactive. Thyroid gland demonstrates no discrete nodules. ABDOMEN: Solid organs: No focal hepatic lesions. The spleen is normal in size. There are a few gallstones are demonstrated in the gallbladder. There is mild gallbladder wall thickening and mucosal enhancement. Biliary system is non dilated. Pancreas enhances normally. No adrenal nodules. The kidneys demonstrate no hydronephrosis. Previously visualized areas of heterogeneous enhancement in the kidneys bilaterally have decreased in prominence compared to the prior study. There is also decrease in size of a small left perinephric collection laterally measuring approximately 1.5 cm compared to 2.6 cm previously. Peritoneum and bowel: There is mild fluid distention of a few small bowel loops with air-fluid levels suggestive of an ileus or gastroenteritis. No evidence of obstruction. There is moderate colonic stool distention suggesting constipation. The appendix is normal in appearance. No intraperitoneal abscess identified. No free fluid or air. Nodes and vessels: No retroperitoneal or mesenteric adenopathy by size criteria. Aorta and inferior vena cava are normal in size. Miscellaneous: No ventral hernias. PELVIS: Genitourinary: Bladder wall thickness is normal. Miscellaneous: No inguinal hernias or adenopathy. Bones: No suspicious bony lesions. No vertebral body compression fractures. IMPRESSION: 1. Bilateral consolidation in the lungs consistent with pneumonia with areas of cavitation suspicious for developing pulmonary abscesses in the right lower lobe and left lingula. 2. Bilateral pleural effusions, moderate on the right and small the left. 3. Decreased prominence of heterogeneous renal enhancement on the prior study compatible with pyelonephritis. There is also decrease in size of a small left perinephric collection consistent with a small perinephric abscess. 4. Cholelithiasis with mild gallbladder wall thickening. If there is clinical suspicion for cholecystitis, recommend further evaluation with ultrasound. Dictated by: Geovanny Ruiz M.D. on 10/28/2016 at 18:22 Approved by: Geovanny Ruiz M.D. 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 FINDINGS: PICC was placed by the intravenous therapy team from the right side. Fluoroscopic spot film demonstrates tip of PICC extending to the cavoatrial junction. IMPRESSION: Tip of PICC extends to the cavoatrial junction. Dictated by: Geovanny Ruiz M.D. on 10/25/2016 at 17:51 Approved by: Geovanny Ruiz M.D. on 10/25/2016 at 17:51 [facility] Diagnostic [place] [address] Patient Name: LORI PETERSEN MR#: [id number] Location: [facility] Ordering Phys: Terry Fields MD Date of Service: 10/20/16 0258 PROCEDURE: CT BRAIN WITHOUT CONTRAST ([id number]) INDICATIONS: Syncope, possible septic emboli TECHNIQUE: Noncontrast 4.5 mm thick angled axial sections acquired from the foramen magnum to the vertex, with coronal reformats. COMPARISON: None. FINDINGS: Image quality: Excellent. CSF spaces: Basal cisterns are patent. No extra-axial fluid collections. Ventricles are normal in size and shape. Brain: No midline shift. No intracranial masses or hemorrhage. Waggoner-white matter interface is normal. Skull and face: Calvarium and visualized facial bones are intact, without suspicious lesions. Sinuses: Visualized sinuses and mastoids are clear. IMPRESSION: 1. Normal head CT No significant discrepancy with the night shift supervisor radiology preliminary report. Dictated by: Mer Mandujano M.D. on 10/20/2016 at 8:21 Approved by: Mer Mandujano M.D. on 10/20/2016 at 8:23 [facility] Diagnostic [place] [address] Patient Name: LORI PETERSEN MR#: [id number] Location: [facility] Ordering Phys: Terry Fields MD Date of Service: 10/20/16 0101 PROCEDURE: CT ABDOMEN AND PELVIS WITH CONTRAST ([id number]) INDICATIONS: syncope, incontinence, chest pain TECHNIQUE: After the administration of intravenous contrast, 5 mm thick sections acquired from the diaphragm to the symphysis. 5 mm coronal and sagittal reformats were acquired. For radiation dose reduction, the following was used: automated exposure control, adjustment of mA and/or kV according to patient size. COMPARISON: [facility], CT, ABD/PELVIS W/CON (PNL), 10/28/2009, 4: 31. FINDINGS: Image quality: Excellent. ABDOMEN: Lung bases: Patchy airspace opacity is noted in the lung bases bilaterally suspicious for pneumonia. Trace bilateral pleural fluid collections noted. Heart size is normal. Solid organs: Liver and spleen are normal in size and enhancement. Gallbladder multiple large cholesterol gallstones.. Biliary system is non dilated. Pancreas enhances normally. No adrenal nodules. Kidneys demonstrate normal size without hydronephrosis. Multiple, bilateral, hypoattenuating, heterogeneously enhancing lesions are noted in the kidneys. Lesions are suspicious for pyelonephritis possibly secondary to septic emboli. Peritoneum and bowel: Bowel loops demonstrate normal wall thickness and caliber. No free fluid or air. The appendix is normal. Nodes and vessels: No retroperitoneal or mesenteric adenopathy by size criteria. Aorta and inferior vena cava are normal in size. Miscellaneous: No ventral hernias. PELVIS: Genitourinary: Bladder wall thickness is normal. Miscellaneous: No inguinal hernias or adenopathy. Bones: No suspicious bony lesions. No vertebral body compression fractures. IMPRESSION: 1. Patchy airspace opacities in the lung bases bilaterally suspicious for pneumonia. 2. Probable bilateral pyelonephritis. 3. Bilateral pyelonephritis and by basilar pneumonia concerning for septic emboli. Please correlate with clinical data. 4. Cholelithiasis. Dictated by: Dana Caicedo MD, PhD on 10/20/2016 at 9:33 Approved by: Dana Caicedo MD, PhD on 10/20/2016 at 9:40 [facility] Diagnostic Imaging Department [place], [place] [id number] Patient Name: LORI PETERSEN MR#: [id number] Location: [facility] Ordering Phys: Terry Fields MD Date of Service: 10/20/16 010 PROCEDURE: CT ANGIO CHEST PULMONARY EMBOLISM ([id number]) INDICATIONS: syncope, incontinence, chest pain TECHNIQUE: After the administration of intravenous contrast, 2 mm thick sections acquired from the pulmonary apices to the posterior costophrenic angles. 3-dimensional maximum intensity projection (MIP) coronal and sagittal reformats were then acquired through the thorax. For radiation dose reduction, the following was used: automated exposure control, adjustment of mA and/or kV according to patient size. COMPARISON: [facility], CR, XR CHEST 1VW (PORTABLE), 10/20/2016, 1: 10. FINDINGS: Image quality: Excellent. Pulmonary arteries: Pulmonary arteries are normal in size, and demonstrate no intraluminal filling defects to suggest central pulmonary embolism. Lungs and pleura: Bilateral infiltrates and pulmonary nodules are present involving the lower lobes and lingula consistent with pneumonia. There is small right effusion and trace left effusion. Central and peripheral airways are patent. Mediastinum: Heart size is normal, without pericardial effusion. No mediastinal or hilar adenopathy. Thoracic aorta is normal in caliber and enhancement. Esophagus is normal in caliber, without hiatal hernia. Bones and chest wall: No suspicious bony lesions. Ribs and thoracic spine appear intact throughout. Thyroid gland is normal. No axillary or supraclavicular adenopathy. Abdomen: Visualized upper abdominal solid organs appear normal in the early arterial phase of enhancement. IMPRESSION: 1. No evidence for central pulmonary embolism. 2. Bilateral pulmonary infiltrates and nodules consistent with pneumonia, including atypical infections. 3. Small right effusion trace left effusion. No significant discrepancy with the night shift supervisor radiology preliminary report. Dictated by: Mre Mandujano M.D. on 10/20/2016 at 9:30 Approved by: Mer Mandujano M.D. on 10/20/2016 at 9:36 ECG 12 Lead ECG Interpretation: Sinus tachycardia rate 114 Time: 01:12 Interpreted by: ED physician Cardiac Echo Impression Echocardiogram Report Name: LORI PETERSEN Study Date: 10/20/2016 Height: 70 in Hospital Exam Location: [facility] Weight: 177 lb Gender: Male BSA: 2.0 m2 : 1990 Age: 26 yrs BP: 106/59 mmHg Reason For Study: Endocarditis History: IVDA, SMOKER Ordering Physician: [facility] Interpretation Summary The left ventricle is normal in size, wall thickness, and systolic function without any focal wall motion abnormalities. The ejection fraction is estimated to be 60-65%. The right ventricle is normal in size and function. The left atrium is mildly dilated. Right atrial size is normal. There is no obvious valvular vegetation identified on this exam. Consider EFREN if there is a high degree of clinical suspicion for endocarditis and clinically appropriate. There is no significant valvular heart disease. The aortic root is normal size. Procedure: A two-dimensional transthoracic echocardiogram with color flow and Doppler was performed. The study quality was technically adequate. There is no prior echocardiogram noted for this patient. The patient was in normal sinus rhythm during the exam. Left Ventricle: The left ventricle is normal in size, wall thickness, and systolic function without any focal wall motion abnormalities. A false chord is noted (normal variant). The ejection fraction is estimated to be 60-65%. The transmitral spectral Doppler flow pattern is normal for age. Right Ventricle: The right ventricle is normal in size and function. Atria: The left atrium is mildly dilated. Right atrial size is normal. There is no Doppler evidence for an interatrial shunt. Mitral Valve: The mitral valve is normal in structure and function. There is trace mitral regurgitation. Aortic Valve: The aortic valve is normal in structure and function. No aortic regurgitation is present. Tricuspid Valve: The tricuspid valve is normal in structure and function. Pulmonary artery pressures cannot be estimated because of the lack of a measurable TR jet velocity. Pulmonic Valve: The pulmonic valve is normal in structure and function. There is no pulmonic valvular regurgitation. There is no obvious valvular vegetation identified on this exam. Consider EFREN if there is a high degree of clinical suspicion for endocarditis and clinically appropriate. There is no significant valvular heart disease. Great Vessels: The aortic root is normal size. The ascending aorta is normal in size. The IVC has a measurement of 20 mm. The patient could not perform sniff test. Pericardium/ Pleura There is no pericardial effusion. MMode/2D Measurements & Calculations LVIDd: 5.4 cm RA long axis LVOT diam LVIDs: 3.2 cm LA A2 area: 21.8 cm FS: 39.5 % LA A4 area: 23.1 cm RA area AoV Opening EPSS: 0.47 cm LA length (vol): 6.2 cm IVSd: 0.66 cm LA vol: 68.8 ml : 18.3 cm Ao root diam LVPWd: 0.71 cm LA vol index RA vol : 59.5 ml asc Aorta RA Diam: 3.2 cm IVC diam: 2.0 cm : 30.0 mm2 LV rodrigues. diameter/BSA LV sys. diameter/BSA RVD1 (basal) (cm/m^2): 2.7 (cm/m^2): 1.6 Doppler Measurements & Calculations Ao V2 max MV E max jorge MV E/A: 2.3 PA V2 max : 171.7 cm/sec : 117.0 cm/sec Med Peak E' Jorge : 99.6 cm/sec Ao max PG MV A max jorge PA mean PG : 11.8 mmHg : 50.8 cm/sec E/E' med: 8.9 Ao mean PG MV P1/2t: 66.3 msec Lat Peak E' Jorge PA Accel Time : 0.12 sec LVOT Max Jorge E/E' lat: 6.0 : 123.3 cm/sec E/e' average: 7.4 KAILYN(I,D): 3.2 cm Pulm A Revs Dur sev ratio MV A dur: 0.09 sec MV dec time MV P1/2t max jorge Ao V2 mean LV V1 max PG : 0.23 sec : 113.9 cm/sec Ao V2 VTI: 25.9 cm LV V1 VTI MVA(P1/2t): 3.3 cm2 : 20.9 cm KAILYN(V,D): 2.8 cm2 PA V2 mean KAILYN indexed to BSA Pulm A Revs Dur - MV A : 68.9 cm/sec (cm^2/m^2): 1.6 Dur: -0.01 msec Reading Physician:PM Brief History Pulmonology Consultation Note: Attending Dr. 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 Hospital day #11. Per admission HPI: The patient described chest pain as constant, severe, sharp and tight, with radiation to back, worse with inspiration and coughing, made better by PO Percocet. Abdominal pain described as constant severe, diffuse, made worse with inspiration and coughing, radiation to back. Associated with shortness of breath, tachycardia, nausea, vomiting, fever, chills, sweating, urinary incontinence, itching. Patient denies blood in stool, numbness, tingling , change in vision, auditory hallucination, visual hallucination, thoughts of suicide, thoughts of homicide. Today: The patient complains of substernal pleuritic chest pain that is located in the center of his chest. He has had the pain for several weeks. The pain does not radiate and is constant. The pain worsens with cough. He rates the pain a +6 out of 10. He describes the pain as sharp. He denies shortness of breath. He also has left-sided mid back pain. He continues to have fevers and complains of diaphoresis. He also endorses nausea but has not vomited. He denies headache, blurry vision, abdominal pain, dysuria, diarrhea or constipation, upper or lower extremity pain. . Hospital Course 26 y.o. M with past medical history of IVDU heroin and methamphetamine, needle sharing, three previous OD on heroin, last heroine use 7-8 hours prior to ED admission, last meth use yesterday, admitted to ED for worsening chest and abdominal pain. He has had at least 4 different types of organisms growing in his blood cultures so far AFB smear is negative cultures blood cultures from 08/2016 are negative. He has a plan to go on IV vancomycin and Septra role in to [facility] once he is stable. There was a consideration for bath procedures due to findings on his thoracentesis procedure however pulmonology is holding off now as patient is clinically improving. # Acute MRSA bacteremia. present on admission - Patient has history of IVDU heroin and methamphetamine, multiple septic emboli noted on CT of lungs and kidneys, indicative of right and left sided heart valve involvement - appreciate ID consult. will f/u w/ recs - Continue with IV vancomycin and Ceftaroline per ID - Patient has been afebrile -As pulmonology is not planning any further interventions and ID approves, we will discharge patient to [facility] today # Sepsis, acute. Present at the time of admission Patient also has septic pulmonary emboli and possibly pyelonephritis. - Likely source of infection is intravenous drug use - WBC 23, lactic acid 1.6 on admission - Abx as noted above -- White count has been stable # CT chest 10/28: "Bilateral consolidation in the lungs consistent with pneumonia with areas of cavitation suspicious for developing pulmonary abscesses in the right lower lobe and left lingula. Bilateral pleural effusions , moderate on the right and small the left." - appreciate pulmonology and surgery consults. will f/u w/ recs - s/p thoracentesis on 10/30/16 showing exudative right pleural effusion, likely complex parapneumonic effusion. - Cavitary left lung lesion--most likely septic emboli. -- Pulmonology is currently holding off on doing a VATS procedure as clinically patient is improving # Acute Urinary retention. - Possibly due to septic emboli to kidneys vs UTI vs STD/STI - Urine culture: mixed urogenital liliana - UA is negative. Will follow clinically. -- Patient says he has no issues now # IVDU heroin and methamphetamine - Prior overdoses x 3, - Clonazepam 0.5 PRN for signs of withdrawal - Patient currently on scheduled methadone and clonidine with IV Ativan and IV morphine when necessary pain - Discontinued Lorazepam, will reduce Methadone to 5 mg twice a day tomorrow # High risk behavior - IVDU, needle sharing, never screened for HIV, Hepatitis, STD/STI - HIV 1/2 screen ordered (negative) - Hepatitis panel (hep C antibody positive ) # Acute hyponatremia. not poa. ongoing but improved on 33 today - Stable at the time of discharge Disposition: Discharge to [facility] in [facility] for completion of antibiotics Exam Vital Signs (Last) Date Time Temp Pulse Resp B/P Pulse Ox O2 Delivery O2 Flow Rate FiO2 11/06/16 09:58 37.2 54 18 101/59 97 Room Air Exam Gen.: No acute distress HEENT normocephalic, atraumatic Heart: Regular rate and rhythm no S3-S4 murmurs Lungs clear to auscultation no crackles or wheezes Abdomen flat, nontender Extremities: Nontender negative for swelling Psych: Negative for anxiety affect resigned Neuro: No focal deficits Test 10/20/16 00:30 10/20/16 03:10 10/20/16 05:00 10/20/16 08:41 Erythrocyte Sedimentation Rate 15mm/hr (0-15) Hold Purple Top Tube Received (Received) Prothrombin Time 11.9sec (8.1-12.5) Prothromb Time International Ratio 1.11ratio Activated Partial Thromboplast Time 30.6sec (22.8-33.0) Hold Blue Top Tube Received (Received) Phosphorus Level 3.8mg/dL (2.5-4.9) Magnesium Level 2.2mg/dL (1.6-2.6) Troponin T 0.010ug/L (0.0-0.011) Pro-B-Type Natriuretic Peptide 48.37pg/mL (0-86) Lipase 17U/L (13-60) Procalcitonin 0.49ng/mL (0.00-0.08) Hold [place] Top Tube Received (Received) Hold [place] Top Tube Received (Received) Urine Color Dark yellow (YELLOW) Urine Appearance Clear (CLEAR,HAZY) Urine pH 6.5 (5.0-8.0) Urine Specific [place] 1.010 (1.003-1.035) Urine Protein Negativemg/dL (NEG,TRACE) Urine Glucose (UA) Negativemg/dL (NEGATIVE) Urine Ketones Negativemg/dL (NEGATIVE) Urine Occult Blood Negative (NEGATIVE) Urine Nitrite Negative (NEGATIVE) Urine Bilirubin Negative (NEGATIVE) Urine Urobilinogen 1.0mg/dL (NORMAL) Urine Leukocyte Esterase Negative (NEGATIVE) Urine RBC 0-2/hpf (0-2) Urine WBC 0-5/hpf (0-5) Urine Epithelial Cells Occasional/hpf (NONE-MOD) Urine Crystals None seen (NONE SEEN) Urine Bacteria Few/hpf (NONE-FEW) Urine Hyaline Casts None/lpf (NONE) Urine Granular Casts None seen (NONE SEEN) Urine Waxy Casts None seen (NONE SEEN) Urine Red Blood Cell Casts None seen (NONE SEEN) Urine White Blood Cell Casts None seen (NONE SEEN) Urine Mucus None seen (None Seen) Urine Trichomonas None seen (NONE SEEN) Urine Yeast None (NONE SEEN) Urinalysis Comment None Urine Culture Reflexed Not indicated Chlamydia trachomatis DNA (LELO) Negative (Negative) Neisseria gonorrhoeae DNA (LELO) Negative (Negative) Rheumatoid Factor 18.0IU/mL (0.0-13.9) Rapid Plasma Reagin Non reactive (Non Reactive) Hepatitis A IgM Antibody Negative (Negative) Hepatitis B Surface Antigen Negative (Negative) Hepatitis B Core IgM Antibody Negative (Negative) Hepatitis C Antibody >11.0s/co ratio Hepatitis C Antibody Comment Comment (.) HIV (1&2) Ag and Ab, 4th Generation Non reactive (Non Reactive) Test 10/21/16 11:00 10/26/16 05:00 10/29/16 05:32 10/29/16 06:20 Hepatitis C Virus Quantitation 94618WP/mL (.) Hepatitis C RNA (PCR) log10 4.551 (.) Hepatitis C Genotype 1a (.) Hepatitis C Genotype Comment Comment (.) Hepatitis C Comment Comment (.) Random Vancomycin Level 10.0ug/mL Rx Lactic Acid Level 0.6mmol/L (0.4-2.0) Total Bilirubin 0.2mg/dL (0.0-1.2) Aspartate Amino Transf (AST/SGOT) 32U/L (0-50) Alanine Aminotransferase (ALT/SGPT) 14U/L (0-44) Alkaline Phosphatase 46U/L (25-150) Lactate Dehydrogenase 338U/L (100-190) Total Protein 7.4g/dL (6.4-8.4) Albumin 2.5g/dL (3.4-5.0) Test 10/30/16 15:59 10/30/16 16:01 11/04/16 05:00 11/06/16 05:49 Body Fluid Source Pleural fluid Body Fluid Color Straw (Clear) Body Fluid Appearance Clear Body Fluid WBC 54/mm3 Body Fluid RBC 1235/mm3 Body Fluid Polynuclear WBCs 7% Body Fluid Lymphocytes 34% Body Fluid Monocytes 57% Body Fluid Eosinophils 2% Body Fluid Basophils 0% Body Fluid Lactate Dehydrogenase 512U/L Pleural Fluid Total Protein 4.8g/dL Pleural Fluid Glucose 76mg/dL Body Fluid pH 7.7 (Not Estab.) Neutrophils (%) (Auto) 60.4% (40-74) Lymphocytes (%) (Auto) 21.6% (14-46) Monocytes (%) (Auto) 14.0% (4-12) Eosinophils (%) (Auto) 3.2% (0-5) Basophils (%) (Auto) 0.2% (0-3) White Blood Count 5.7th/mm3 (3.8-10.1) Red Blood Count 4.01mil/mm3 (4.40-5.80) Hemoglobin 10.9g/dL (13.8-17.2) Hematocrit 34.1% (41.0-50.0) Mean Corpuscular Volume 85.0fL (81-100) Mean Corpuscular Hemoglobin 27.2pg (27.0-35.0) Mean Corpuscular Hemoglobin Concent 32.0% (32.0-37.0) Red Cell Distribution Width 14.2% (12.3-15.4) Platelet Count 303bil/L (150-400) Sodium Level 136mEq/L (134-144) Potassium Level 4.5mEq/L (3.5-5.2) Chloride Level 102mEq/L (97-108) Carbon Dioxide Level 22mmol/L (18-29) Blood Urea Nitrogen 7mg/dL (6-20) Creatinine 0.57mg/dL (0.76-1.27) Estimat Glomerular Filtration Rate 187mL/min (>59) Glucose Level 94mg/dL (60-99) Calcium Level 8.4mg/dL (8.5-10.1) Test 11/06/16 08:30 Vancomycin Level Trough 19.8mcg/mL Discharge Medications Discharge Medications Vancomycin/0.9 % Sod Chloride (Vancomycin 1 G/100Ml-0.9% NaCl) 1 Gram/100 Ml Plast..bag 2 GM IV Q8H Prescribed by: SHASHI BLAIR DO As needed ([Acetaminophen]) 325 MG TABLET 650 MG PO Q4H PRN PRN PAIN/FEVER Prescribed by: SHASHI BLAIR DO ([Al Hydrox/Mg Hydrox/Simeth]) 30 ML SUSP 30 ML PO Q6H PRN PRN For Dyspepsia or Heartburn Prescribed by: SHASHI BLAIR DO Clonazepam (Clonazepam) 0.5 Mg Tablet 0.5 MG PO BID PRN PRN For Anxiety or Agitation Prescribed by: SHASHI BLAIR DO Polyethylene Glycol 3350 (Miralax) 17 Gm Powd.pack 17 GM PO DAILY PRN PRN For Constipation Prescribed by: SHASHI BLAIR DO Sennosides (Senna) 8.6 Mg Tablet 17.2 MG PO BID PRN PRN For Constipation Prescribed by: SHASHI BLAIR DO oxyCODONE-Acetaminophen 5-325 mg (oxyCODONE-Acetaminophen 5-325 mg) 1 Each Tablet 1 TAB PO Q6H PRN PRN For Pain Prescribed by: SHASHI BLAIR DO Followup Plan Follow-up plan Please note that patient was on a Methadone taper in this hospital. He was on methadone 10 mg TID which was reduced to 7 mg TID and then to 5 mg BID. Patient is currently on 5 mg BID Methadone for drug withdrawl. Dr. Dejesus at the receiving hospital agreed to take on this taper upon patient's admission there. We recommend that patient be given the current dose for 4 days, then Methadone 2.5 mg BID for 7 days, Methadone 2.5 mg QD for a week then reassess before stopping. Please draw Vancomycin troph [facility] on 11/08/16. Stop date for vanomycin is 12/05/16 Discharge Diet: No restrictions Discharge Activity: No restrictions Patient Instructions Please complete your abx thr December 05, 2016. You were counselled on high risk behaviors which caused the illness and avoiding them in the future. Shashi Blair DO Nov 06, 2016 14:17
--- NOTE | 2016-11-06 16:09 | NUR ---
Discharge Pt discharged from facility to go to [facility] for swing bed at 1607. Taken off unit in wheelchair, accompanied by SECURITY SUPPORT ANALYST to wait for cab. Belongings sent with pt. Transfer paperwork given to patient to pass on to hospital staff there. PICC line left in place, as pt will be receiving IV abx during his stay. Report called to [facility] at 1505. SECURITY SUPPORT ANALYST waiting at door with pt until cab arrives.
--- NOTE | 2016-11-06 16:32 | NUR ---
Social Work: Discharge Data: Pt is on day 17 of hospitalization. EMR reviewed. D/C orders were in. UR specialist set up transportation for pt with their [employer] benefit by taxi instructing them to not stop on the way to [facility]. Clinicals and d/c orders faxed. No further d/c planning needs at this time. Assessment: Pt who is independent at baseline, chemical dependency. Plan: Pt discharged to [facility] swing bed today via taxi at 4:00pm. No further d/c planning needs at this time. KINGA Murphy
--- NOTE | 2016-11-06 16:36 | NUR ---
staff received call from [facility] [place] arrived [place] their facility.
== END 2016-11-06 16:10 | disposition critical access hospital (66) | DRG 871 ==
LOC: SED 23:57 → PCC 10-20 04:27 → MPC 10-22 12:51
PROVIDERS: ADMIT Internal Medicine; ATTEND Internal Medicine
PROC: B246ZZ4 Ultrasonography of Right and Left Heart, Transesophageal (ICD-10-PCS; 2016-10-23)
PROC: 0W993ZX Drainage of Right Pleural Cavity, Percutaneous Approach, Diagnostic (ICD-10-PCS; principal; 2016-10-30)
DX: A41.02 Sepsis due to Methicillin resistant Staphylococcus aureus (principal); I26.90 Septic pulmonary embolism without acute cor pulmonale; I33.0 Acute and subacute infective endocarditis; I76 Septic arterial embolism; N15.1 Renal and perinephric abscess; J90 Pleural effusion, not elsewhere classified; E87.1 Hypo-osmolality and hyponatremia; F17.210 Nicotine dependence, cigarettes, uncomplicated; R33.8 Other retention of urine; Z72.89 Other problems related to lifestyle; B19.20 Unspecified viral hepatitis C without hepatic coma; F15.10 Other stimulant abuse, uncomplicated; F11.10 Opioid abuse, uncomplicated; B95.62 Methicillin resistant Staphylococcus aureus infection as the cause of diseases classified elsewhere